=== PATIENT | male | born 1990 | race Two or more races ===

== ENCOUNTER → 2021-05-24 14:19 | Outpatient (BNVA) | payer OTHER, SELFPAY | PROVIDERS: PCP Hospitalist; Visit Provider Anesthesiology | DX: G89.21 Chronic pain due to trauma (principal); G93.1 Anoxic brain damage, not elsewhere classified; N31.9 Neuromuscular dysfunction of bladder, unspecified; R30.0 Dysuria; I69.30 Unspecified sequelae of cerebral infarction; S78.119A Complete traumatic amputation at level between unspecified hip and knee, initial encounter; F17.210 Nicotine dependence, cigarettes, uncomplicated; F12.90 Cannabis use, unspecified, uncomplicated; Z93.3 Colostomy status; Z99.3 Dependence on wheelchair | CPT/HCPCS: 99202 ==

== ENCOUNTER 2023-11-15 10:54 | Outpatient (AMB) | payer OTHER, SELFPAY ==
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
== END 2023-11-15 11:54 | disposition home or self-care (01) ==
PROVIDERS: Visit Provider Urology
DX: N20.0 Calculus of kidney (principal); N39.0 Urinary tract infection, site not specified
CPT/HCPCS: 99213

== ENCOUNTER → 2023-11-15 10:54 | Outpatient (BNVA) | payer OTHER, SELFPAY | PROVIDERS: Visit Provider Urology | DX: N20.0 Calculus of kidney (principal); N39.0 Urinary tract infection, site not specified | CPT/HCPCS: 99212 ==

== ENCOUNTER 2023-11-21 13:32 | Outpatient (REF) | payer OTHER, SELFPAY ==
--- NOTE | ~2023-11-21 | XR_ITS ---
EXAMINATION: XR ABDOMEN KUB CLINICAL INDICATION: Calculus of kidney. COMPARISON: CT abdomen and pelvis 04/16/2017. TECHNIQUE: 2 AP views of the abdomen. FINDINGS: Nonobstructive bowel gas pattern. Moderate amount of stool in the colon. Visualization of the bilateral kidneys is limited due to overlying bowel. Left ureteral stent overlying the left kidney proximally and bladder distally. A 0.9 cm calculus overlies the interpolar region of left kidney. Possible smaller left renal calculi, although evaluation limited due to overlying bowel. Surgical clips in the pelvis. Degenerative changes in the lumbar spine. XR/XR KUB IMPRESSION: Left ureteral stent. 0.9 cm calculus overlies the interpolar region of left kidney. Possible smaller left renal calculi, although evaluation limited due to overlying bowel.
== END 2023-11-21 13:33 | disposition home or self-care (01) ==
LOC: HO.XRAY 13:32
PROVIDERS: Visit Provider Urology
DX: N20.0 Calculus of kidney (principal); N31.9 Neuromuscular dysfunction of bladder, unspecified
CPT/HCPCS: 52000; 74018

== ENCOUNTER 2023-11-21 14:08 | Outpatient (AMB) | payer OTHER, SELFPAY ==
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
== END 2023-11-21 15:06 | disposition home or self-care (01) ==
PROVIDERS: Visit Provider Urology
DX: N20.0 Calculus of kidney (principal)
CPT/HCPCS: 52000

== ENCOUNTER 2024-01-11 11:59 | Outpatient (REF) | payer OTHER, SELFPAY ==
[2024-01-11 12:14] LABS: Appearance Urine Turbid; Color Urine Dark Yellow; Glucose Urine UA Negative (Negative); Leukocyte Esterase Urine Large (3+) (Negative); Nitrite Urine Positive (Negative); PH 6.5 (5.0-9.0); Specific Gravity - Urine 1.015 (1.005-1.025); UMIC TRIGGER UA YES; Urine Blood Large (3+) (Negative); Urine Ketones Negative (Negative); Urine Protein 100 (2+) mg/dL (Neg-Trace)
[2024-01-11 12:17] LABS: Bacteria Urine Trace (None Seen); RBC Urine >20 /HPF (0-2); Squamous Epithelial Cell Urine 0-2 /HPF (0-2); WBC Urine >50 /HPF (0-5)
== END 2024-01-11 12:00 | disposition home or self-care (01) ==
LOC: HO.LNP 11:59
PROVIDERS: Visit Provider Urology
DX: N39.0 Urinary tract infection, site not specified (principal); N20.0 Calculus of kidney
CPT/HCPCS: 81001; 87086; 87088; 87186

== ENCOUNTER 2024-01-15 08:58 | Day surgery (SDC) | payer OTHER, SELFPAY ==
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
[2024-01-15] VITALS (7 sets, daily range): BP systolic 99–161; BP diastolic 60–87; PULSE 77–99; RESP 16–18; TEMP 36.1–37.1; O2SAT 97–100; BMI 19.0
--- OUTSIDE RECORDS SUMMARY | 2024-01-15 09:00 | XMS_ITS | Continuity of Care Document ---
Author Organization [facility] Address [address] [place] [address]- Care Team Providers Care Chief Of Pediatric Urology Name Role Phone Not on Staff, PCP Primary Care Physician Unavail able Encounter [facility] Date(s): 09/21/20 - 10/21/[address] [id number] Attending Physician: Alexander Jama Admitting Physician: Alexander Jama Referring Physician: AdmtrAlexander Allergies, Adverse Reactions, Alerts Substance Reaction Severity Status morphine 1 Active linezolid Hives Active 1sweats Immunizations Not Given Vaccine Date Status Refusal Reason pneumococcal 23-valent vaccine 1 11/11/19 Not Give n Patient Refuses pneumococcal 23-valent vaccine 06/14/19 Not Given Patient Refuses pneumococcal 23-valent vaccine 02/02/15 Not Given Patient Refuses 1Result Comment: patient refuses stating dont bother me. Medications Acetaminophen 0 Refills, Maintenance, 02/06/15 11:41:47 Start Date: 02/06/15 Status: Ordered amitriptyline 25 mg oral tablet 25 mg, 1, tablet, By Mouth, Daily at bedtime, # 180 tablet, Refills 0, Maintenance, 02/19/20 9:56:00 EDT Start Date: 02/19/20 Status: Ordered baclofen 10 mg oral tablet 10 mg, 1, tablet, By Mouth, 3 times a day, # 270 tablet, Refills 0, Maintenance, 02/19/20 9:56:00 EDT Start Date: 02/19/20 Status: Ordered Colace sodium 100 mg oral capsule 1 capsule = 100 mg, By Mouth, 3 times a day, PRN Constipation, # 30 capsule, 0 Refills, Maintenance, 02/04/15 15:17:14, Capsule Start Date: 02/04/15 Stop Date: 02/14/15 Status: Ordered Compazine Tablet = 5 mg, By Mouth, 4 times a day, 0 Refills, Maintenance, 03/21/20 14:22:00 EDT, Tablet Start Date: 03/21/20 Status: Ordered duloxetine 30 mg oral enteric coated capsule 1 capsule = 30 mg, By Mouth, Daily, do not crush or chew, 0 Refills, Maintenance, 02/19/20 9:56:00 EDT, CR Capsule Start Date: 02/19/20 Status: Ordered lactulose 10 gm/15 ml oral syrup 30 mL = 20 Gm, By Mouth, 3 times a day, PRN Constipation, # 30 mL, 0 Refills, Maintenance, 06/04/1910:46:00 EST, Syrup, [facility], 30 mL By Mouth 3 times a day,PRN:Constipation, 175, cm, 06/03/19 20:50:00 EST, Height, 49.3, kg, ... Start Date: 06/04/19 Status: Ordered Lexapro 10 mg oral tablet 1 tablet = 10 mg, By Mouth, Daily in AM, # 30 tablet, 0 Refills, Maintenance, 06/16/19 9:33:00 EST,Tablet, [id number], 176, cm, 06/16/19 6:59:00 EST, Height, 49, kg, 06/14/19 16:20:00 EST, Dry Weight Start Date: 06/16/19 Status: Ordered MiraLax oral powder for reconstitution = 17 Gm, By Mouth, Daily, dissolve in water before taking, # 255 Gm, 0 Refills, Maintenance, 06/04/19 11:10:00 EST, REC Powder, [facility], 17 Gm By Mouth Daily,Instr:dissolve in water before taking, 175, cm, 06/03/19 20:50:00 EST, Heigh... Start Date: 06/04/19 Status: Ordered Neurontin 300 mg oral capsule 300 mg, 1, capsule, By Mouth, 3 times a day, # 180 capsule, Refills 0, Tot. Refills 0, Maintenance,06/04/19 10:45:00 EST, Route to Pharmacy Electronically, [facility], 175, cm, 06/03/19 20:50:00 EST, Height, 49.3, kg, 05/31/19 23:20:00... Start Date: 06/04/19 Status: Ordered nicotine 2 mg oral transmucosal gum = 2 mg, Chew, Every hour, PRN Other, Nicotine Withdrawal Symptoms (NOT to exceed 24 pieces per day), # 10 each, 0 Refills, Maintenance, 06/04/19 10:28:00 EST, Gum Start Date: 06/04/19 Status: Ordered ondansetron 4 mg oral tablet, disintegrating 1 tablet = 4 mg, By Mouth, Every 8 hours, PRN as needed for nausea/vomiting, # 15 tablet, 0 Refills, Maintenance, 08/15/20 5:41:00 EST, DIS Tablet, [facility] #[id number], Partial fill upon patient request if the prescription is for a schedule II opioid d... Start Date: 08/15/20 Status: Ordered ondansetron 4 mg oral tablet, disintegrating 1 tablet = 4 mg, By Mouth, Every 8 hours, PRN as needed for nausea/vomiting, # 9 tablet, 0 Refills,Maintenance, 05/18/20 23:27:00 EST, DIS Tablet, [id number], Partial fill upon patient request if the prescription is for a schedule II... Start Date: 05/18/20 Stop Date: 05/21/20 Status: Ordered ondansetron 4 mg oral tablet, disintegrating 1 tablet = 4 mg, By Mouth, Every 8 hours, PRN as needed for nausea/vomiting, # 10 tablet, 0 Refills, Maintenance, 06/14/20 0:24:00 EST, DIS Tablet, [facility]/pharmacy #[id number], Partial fill upon patient request if the prescription is for a schedule II opioid d... Start Date: 06/14/20 Status: Ordered oxyCODONE 10 mg oral tablet 1 tablet = 10 mg, By Mouth, Every 4 hours, PRN as needed for pain, 0 Refills, Maintenance, :55:00 EDT, Tablet, Partial fill upon patient request Start Date: 02/19/20 Status: Ordered Senna By Mouth, 0 Refills, Maintenance, 05/28/19 23:46:00 EST Start Date: 05/28/19 Status: Ordered Zofran 4 mg oral tablet 1 tablet = 4 mg, By Mouth, Every 8 hours, PRN Nausea & Vomiting, # 15 tablet, 0 Refills, Maintenance, 06/16/19 11:41:00 EST, Tablet, [facility], 176, cm, 06/16/19 6:59:00 EST, Height, 49, kg, 06/14/19 16:20:00 EST, Dry Weight Start Date: 06/16/19 Stop Date: 06/21/19 Status: Ordered Zofran 4 mg oral tablet 1 tablet = 4 mg, By Mouth, Every 8 hours, PRN as needed for nausea/vomiting, # 9 tablet, 0 Refills,Maintenance, 07/10/20 20:03:00 EST, Tablet, [facility]/pharmacy #[id number], Partial fill upon patient request if the prescription is for a schedule II opioid drug.... Start Date: 07/10/20 Status: Ordered Problem List Condition Effective Dates Status Health Status Inform ant Hemorrhagic shock(Confirmed) Active Bladder injury(Confirmed) Active Social History Social History Type Response Smoking Status [place] [facility] [place]: 02/04/15 Sex
--- OUTSIDE RECORDS SUMMARY | 2024-01-15 09:00 | XMS_ITS | Continuity of Care Document ---
Author Organization [facility] ter Address [address] [place] [id number]- Care Team Providers Care Pbx Manager Name Role Phone Not on Staff, PCP Primary Care Physician Unavail able [place] [facility] [place]/25/[address] [address]- Discharge Disposition: A-D/C Walkout Attending Physician: Not on Staff, Attending MD Admitting Physician: Not on Staff, Admitting MD Referring Physician: Not on Staff, Referring MD Allergies, Adverse Reactions, Alerts Substance Reaction Severity [...] mL, 0 Refills, Maintenance, 06/04/1910:46:00 EST, Syrup, [facility], 30 mL By Mouth 3 times a day,PRN:Constipation, 175, cm, 06/03/19 20:50:00 EST, Height, 49.3, kg, ... Start Date: 06/04/19 Status: Ordered Lexapro 10 mg oral tablet 1 tablet = 10 mg, By Mouth, Daily in AM, # 30 tablet, 0 Refills, Maintenance, 06/16/19 9:33:00 EST,Tablet, [facility] #[id number], 176, cm, 06/16/19 6:59:00 EST, Height, 49, kg, 06/14/19 16:20:00 EST, Dry Weight Start Date: 06/16/19 Status: Ordered MiraLax oral powder for reconstitution = 17 Gm, By Mouth, Daily, dissolve in water before taking, # 255 Gm, 0 Refills, Maintenance, 06/04/19 11:10:00 EST, REC Powder, [facility], 17 Gm By Mouth Daily,Instr:dissolve in water before taking, 175, cm, 06/03/19 20:50:00 EST, Heigh... Start Date: 06/04/19 Status: Ordered Neurontin 300 mg oral capsule 300 mg, 1, capsule, By Mouth, 3 times a day, # 180 capsule, Refills 0, Tot. Refills 0, Maintenance,06/04/19 10:45:00 EST, Route to Pharmacy Electronically, [facility], 175, cm, 06/03/19 20:50:00 [...] Refills, Maintenance, 08/15/20 5:41:00 EST, DIS Tablet, [facility]/pharmacy #[id number], Partial fill upon patient request if the prescription is for a schedule II opioid d... Start Date: 08/15/20 Status: Ordered ondansetron 4 mg oral tablet, disintegrating 1 tablet = 4 mg, By Mouth, Every 8 hours, PRN as needed for nausea/vomiting, # 9 tablet, 0 Refills,Maintenance, 05/18/20 23:27:00 EST, DIS Tablet, [facility] #[id number], Partial fill upon patient request if the prescription is for a schedule II... Start Date: 05/18/20 Stop Date: 05/21/20 Status: Ordered ondansetron 4 mg oral tablet, disintegrating 1 tablet = 4 mg, By Mouth, Every 8 hours, PRN as needed for nausea/vomiting, # 10 tablet, 0 Refills, Maintenance, 06/14/20 0:24:00 EST, DIS Tablet, [facility]/pharmacy #[id number], Partial fill upon patient request if [...] 0 Refills, Maintenance, 06/16/19 11:41:00 EST, Tablet, [facility], 176, cm, 06/16/19 6:59:00 EST, Height, 49, kg, 06/14/19 16:20:00 EST, Dry Weight Start Date: 06/16/19 Stop Date: 06/21/19 Status: Ordered Zofran 4 mg oral tablet 1 tablet = 4 mg, By Mouth, Every 8 hours, PRN as needed for nausea/vomiting, # 9 tablet, 0 Refills,Maintenance, 07/10/20 20:03:00 EST, Tablet, [facility]/pharmacy #[id number], Partial fill upon patient request if the prescription is for a schedule II opioid drug.... Start Date: 07/10/20 Status: Ordered Problem List Condition Effective Dates Status Health Status Inform ant Hemorrhagic shock(Confirmed) Active Bladder injury(Confirmed) Active Vital Signs Most recent to oldest [Reference Range]: 1 2 Oxygen Saturation [94-100 %] 98 % (12/24/20 11:51 PM) 100 % (12/24/20 11:33 PM) Pulse Rate [55-90 bpm] 89 bpm (12/24/20 11:51 PM) 102 bpm *H* (12/24/20 11:33 PM) Blood Pressure [90-138/55-84 mm Hg] 109/ 67mm Hg (12/24/20 11:51 PM) Respiratory Rate [16-30 br/min] 16 br/mi n (12/24/20 11:51 PM) 18 br/min (12/24/20 11:33 PM) Temperature [96.8-100.4 DegF] 98.7 DegF (12/24/20 11:51 PM) Mode of Delivery (Oxygen) Room air (12/24/20 11:51 PM) Room air (12/24/20 11:33 PM) Blood pressure sites Arm, right (12/24/20 11:51 PM) Temperature Route Oral (12/24/20 11:51 PM) Social History Social History Type Response Smoking Status Current some day smo ker entered on: 02/04/15 Sex
--- OUTSIDE RECORDS SUMMARY | 2024-01-15 09:00 | XMS_ITS | Continuity of Care Document ---
Author Organization [facility] ter Address [address] [place] [address]- Care Team Providers Care Gravity Meter Observer Name Role Phone Sara TRUJILLO, Cm Kunz Primary Care Physician Encounter [facility] [place] Date(s): 12/30/21 - 02/05/[address] [address] Attending Physician: Osei Ahuja MD Admitting Physician: Osei Ahuja MD Referring Physician: Osei Ahuja MD Allergies, Adverse Reactions, Alerts Substance Reaction Severity Status morphine 1 Active Compazine Active linezolid Hives Active 1sweats Immunizations Not Given Vaccine Date Status Refusal Reason influenza virus vaccine, inactivated 07/14/21 Not Given Patient Refuses pneumococcal 23-valent vaccine 1 11/11/19 Not Give n Patient Refuses pneumococcal 23-valent vaccine 06/14/19 Not Given Patient Refuses pneumococcal 23-valent vaccine 02/02/15 Not Given Patient Refuses 1Result Comment: patient refuses stating dont bother me. Medications docusate sodium 100 mg oral tablet 1 tablet = 100 mg, By Mouth, 2 times a day, PRN for constipation, 0 Refills, Maintenance, 02/22/21 14:35:00 EDT, Tablet, Partial fill upon patient request if the prescription is for a schedule II opioid drug. Start Date: 02/22/21 Status: Ordered LORazepam 0.5 mg oral tablet 1 tablet = 0.5 mg, By Mouth, 2 times a day, PRN Nausea Start Date: 02/22/21 Status: Ordered Mapap Arthritis Pain 650 mg oral tablet, extended release TAKE 2 TABLETS BY MOUTH EVERY 12 HOURS NEEDED FOR PAIN DO NOT TAKE WITH TYLENOL OR ACETAMINOPHEN Start Date: 02/22/21 Status: Ordered omeprazole 20 mg oral delayed release tablet 1 tablet = 20 mg, By Mouth, Daily, # 30 tablet, 0 Refills, Maintenance, 11/05/21 10:19:00 EDT, CR Tablet, [facility]/pharmacy #[id number], Partial fill upon patient request if the prescription is for a schedule II opioid drug., 175, cm, 10/29/21 14:02:00 EDT, Heig... Start Date: 11/05/21 Status: Ordered prochlorperazine 5 mg oral tablet 1 tablet = 5 mg, By Mouth, 3 times a day, PRN Nausea Start Date: 02/22/21 Status: Ordered Secur-t 12?? Drainable Standard Wear Transparent #[id number] Secur-t 12?? Drainable Standard Wear Transparent #[id number], See Instructions, # 20 each, Refills 11, Tot. 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 Start Date: 11/03/21 Status: Ordered sertraline 50 mg oral tablet 1 tablet = 50 mg, By Mouth, Daily Start Date: 02/22/21 Status: Ordered Therapeutic Multiple Vitamins with Minerals oral capsule 1 capsule, By Mouth, Daily, # 30 capsule, 0 Refills, Maintenance, 07/15/21 9:58:00 EST, Capsule, [facility], Partial fill upon patient request if the prescription is for a schedule II opioid drug., 1 capsule By Mouth Daily,x30 days, 175,... Start Date: 07/15/21 Stop Date: 08/14/21 Status: Ordered Problem List Condition Effective Dates Status Health Status Inform ant Anoxic brain injury(Confirmed) Active Hemorrhagic shock(Confirmed) Active Bladder injury(Confirmed) Active Neurogenic bladder disorder(Confirmed) Active TMJ dysfunction(Confirmed) Active Social History Social History Type Response Smoking Status Current some day smo ker entered on: 02/04/15 Sex Care Team Personnel Name: Sara TRUJILLO, Cm Kunz Address: [address] [place] [address]
--- OUTSIDE RECORDS SUMMARY | 2024-01-15 09:00 | XMS_ITS | Continuity of Care Document ---
Author Organization [facility] Address [address] [place] [address]- Care Team Providers Care Television Station Manager Name Role Phone Sara TRUJILLO, Cm Kunz Primary Care Phys[place] [facility] [place] 11/[place]/[address] [address] [place] Attending Physician: Alexander Jama Admitting Physician: AdmtrAlexander Referring Physician: Admtr, Alexander Allergies, Adverse Reactions, Alerts Substance Reaction Severity Status morphine 1 Active Compazine Active linezolid Hives Active 1sweats Immunizations Given and Recorded Vaccine Date Status Refusal Reason tetanus/diphtheria/pertussis, acel(Tdap) 09/27/21 Recorded influenza virus vaccine, inactivated 02/22/19 Khoi rded influenza virus vaccine, inactivated 04/05/17 Khoi rded Not Given Vaccine Date Status Refusal Reason influenza virus vaccine, inactivated 07/14/21 Not Given Patient Refuses pneumococcal 23-valent vaccine 1 11/11/19 Not Give n Patient Refuses pneumococcal 23-valent vaccine 06/14/19 Not Given Patient Refuses pneumococcal 23-valent vaccine 02/02/15 Not Given Patient Refuses 1Result Comment: patient refuses stating dont bother me. Medications aspirin 325 mg oral delayed release tablet 325 mg, 1, tablet, By Mouth, Daily, # 14 tablet, Refills 0, Tot. Refills 0, Maintenance, 08/01/22 10:37:00 EST, Route to Pharmacy Electronically, [facility], Partial fill upon patient request if the prescription is for a schedule II o... Start Date: 08/01/22 Status: Ordered docusate sodium 100 mg oral tablet 1 [...] OR ACETAMINOPHEN Start Date: 02/22/21 Status: Ordered pantoprazole 40 mg oral delayed release tablet 1 tablet = 40 mg, By Mouth, 3 times a day, 0 Refills, Maintenance, 07/29/22 15:48:00 EST Start Date: 07/29/22 Status: Ordered Right Leg Above Knee Prothetic Right Leg Above Knee Prothetic, See Instructions, # 1 each, Refills 1, Tot. Refills 1, Maintenance,DX: Right Leg Above knee amputation,Z89. 611,K2 wt-58KG ht-175cm, 04/04/22 8:25:00 EDT, Supply Start Date: 04/04/22 Status: Ordered Secur-t 12?? Drainable Standard Wear Transparent #[id number] Secur-t 12?? Drainable Standard Wear Transparent #[id number], See Instructions, # 20 each, Refills 11, Tot. 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 Start Date: 11/03/21 Status: Ordered Therapeutic Multiple Vitamins with Minerals oral capsule 1 capsule, By Mouth, Daily, # 30 capsule, 0 Refills, Maintenance, 07/15/21 9:58:00 EST, Capsule, [facility], Partial fill upon patient request if the prescription is for a schedule II opioid drug., 1 capsule By Mouth Daily,x30 days, 175,... Start Date: 07/15/21 Stop Date: 08/14/21 Status: Ordered Problem List Condition Confirmation Course Effective Dates Status [facility] Informant Anoxic brain injury Confirmed Active GERD (gastroesophageal reflux disease) Confirmed Active JAZLYN (generalized anxiety disorder) Confirmed Active Hemorrhagic shock Confirmed Active Bladder injury Confirmed Active Neurogenic bladder disorder Confirmed Active TMJ dysfunction Confirmed Active Social History Social History Type Response Smoking Status Current some day smo ker entered on: 02/04/15 Sex Patient Care team information Care Team Personnel Name: Ashley Lewis RN Position: [facility] RN Member Role: Primary Care Nurse Name: Karl Church RN Position: [facility] RN Member Role: Primary Care Nurse Name: Jay Bush RN Position: [facility] ED RN W/OE and Tasks Member Role: Primary Care Nurse Name: Reanna Davies RN Position: [facility] AMB Nurse Member Role: Primary Care Nurse Name: Kita Mahajan RN Position: [facility] RN Member Role: Primary Care Nurse Name: Sobeida Long RN Position: [facility] RN Member Role: Primary Care Nurse Name: Shoshana Vasquez RN Position: [facility] RN Member Role: Primary Care Nurse Name: Antelmo Johnson RN Position: [facility] RN Member Role: Primary Care Nurse Name: Abigail Chen RN Position: [facility] RN Member Role: Primary Care Nurse Name: Poonam Sanchez RN Position: [facility] RN Member Role: Primary Care Nurse Name: Jonas Hampton RN Position: [facility] RN Member Role: Primary Care Nurse Name: Tiffany Buckley RN Position: [facility] RN Member Role: Primary Care Nurse Name: Arlet Ferraro RN Position: [facility] RN Member Role: Primary Care Nurse Name: Jennifer Anderson RN Position: [facility] RN Member Role: Primary Care Nurse Name: Stella Macias RN Position: [facility] HBO Wound Member Role: Primary Care Nurse Name: Harshad Agee RN Position: [facility] RN Member Role: Primary Care Nurse Name: Juan J Hinojosa RN Position: [facility] RN Member Role: Primary Care Nurse Name: Cm Ruiz MD Position: Reference Physician Member Role: PCP Address: Address: [address] [place] [id number] Name: Esther Simmons Position: [facility] RN Member Role: Primary Care Nurse Name: Deepti Brown RN Position: [facility] RN Member Role: Primary Care Nurse Name: Carmelina Horta RN Position: [facility] RN Member Role: Primary Care Nurse Name: Sabrina Lobato RN Position: [facility] RN Member Role: Primary Care Nurse Name: Heaven Penn RN Position: [facility] RN Member Role: Primary Care Nurse Name: Mari Lira RN Position: [facility] RN Supv Member Role: Primary Care Nurse Name: Sho Vasquez RN Position: [facility] AMB Nurse Member Role: Primary Care Nurse Name: Alex Marmolejo RN Position: [facility] RN Member Role: Primary Care Nurse Name: Chantal Quezada Position: [facility] Outreach Member Role: Lifetime Consulting Physician Name: Angie Barry RN Position: [facility] RN Member Role: Primary Care Nurse Name: Rik Titus MD Position: [facility] Renal MD Member Role: Lifetime Consulting Physician Address: Address: [address] [place] [address] [facility] [address] Name: Shoshana Al RN Position: [facility] RN Member Role: Primary Care Nurse Name: Paula Douglas RN Position: [facility] RN Member Role: Primary Care Nurse Name: Sobeida Juarez RN Position: [facility] SN RN Member Role: Primary Care Nurse Name: Agnes Sam RN Position: [facility] RN Member Role: Primary Care Nurse Name: Arlet Campos RN Position: [facility] RN Member Role: Primary Care Nurse Name: Nusrat Salguero RN Position: [facility] Onco RN Member Role: Primary Care Nurse Care Team Related Persons Name: MICKY ROSE Name: MADELEINE DAWN Address: home [address] [place] [address] Name: [employer] Address: home [address] [place] [address] Name: SANA VASQUEZ Address: home [address] [place] [address]
--- OUTSIDE RECORDS SUMMARY | 2024-01-15 09:00 | XMS_ITS | Continuity of Care Document ---
Author Organization [facility] ter Address [address] [place] [address]- Care Team Providers Care Four H Agent Name Role Phone Not on Staff, PCP Primary Care Physician Unavail able Encounter [facility] [place] Date(s): 08/14/20 - 08/15/[address] [address]- Encounter Diagnosis Urinary tract infection(Final) - 08/15/20 Discharge Disposition: A-D/C Home Attending Physician: Courtney Orona DO Admitting Physician: Courtney Orona DO Referring Physician: Not on Staff, Referring MD [...] 9:56:00 EDT Start Date: 02/19/20 Status: Ordered cephalexin monohydrate 500 mg oral tablet 1 tablet = 500 mg, By Mouth, 4 times a day, for 7 days, # 28 tablet, 0 Refills, Acute 08/22/20 5:41:00 EDT, 08/15/20 5:41:00 EST, Tablet, [facility]/pharmacy #[id number], Partial fill upon patient request if the prescription is for a schedule II opioid drug., 173,... Start Date: 08/15/20 Stop Date: 08/22/20 Status: Ordered Colace sodium 100 mg oral capsule 1 capsule = 100 mg, By Mouth, 3 times a day, PRN Constipation, # 30 capsule, 0 Refills, Maintenance, 02/04/15 15:17:14, Capsule Start Date: 02/04/15 Stop Date: 02/14/15 Status: Ordered Compazine Tablet = 5 mg, By Mouth, 4 times a day, 0 Refills, Maintenance, 03/21/20 14:22:00 EDT, Tablet Start Date: 03/21/20 Status: Ordered Dilaudid Inj 0.5 mg, Injection, IV Push Slowly, Once, STAT, 08/15/20 4:46:00 EST, Stop date 08/15/20 4:46:00 EST Start Date: 08/15/20 Stop Date: 08/15/20 Status: Completed duloxetine 30 mg oral enteric coated capsule 1 capsule = 30 mg, By Mouth, Daily, do not crush or chew, 0 Refills, Maintenance, 02/19/20 9:56:00 EDT, CR Capsule Start Date: 02/19/20 Status: Ordered lactulose 10 gm/15 ml oral syrup 30 mL = 20 Gm, By Mouth, 3 times a day, PRN Constipation, # 30 mL, 0 Refills, Maintenance, 06/04/1910:46:00 EST, Syrup, [facility], 30 mL By Mouth 3 times a day,PRN:Constipation, 175, cm, 06/03/19 20:50:00 EST, Height, 49.3, kg, ... Start Date: 06/04/19 Status: Ordered Lexapro 10 mg oral tablet 1 tablet = 10 mg, By Mouth, Daily in AM, # 30 tablet, 0 Refills, Maintenance, 06/16/19 9:33:00 EST,Tablet, [facility] #[id number], 176, cm, 06/16/19 6:59:00 EST, Height, 49, kg, 01/10/20 16:20:00 EST, Dry Weight Start Date: 06/16/19 Status: Ordered MiraLax oral powder for reconstitution = 17 Gm, By Mouth, Daily, dissolve in water before taking, # 255 Gm, 0 Refills, Maintenance, 06/04/19 11:10:00 EST, REC Powder, [facility], 17 Gm By Mouth Daily,Instr:dissolve in water before taking, 175, cm, 06/03/19 20:50:00 EST, Heigh... Start Date: 06/04/19 Status: Ordered Neurontin 300 mg oral capsule 300 mg, 1, capsule, By Mouth, 3 times a day, # 180 capsule, Refills 0, Tot. Refills 0, Maintenance,06/04/19 10:45:00 EST, Route to Pharmacy Electronically, [facility], 175, cm, 06/03/19 20:50:00 [...] Refills, Maintenance, 08/15/20 5:41:00 EST, DIS Tablet, [facility]/pharmacy #[id number], Partial fill upon patient request if the prescription is for a schedule II opioid d... Start Date: 08/15/20 Status: Ordered ondansetron 4 mg oral tablet, disintegrating 1 tablet = 4 mg, By Mouth, Every 8 hours, PRN as needed for nausea/vomiting, # 9 tablet, 0 Refills,Maintenance, 05/18/20 23:27:00 EST, DIS Tablet, [facility] #[id number], Partial fill upon patient request if the prescription is for a schedule II... Start Date: 05/18/20 Stop Date: 05/21/20 Status: Ordered ondansetron 4 mg oral tablet, disintegrating 1 tablet = 4 mg, By Mouth, Every 8 hours, PRN as needed for nausea/vomiting, # 10 tablet, 0 Refills, Maintenance, 06/14/20 0:24:00 EST, DIS Tablet, [id number], Partial fill upon patient request if the prescription is for a schedule II opioid d... Start Date: 06/14/20 Status: Ordered oxyCODONE 10 mg oral tablet 1 tablet = 10 mg, By Mouth, Every 4 hours, PRN as needed for pain, 0 Refills, Maintenance, 209:55:00 EDT, Tablet, Partial fill upon patient request Start Date: 02/19/20 Status: Ordered Senna By Mouth, 0 Refills, Maintenance, 05/28/19 23:46:00 EST Start Date: 05/28/19 Status: Ordered Zofran 4 mg oral tablet 1 tablet = 4 mg, By Mouth, Every 8 hours, PRN Nausea & Vomiting, # 15 tablet, 0 Refills, Maintenance, 06/16/19 11:41:00 EST, Tablet, [facility], 176, cm, 06/16/19 6:59:00 EST, Height, 49, kg, 06/14/19 16:20:00 EST, Dry Weight Start Date: 06/16/19 Stop Date: 06/21/19 Status: Ordered Zofran 4 mg oral tablet 1 tablet = 4 mg, By Mouth, Every 8 hours, PRN as needed for nausea/vomiting, # 9 tablet, 0 Refills,Maintenance, 07/10/20 20:03:00 EST, Tablet, [facility]/pharmacy #[id number], Partial fill upon patient request if the prescription is for a schedule II opioid drug.... Start Date: 07/10/20 Status: Ordered Problem List Condition Effective Dates Status Health Status Inform ant Hemorrhagic shock(Confirmed) Active Bladder injury(Confirmed) Active Vital Signs Most recent to oldest [Reference Range]: 1 2 3 Oxygen Saturation [94-100 %] 99 % (08/15/20 6:15 AM) 98 % (08/15/20 3:55 AM) 99 % (08/14/20 11:28 PM) Pulse Rate [55-90 bpm] 70 bpm (08/15/20 6:15 AM) 68 bpm (08/15/20 3:55 AM) 93 bpm *H* (08/14/20 11:28 PM) Blood Pressure [90-138/55-84 mm Hg] 120/62mm Hg (08/15/20 6:15 AM) 122/66mm Hg (08/15/20 3:55 AM) 124/71mm Hg (08/14/20 11:28 PM) Respiratory Rate [16-30 br/min] 19 br/min (08/15/20 6:15 AM) 18 br/min (08/15/20 4:51 AM) 20 br/min (08/15/20 3:55 AM) Temperature [96.8-100.4 DegF] 98.6 DegF (08/15/20 6:15 AM) 98.3 DegF (08/14/20 11:28 PM) Mode of Delivery (Oxygen) Room air (08/15/20 6:15 AM) Room air (08/15/20 3:55 AM) Room air (08/14/20 11:28 PM) Blood pressure sites Arm, right (08/15/20 6:15 AM) Arm, right (08/15/20 3:55 AM) Temperature Route Oral (08/15/20 6:15 AM) Oral (08/14/20 11:28 PM) Social History Social History Type Response Smoking Status Current some day smo ker entered on: 02/04/15 Sex
--- OUTSIDE RECORDS SUMMARY | 2024-01-15 09:00 | XMS_ITS | Continuity of Care Document ---
Author Organization [facility] Adult Address [address] [place] [address]- Care Team Providers Care Home Health Lpn Name Role Phone Not on Staff, PCP Primary Care Physician Unavail able Encounter [facility] [place](s): 11/26/20 - 03/03/[address] [facility] [address] [place] [address]- Attending Physician: Tracey Cordoba NP Allergies, Adverse Reactions, Alerts Substance Reaction Severity [...] OR ACETAMINOPHEN Start Date: 02/22/21 Status: Ordered ondansetron 4 mg oral tablet 1 tablet = 4 mg, By Mouth, Every 8 hours, PRN Nausea Start Date: 02/22/21 Status: Ordered oxyCODONE 5 mg oral tablet 5 mg, 1, tablet, By Mouth, Every 4 hours, Refills 0, Tot. Refills 0 Start Date: 02/22/21 Status: Ordered prochlorperazine 5 mg oral tablet 1 tablet = 5 mg, By Mouth, 3 times a day, PRN Nausea Start Date: 02/22/21 Status: Ordered sertraline 50 mg oral tablet 1 tablet = 50 mg, By Mouth, Daily Start Date: 02/22/21 Status: Ordered Problem List Condition Effective Dates Status Health Status Inform ant Anoxic brain injury(Confirmed) Active Hemorrhagic shock(Confirmed) Active Bladder injury(Confirmed) Active Neurogenic bladder disorder(Confirmed) Active TMJ dysfunction(Confirmed) Active Social History Social History Type Response Smoking Status Current some day smo ker entered on: 02/04/15 Sex
--- OUTSIDE RECORDS SUMMARY | 2024-01-15 09:00 | XMS_ITS | Continuity of Care Document ---
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 Name Role Phone Not on Staff, PCP Primary Care Physician Unavail able Encounter [facility] Date(s): 06/13/19 - 06/27/[address] [id number]- [facility] Discharge Disposition: A-Transfer VNA/Home Health Attending Physician: Jaquelin Bernstein DO Admitting Physician: Anil Champion MD Referring Physician: Not on Staff, Referring MD Allergies, Adverse Reactions, Alerts Substance Reaction Severity Status morphine 1 Active linezolid Hives Active 1sweats Immunizations Not Given Vaccine Date Status Refusal Reason pneumococcal 23-valent vaccine 06/14/19 Not Given Patient Refuses pneumococcal 23-valent vaccine 02/02/15 Not Given Patient Refuses Medications Acetaminophen 0 Refills, Maintenance, 02/06/15 11:41:47 Start Date: 02/06/15 Status: Ordered Colace sodium 100 mg oral capsule 1 capsule = 100 mg, By Mouth, 3 times a day, PRN Constipation, # 30 capsule, 0 Refills, Maintenance, 02/04/15 15:17:14, Capsule Start Date: 02/04/15 Stop Date: 02/14/15 Status: Ordered lactulose 10 gm/15 ml oral syrup 30 mL = 20 Gm, By Mouth, 3 times a day, PRN Constipation, # 30 mL, 0 Refills, Maintenance, 06/04/1910:46:00 EST, Syrup, [facility], 30 mL By Mouth 3 times a day,PRN:Constipation, 175, cm, 06/03/19 20:50:00 EST, Height, 49.3, kg, ... Start Date: 06/04/19 Status: Ordered Lexapro 10 mg oral tablet 1 tablet = 10 mg, By Mouth, Daily in AM, # 30 tablet, 0 Refills, Maintenance, 06/16/19 9:33:00 EST,Tablet, [id number], 176, cm, 06/16/19 6:59:00 EST, Height, 49, kg, 06/14/19 16:20:00 EST, Dry Weight Start Date: 06/16/19 Status: Ordered melatonin 5 mg oral tablet, extended release 1 tablet = 5 mg, By Mouth, Daily at bedtime, for 30 days, # 30 tablet, 0 Refills, Acute 07/16/19 9:33:00 EST, 06/16/19 9:33:00 EST, ER Tablet, [facility] #[id number], 176, cm, 06/16/19 6:59:00 EST, Height, 49, kg, 06/14/19 16:20:00 EST, Dry Weight Start Date: 06/16/19 Stop Date: 07/16/19 Status: Ordered metoclopramide 10 mg oral tablet 1 tablet = 10 mg, By Mouth, 3 times a day before meals and bedtime, # 30 tablet, 0 Refills, Maintenance, 06/04/19 10:47:00 EST, Tablet, [facility], 175, cm, 06/03/19 20:50:00 EST, Height, 49.3, kg, 05/31/19 23:20:00 EST, Dry Weight Start Date: 06/04/19 Status: Ordered MiraLax oral powder for reconstitution = 17 Gm, By Mouth, Daily, dissolve in water before taking, # 255 Gm, 0 Refills, Maintenance, 06/04/19 11:10:00 EST, REC Powder, [facility], 17 Gm By Mouth Daily,Instr:dissolve in water before taking, 175, cm, 06/03/19 20:50:00 EST, Walter... Start Date: 06/04/19 Status: Ordered Neurontin 300 mg oral capsule 600 mg, 2, capsule, By Mouth, 3 times a day, # 180 capsule, Refills 0, Tot. Refills 0, Maintenance,06/04/19 10:45:00 EST, Route to Pharmacy Electronically, [facility], 175, cm, 06/03/19 20:50:00 EST, Height, 49.3, kg, 05/31/19 23:20:00... Start Date: 06/04/19 Status: Ordered nicotine 2 mg oral transmucosal gum = 2 mg, Chew, Every hour, PRN Other, Nicotine Withdrawal Symptoms (NOT to exceed 24 pieces per day), # 10 each, 0 Refills, Maintenance, 06/04/19 10:28:00 EST, Gum Start Date: 06/04/19 Status: Ordered oxyCODONE 5 mg oral tablet 5 mg, 1, tablet, By Mouth, Every 6 hours, PRN, for 3 days, # 12 tablet, Refills 0, Tot. Refills 0, Acute 06/30/19 13:15:00 EST, Pain , Moderate, 06/27/19 13:15:00 EST, Route to Pharmacy Electronically, [facility] #[id number], Partial fill upon pa... Start Date: 06/27/19 Stop Date: 06/30/19 Status: Ordered Senna By Mouth, 0 Refills, Maintenance, 05/28/19 23:46:00 EST Start Date: 05/28/19 Status: Ordered Zofran 4 mg oral tablet 1 tablet = 4 mg, By Mouth, Every 8 hours, PRN Nausea & Vomiting, # 15 tablet, 0 Refills, Maintenance, 06/16/19 11:41:00 EST, Tablet, [facility], 176, cm, 06/16/19 6:59:00 EST, Height, 49, kg, 06/14/19 16:20:00 EST, Dry Weight Start Date: 06/16/19 Stop Date: 06/21/19 Status: Ordered Problem List Condition Effective Dates Status Health Status Inform ant Hemorrhagic shock(Confirmed) Active Bladder injury(Confirmed) Active Results Orders for Microbiology Reports Name Date Urine Culture (URINE CULTURE) 06/20/19 Microbiology Reports TEST:Urine Culture STATUS:Auth (Verified) BODY SITE: SOURCE:URINE COLLECTED DATE/TIME:06/20/19 1:00 PM Urine Culture SPECIMEN DESCRIPTION : URINE SPECIAL REQUESTS : NONE CULTURE : Mixed bacterial bertrand, indicative of urogenital contamination. REPORT STATUS : FINAL 06/22/2019 Vital Signs Most recent to oldest [Reference Range]: 1 2 3 Height 176 cm (06/27/19 12:00 AM) 176 cm (06/26/19 7:40 PM) 176 cm (06/26/19 3:05 PM) Weight 49 kg (06/13/19 9:57 PM) Oxygen Saturation [94-100 %] 99 % (06/27/19 12:00 AM) 99 % (06/26/19 7:40 PM) 99 % (06/26/19 3:05 PM) Pulse Rate [55-90 bpm] 72 bpm (06/27/19 12:00 AM) 87 bpm (06/26/19 7:40 PM) 96 bpm *H* (06/26/19 3:05 PM) Body Mass Index [18.5-24.99] 15.82 *L* (06/13/19 9:57 PM) Blood Pressure [90-138/55-84 mm Hg] 98/55mm Hg (06/27/19 12:00 AM) 106/53mm Hg (06/26/19 7:40 PM) 108/60mm Hg (06/26/19 3:05 PM) Respiratory Rate [16-30 br/min] 18 br/min (06/27/19 12:34 PM) 18 br/min (06/27/19 10:39 AM) 19 br/min (06/27/19 12:08 AM) Temperature [96.8-100.4 DegF] 98.0 DegF (06/27/19 12:00 AM) 97.9 DegF (06/26/19 7:40 PM) 97.6 DegF (06/26/19 3:05 PM) Mode of Delivery (Oxygen) Room air (06/27/19 12:00 AM) Room air (06/26/19 7:40 PM) Room air (06/26/19 3:05 PM) Blood pressure sites Arm, right (06/27/19 12:00 AM) Arm, right (06/26/19 7:40 PM) Arm, right (06/26/19 3:05 PM) Temperature Route Oral (06/27/19 12:00 AM) Oral (06/26/19 7:40 PM) Oral (06/26/19 3:05 PM) Dry Weight 49 kg (1/9/20 9:57 PM) Weight Obtained Via Patient/family state d (06/13/19 9:57 PM) Dry Weight Obtained Via Patient/family s tated (06/13/19 9:57 PM) Social History Social History Type Response Smoking Status Current some day jules lomax entered on: 02/04/15 Sex
--- OUTSIDE RECORDS SUMMARY | 2024-01-15 09:01 | XMS_ITS | Continuity of Care Document ---
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 Medications Dilaudid Inj 0.5 mg, Injection, IV Push Slowly, Every 3 hours, PRN for Pain , Severe, Routine, 07/13/21 2:13:00 EST Start Date: 07/13/21 Stop Date: 07/15/21 Status: Discontinued docusate sodium 100 mg oral tablet 1 [...] mg, By Mouth, Every 8 hours, PRN Nausea, for 5 days, # 15 tablet, 0 Refills, Acute 07/20/21 9:57:00 EST, 07/15/21 9:57:00 EST, Tablet, [facility], Partial fill upon patientrequest if the prescription is for a schedule II op... Start Date: 07/15/21 Stop Date: 07/20/21 Status: Ordered oxyCODONE 5 mg oral tablet 5 mg, 1, tablet, By Mouth, Every 6 hours, PRN, for 3 days, # 12 tablet, Refills 0, Tot. Refills 0, Acute 07/18/21 9:57:00 EST, Pain , Severe, 07/15/21 9:57:00 EST, Route to Pharmacy Electronically, [facility], Partial fill upon patient r... Start Date: 07/15/21 Stop Date: 07/18/21 Status: Ordered prochlorperazine 5 mg oral tablet [...] 0 Refills, Maintenance, 07/15/21 9:58:00 EST, Capsule, [facility], Partial fill upon patient request if the prescription is for a schedule II opioid drug., 1 capsule By Mouth Daily,x30 days, 175,... Start Date: 07/15/21 Stop Date: 08/14/21 Status: Ordered thiamine 100 mg oral tablet 100 mg, 1, tablet, By Mouth, Daily, for 30 days, # 30 tablet, Refills 0, Tot. Refills 0, Acute 08/14/21 9:58:00 EST, 07/15/21 9:58:00 EST, Route to Pharmacy Electronically, [facility], Partial fill upon patient request if the prescriptio... Start Date: 07/15/21 Stop Date: 08/14/21 Status: Ordered Problem List Condition Effective Dates Status Health Status Inform ant Anoxic brain injury(Confirmed) Active Hemorrhagic shock(Confirmed) Active Bladder injury(Confirmed) Active Neurogenic bladder disorder(Confirmed) Active TMJ dysfunction(Confirmed) Active Results Orders for Microbiology Reports Name Date Urine Culture (URINE CULTURE) 07/12/21 Blood Culture 07/12/21 Blood Culture #2 07/12/21 Microbiology Reports TEST:Urine Culture STATUS:Auth (Verified) BODY SITE: SOURCE:URINE COLLECTED DATE/TIME:07/12/21 11:05 PM Urine Culture SPECIMEN DESCRIPTION : URINE SPECIAL REQUESTS : NONE CULTURE : Mixed bacterial bertrand, indicative of urogenital contamination. REPORT STATUS : FINAL 07/14/2021 TEST:Blood Culture STATUS:Unauthenticated BODY SITE: SOURCE:Blood COLLECTED DATE/TIME:07/12/21 7:03 PM Blood Culture SPECIMEN DESCRIPTION : BLOOD LAC SPECIAL REQUESTS : NONE CULTURE : NO GROWTH 3 DAYS REPORT STATUS : PRELIMINARY REPORT TEST:Blood Culture, Second Order STATUS:Unauthenticated BODY SITE: SOURCE:Blood COLLECTED DATE/TIME:07/12/21 7:03 PM Blood Culture, Second Order SPECIMEN DESCRIPTION : BLOOD RAC SPECIAL REQUESTS : NONE CULTURE : NO GROWTH 3 DAYS REPORT STATUS : PRELIMINARY REPORT Vital Signs Most recent to oldest [Reference Range]: 1 2 3 Oxygen Saturation [94-100 %] 100 % (07/15/21 8:42 AM) 100 % (07/14/21 9:48 PM) 96 % (07/13/21 2:59 PM) Pulse Rate [55-90 bpm] 86 bpm (07/15/21 8:42 AM) 84 bpm (07/14/21 9:48 PM) 89 bpm (07/13/21 8:17 PM) Blood Pressure [90-138/55-84 mm Hg] 136/58mm Hg (07/15/21 8:42 AM) 131/67mm Hg (07/14/21 9:48 PM) 122/71mm Hg (07/13/21 8:17 PM) Respiratory Rate [16-30 br/min] 18 br/min (07/15/21 8:52 AM) 18 br/min (07/15/21 8:42 AM) 20 br/min (07/15/21 5:58 AM) Temperature [96.8-100.4 DegF] 98.0 DegF (07/15/21 8:42 AM) 97.7 DegF (07/14/21 9:48 PM) 97.8 DegF (07/13/21 8:17 PM) Mode of Delivery (Oxygen) Room air (07/15/21 8:42 AM) Room air (07/14/21 9:48 PM) Room air (07/13/21 2:59 PM) Blood pressure sites Arm, right (07/15/21 8:42 AM) Arm, left (07/14/21 9:48 PM) Arm, left (07/13/21 8:17 PM) Temperature Route Oral (07/14/21 9:48 PM) Oral (07/13/21 8:17 PM) Oral (07/13/21 2:59 PM) Social History Social History Type Response Smoking Status Current some day smo ker entered on: 02/04/15 Sex
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
--- OUTSIDE RECORDS SUMMARY | 2024-01-15 09:01 | XMS_ITS | Continuity of Care Document ---
Author Organization [facility] Address [address] [place] [address]- Care Team Providers Care Steeplechase Jockey Name Role Phone Sara TRUJILLO, Cm Kunz Primary Care Physician Encounter [facility] Date(s): 04/10/23 - 05/10/23 [facility] [address] [place] [address]- Attending Physician: Alexander Jama Admitting Physician: Alexander Jama Referring Physician: Alexander Jama Allergies, Adverse Reactions, Alerts Substance Reaction Severity Status morphine 1 Hives Active Compazine Hives Active linezolid Hives Active 1sweats Immunizations Given and Recorded Vaccine Date Status Refusal Reason tetanus/diphtheria/pertussis, acel(Tdap) 09/27/21 Recorded influenza virus vaccine, inactivated 02/22/19 Khoi rded influenza virus vaccine, inactivated 04/05/17 Khoi rded Medications aspirin 325 mg oral delayed release tablet 325 mg, 1, tablet, By Mouth, Daily, # 14 tablet, Refills 0, Tot. Refills 0, Maintenance, 08/01/22 10:37:00 EST, Route to Pharmacy Electronically, [facility], Partial fill upon patient request [...] ACETAMINOPHEN Start Date: 02/22/21 Status: Ordered omeprazole 40 mg oral enteric coated capsule 1 capsule = 40 mg, By Mouth, 2 times a day, 30 min before a meal, # 60 capsule, 10 Refills, Maintenance, 04/10/23 11:54:00 EST, [facility]acy #[id number], Partial fill upon patient request if the prescription is for a schedule II opioid drug., 172, cm, 04/10... Start Date: 04/10/23 Status: Ordered pantoprazole 40 mg oral delayed [...] Ordered Secur-t 12?? Drainable Standard Wear Transparent #[id number] Secur-t 12?? Drainable Standard Wear Transparent #[id number], See Instructions, # 20 each, Refills 11, Tot. 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 Start Date: 11/03/21 Status: Ordered Therapeutic Multiple Vitamins with Minerals oral capsule 1 capsule, By Mouth, Daily, # 30 capsule, 0 Refills, Maintenance, 07/15/21 9:58:00 EST, Capsule, [facility], Partial fill upon patient [...] disorder Confirmed Active TMJ dysfunction Confirmed Active Underweight Confirmed Active Social History Social History Type Response Smoking Status Current some day smo ker entered on: 02/04/15 Sex Patient Care team information Care Team Personnel Name: Ashley Lewis RN Position: [facility] RN Member Role: Primary Care Nurse Name: Karl Church RN Position: [facility] RN Member Role: Primary Care Nurse Name: Jay Bush RN Position: [facility] ED RN W/OE and Tasks Member Role: Primary Care Nurse Name: Reanna Davies RN Position: [facility] AMB Nurse Member Role: Primary Care Nurse Name: Kita Mahajan RN Position: [facility] RN Member Role: Primary Care Nurse Name: Sobeida Long RN Position: [facility] RN Member Role: Primary Care Nurse Name: Shoshana Vasquez RN Position: [facility] RN Member Role: Primary Care Nurse Name: Antelmo Johnson RN Position: [facility] RN Member Role: Primary Care Nurse Name: Abigail Chen RN Position: [facility] RN Member Role: Primary Care Nurse Name: Poonam Sanchez RN Position: [facility] RN Member Role: Primary Care Nurse Name: Jonas Hampton RN Position: [facility] RN Member Role: Primary Care Nurse Name: Tiffany Buckley RN Position: [facility] RN Member Role: Primary Care Nurse Name: Arlet Ferraro RN Position: [facility] RN Member Role: Primary Care Nurse Name: Jennifer Anderson RN Position: [facility] RN Member Role: Primary Care Nurse Name: Stella Macias RN Position: [facility] HBO Wound Member Role: Primary Care Nurse Name: Harshad Agee RN Position: [facility] RN Member Role: Primary Care Nurse Name: Sobeida Dickson RN Position: [facility] RN Member Role: Primary Care Nurse Name: Juan J Hinojosa RN Position: [facility] RN Member Role: Primary Care Nurse Name: Cm Ruiz MD Position: Reference Physician Member Role: PCP Address: Address: [address] [place] [id number] Name: Esther Simmons Position: [facility] RN Member Role: Primary Care Nurse Name: Deepti Brown RN Position: [facility] RN Member Role: Primary Care Nurse Name: Sabrina Lobato RN Position: [facility] RN Member Role: Primary Care Nurse Name: Heaven Penn RN Position: [facility] RN Member Role: Primary Care Nurse Name: Khloe Bonilla RN Position: [facility] RN Member Role: Primary Care Nurse Name: Mari Lira RN Position: [facility] RN Supv Member Role: Primary Care Nurse Name: Sho Vasquez RN Position: [facility] AMB Nurse Member Role: Primary Care Nurse Name: Alex Marmolejo RN Position: [facility] RN Member Role: Primary Care Nurse Name: Chantal Quezada Position: [facility] Outreach Member Role: Lifetime Consulting Physician Name: Angie Barry RN Position: [facility] RN Member Role: Primary Care Nurse Name: Rik Titus MD Position: [facility] Renal MD Member Role: Lifetime Consulting Physician Address: Address: [address] [place] [address] [facility] [address] Name: Shoshana Al RN Position: [facility] RN Member Role: Primary Care Nurse Name: Paula Douglas RN Position: [facility] RN Member Role: Primary Care Nurse Name: Sobeida Juarez RN Position: [facility] SN RN Member Role: Primary Care Nurse Name: Agnes Sam RN Position: [facility] RN Member Role: Primary Care Nurse Name: Arlet Campos RN Position: [facility] RN Member Role: Primary Care Nurse Name: Nusrat Salguero RN Position: [facility] Onco RN Member Role: Primary Care Nurse Care Team Related Persons Name: MICKY ROSE Name: MADELEINE DAWN Address: home [address] [place] [address] Name: [employer] Address: [address] [place] [address] Name: SANA VASQUEZ Address: [address] [place] [address]
--- OUTSIDE RECORDS SUMMARY | 2024-01-15 09:01 | XMS_ITS | Continuity of Care Document ---
Author Organization [facility] ter Address [address] [place] [address]- Care Team Providers Care Research Archaeologist Name Role Phone Sara TRUJILLO, Cm Kunz Primary Care Physician [place] [facility] [place] - 10/27/[address] [address]- Encounter Diagnosis Staghorn calculus(Final) - 10/27/22 Discharge Disposition: A-D/C AMA Attending Physician: Omkar Mclean MD Admitting Physician: Omkar Mclean MD Referring Physician: Not on Staff, Referring [...] refuses stating dont bother me. Medications Acetaminophen Tablet 975 mg, Tablet, By Mouth, Once, STAT, 10/27/22 13:40:00 EDT, Stop date 10/27/22 13:40:00 EDT Start Date: 10/27/22 Stop Date: 10/27/22 Status: Completed aspirin 325 mg oral delayed release tablet 325 mg, 1, tablet, By Mouth, Daily, # 14 tablet, Refills 0, Tot. Refills 0, Maintenance, 08/01/22 10:37:00 EST, Route to Pharmacy Electronically, [facility], Partial fill upon patient request if the prescription is for a schedule II o... Start Date: 08/01/22 Status: Ordered Dilaudid Inj 0.5 mg, Injection, IV Push Slowly, Once, STAT, 10/27/22 13:40:00 EDT, Stop date 10/27/22 13:40:00 EDT Start Date: 10/27/22 Stop Date: 10/27/22 Status: Completed docusate sodium 100 mg oral tablet 1 [...] Ordered Secur-t 12?? Drainable Standard Wear Transparent #[id number] Secur-t 12?? Drainable Standard Wear Transparent #[id number], See Instructions, # 20 each, Refills 11, Tot. 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 Start Date: 11/03/21 Status: Ordered Therapeutic Multiple Vitamins with Minerals oral capsule 1 capsule, By Mouth, Daily, # 30 capsule, 0 Refills, Maintenance, 07/15/21 9:58:00 EST, Capsule, [facility], Partial fill upon [...] Exam Date Time Procedure Performing Provider Status 10/27/22 4:[address] Abd/Pelvis W/ IV Contrast Only Yuliya Carter; Auth (Verified) Notes: (CT Abd/Pelvis W/ IV Contrast Only) Reason For Exam: known kidney stone now w fever chills concern for infection;Other: RESULT: CT Abd/Pelvis W/ IV Contrast Only CT Abd/Pelvis W/ IV Contrast Only HX OF PRESENT ILLNESS: Patient reports lower back pain and LLQ abd pain x 2-3 weeks that became severe today. Also, endorses N V. Taking abx for kidney stone.; Reason: known kidney stone now w fever chills concern for infection; Clinical Question(s): Abscess; : TECHNIQUE: Spiral CT through the abdomen and pelvis with IV contrast formatted in 3 planes. 75 cc of Omnipaque 300 was administered intravenously. This study was performed without oral contrast. Weight-based protocol using automatic tube modulation was used to optimize exposure parameters. CTDIvol Body: 11.70 mGy, DLP Body: 562 mGy*cm. COMPARISON: Multiple priors, the most recent from 10/09/2022. FINDINGS: Packaging Designer View Findings, Lines and Tubes: None. Visualized Chest: Mild bibasilar atelectasis. No pleural effusion. The heart is normal in size. No pericardial effusion. Diaphragm: Normal. Liver: Multiple subcentimeter hypodensities which are too small to characterize, likely representing hepatic cysts (in the absence of known malignancy) Gallbladder: Cholelithiasis without evidence of acute cholecystitis. Bile ducts: No biliary ductal dilation. Spleen: Normal. Pancreas: Normal. Adrenal glands: Normal. Kidneys and ureters: Again seen is a large staghorn calculus in the left renal pelvis which appearsunchanged from the prior study. Mild pelvocaliectasis with thickening of the uroepithelium or in the renal pelvis. Small hypodensities that are too small to characterize are noted, requiring no dedicated follow up. The right kidney is unremarkable. Bladder: Multiple large left urinary bladder calculi. Again seen is diffuse circumferential wall thickening. Reproductive organs: Unremarkable. Stomach, small bowel, and large bowel: No evidence of acute obstruction. Left lower quadrant colostomy. Appendix: Normal. Peritoneum and retroperitoneum: No ascites or pneumoperitoneum. No omental or mesenteric lesions. Lymph nodes: No enlarged lymph nodes. Blood vessels: Normal. No aneurysm. No evidence of venous thrombosis. Abdominal and pelvic wall: Stable postsurgical changes in the anterior abdominal wall. Bones: No acute abnormality. IMPRESSION: When compared to the study from 10/09/2022: 1. Unchanged left renal staghorn calculus with mild hydronephrosis and thickening of the adjacent uroepithelial wall. 2. Multiple left urinary bladder calculi with associated diffuse wall thickening. Overall unchangedfrom prior study. 3. Cholelithiasis without evidence of acute cholecystitis. I have personally reviewed the images and I agree with this report. WSN: [id number] Ordering Physician: Melecio Davenport Dictated By: Deidra Lance MD Dictated Date/Time: 10/27/22 5:12 pm Reviewed By: Michelle Umana MD Signed By: Michlele Umana MD Signed Date/Time: 10/27/22 5:17 pm Transcribed By: SAVANNAH Transcribed Date/Time: 10/27/22 4:58 pm Vital Signs Most recent to oldest [Reference Range]: 1 2 3 Oxygen Saturation [94-100 %] 100 % (10/27/22 5:44 PM) 100 % (10/27/22 4:42 PM) 100 % (10/27/22 12:54 PM) Pulse Rate [55-90 bpm] 72 bpm (10/27/22 5:44 PM) 75 bpm (10/27/22 4:42 PM) 78 bpm (10/27/22 12:54 PM) Blood Pressure [90-138/55-84 mm Hg] 115/65mm Hg (10/27/22 5:44 PM) 122/67mm Hg (10/27/22 4:42 PM) 111/66mm Hg (10/27/22 12:54 PM) Respiratory Rate [16-30 br/min] 18 br/min (10/27/22 5:44 PM) 18 br/min (10/27/22 4:51 PM) 18 br/min (10/27/22 4:50 PM) Temperature [96.8-100.4 DegF] 97.8 DegF (10/27/22 12:54 PM) 98.4 DegF (10/27/22 11:54 AM) Mode of Delivery (Oxygen) Room air (10/27/22 5:44 PM) Room air (10/27/22 4:42 PM) Room air (10/27/22 12:54 PM) Blood pressure sites Arm, left (10/27/22 5:44 PM) Arm, left (10/27/22 4:42 PM) Arm, left (10/27/22 12:54 PM) Temperature Route Oral (10/27/22 12:54 PM) Oral (10/27/22 11:54 AM) Social History Social History Type Response Smoking Status Current some day smo ker entered on: 02/04/[address] Abdomen and Pelvis W contrast IV * [facility] , CIS S: TRANSCRIBE Dong TRUJILLO, Michelle: VERIFY Casi TRUJILLO, Deidra A: SIGN Event Display: Result: Authored Date: CT Abd/Pelvis W/ IV Contrast Only HX OF PRESENT ILLNESS: Patient reports lower back pain and LLQ abd pain x 2-3 weeks that became severe today. Also, endorses N V. Taking abx for kidney stone.; Reason: known kidney stone now w fever chills concern for infection; Clinical Question(s): Abscess; : TECHNIQUE: Spiral CT through the abdomen and pelvis with IV contrast formatted in 3 planes. 75 cc of Omnipaque 300 was administered intravenously. This study was performed without oral contrast. Weight-based protocol using automatic tube modulation was used to optimize exposure parameters. CTDIvol Body: 11.70 mGy, DLP Body: 562 mGy*cm. COMPARISON: Multiple priors, the most recent from 10/09/2022. FINDINGS: Packaging Designer View Findings, Lines and Tubes: None. Visualized Chest: Mild bibasilar atelectasis. No pleural effusion. The heart is normal in size. No pericardial effusion. Diaphragm: Normal. Liver: Multiple subcentimeter hypodensities which are too small to characterize, likely representing hepatic cysts (in the absence of known malignancy) Gallbladder: Cholelithiasis without evidence of acute cholecystitis. Bile ducts: No biliary ductal dilation. Spleen: Normal. Pancreas: Normal. Adrenal glands: Normal. Kidneys and ureters: Again seen is a large staghorn calculus in the left renal pelvis which appearsunchanged from the prior study. Mild pelvocaliectasis with thickening of the uroepithelium or in the renal pelvis. Small hypodensities that are too small to characterize are noted, requiring no dedicated follow up. The right kidney is unremarkable. Bladder: Multiple large left urinary bladder calculi. Again seen is diffuse circumferential wall thickening. Reproductive organs: Unremarkable. Stomach, small bowel, and large bowel: No evidence of acute obstruction. Left lower quadrant colostomy. Appendix: Normal. Peritoneum and retroperitoneum: No ascites or pneumoperitoneum. No omental or mesenteric lesions. Lymph nodes: No enlarged lymph nodes. Blood vessels: Normal. No aneurysm. No evidence of venous thrombosis. Abdominal and pelvic wall: Stable postsurgical changes in the anterior abdominal wall. Bones: No acute abnormality. IMPRESSION: When compared to the study from 10/09/2022: 1. Unchanged left renal staghorn calculus with mild hydronephrosis and thickening of the adjacent uroepithelial wall. 2. Multiple left urinary bladder calculi with associated diffuse wall thickening. Overall unchangedfrom prior study. 3. Cholelithiasis without evidence of acute cholecystitis. I have personally reviewed the images and I agree with this report. WSN: [id number] Ordering Physician: Melecio Davenport Dictated By: Deidra Lance MD Dictated Date/Time: 10/27/22 5:12 pm Reviewed By: Michelle Umana MD Signed By: Michelle Umana MD Signed Date/Time: 10/27/22 5:17 pm Transcribed By: SAVANNAH Transcribed Date/Time: 10/27/22 4:58 pm Patient Care team information Care Team Personnel Name: Ashley Lewis RN Position: [facility] RN Member Role: Primary Care Nurse Name: Karl Church RN Position: [facility] RN Member Role: Primary Care Nurse Name: Jay Bush RN Position: [facility] ED RN W/OE and Tasks Member Role: Primary Care Nurse Name: Reanna Davies RN Position: [facility] AMB [...] Care Nurse Name: Jennifer Anderson RN Position: [facility] RN Member [...] Reference Physician Member Role: PCP Address: Address: [address] [place] [id number] Name: Esther Simmons Position: [facility] [...] Member Role: Lifetime Consulting Physician Address: Address: [address] [place] [address] [facility] [place] [address]- Name: Shoshana Al RN Position: [facility] RN Member Role: Primary Care Nurse Name: Paula Douglas RN Position: [facility] RN [...] RN Member Role: Primary Care Nurse Name: Omkar Mclean MD Position: [facility] ED Medicine MD Member Role: Admitting Physician Address: Address: [address] [place] [id number]- Name: Omkar Ramos Position: [facility] ED TA [facility] Member Role: Licensing Manager Name: Juan Torres DO Position: [facility] Resident Member Role: ED Resident Address: Address: [address] [place] [address]- Name: Yuliya Keith RN Position: [facility] ED RN W/OE and Tasks Member Role: Patient Care Provider Care Team Related Persons Name: MICKY ROSE Name: MADELEINE DAWN Address: home [address] [place] [address] Name: [facility] Address: home [address] [place] [address] Name: SANA VASQUEZ Address: home [address] [place] [address]
--- OUTSIDE RECORDS SUMMARY | 2024-01-15 09:01 | XMS_ITS | Continuity of Care Document ---
Author Organization [facility] Address [address] [place] [id number]- Care Team Providers Care Rigging Helper Name Role Phone Sara TRUJILLO, Cm Kunz Primary Care Physician [place] [facility] [place]16[place]22 - 03/18/22 [facility] [address] [place], [place] [address] Allergies, Adverse Reactions, Alerts Substance Reaction Severity [...] Refills, Maintenance, 11/05/21 10:19:00 EDT, CR Tablet, [facility]acy #[id number], Partial fill upon patient request if the prescription is for a schedule II opioid drug., 175, cm, 10/29/21 14:02:00 EDT, Heig... Start Date: 11/05/21 Status: Ordered prochlorperazine 5 mg oral tablet 1 tablet = 5 mg, By Mouth, 3 times a day, PRN Nausea Start Date: 02/22/21 Status: Ordered Secur-t 12?? Drainable Standard Wear Transparent #[id number] Secur-t 12?? Drainable Standard Wear Transparent #[id number], See Instructions, # 20 each, Refills 11, [...] 0 Refills, Maintenance, 07/15/21 9:58:00 EST, Capsule, [facility], Partial fill upon patient request if the prescription is for a schedule II opioid drug., 1 capsule By Mouth Daily,x30 days, 175,... Start Date: 07/15/21 Stop Date: 08/14/21 Status: Ordered Problem List Condition Confirmation Course Effective Dates Status [facility] Anoxic brain injury Confirmed Active Hemorrhagic shock Confirmed Active Bladder injury Confirmed Active Neurogenic bladder disorder Confirmed Active TMJ dysfunction Confirmed Active Social History Social History Type Response Smoking Status Current some day smo ker entered on: 02/04/15 Sex Patient Care team information Personnel Name: Sara TRUJILLO, Cm Kunz Address: Address: [address] [place] [id number]
--- OUTSIDE RECORDS SUMMARY | 2024-01-15 09:01 | XMS_ITS | Continuity of Care Document ---
Author Organization [facility] ter Address [address] [place] [address]- Care Team Providers Care Mobile Equipment Servicer Name Role Phone Not on Staff, PCP Primary Care Physician Unavail able [place] [facility] [place] 12/27/19 - 12/29/[address] [address]- [facility] Encounter Diagnosis Dysuria(Final) - 12/26/19 Acute UTI(Discharge Diagnosis) - 12/29/19 Discharge Disposition: A-D/C Home Attending Physician: Shaylee Delgado MD Admitting Physician: Guille Edge MD Referring Physician: Not on Staff, Referring [...] 02/06/15 11:41:47 Start Date: 02/06/15 Status: Ordered Bactrim DS 800 mg-160 mg oral tablet 1 tablet, By Mouth, Every 12 hours, for 5 days, # 10 tablet, 0 Refills, Acute 01/03/20 14:37:00 EDT, 12/29/19 14:37:00 EDT, Tablet, [id number], 1 tablet By Mouth Every 12 hours,x5 days, 175, cm, 12/29/19 5:09:00 EDT, Height, 55, kg, 0... Start Date: 12/29/19 Stop Date: 01/03/20 Status: Ordered Colace sodium 100 mg oral [...] mL, 0 Refills, Maintenance, 06/04/1910:46:00 EST, Syrup, [facility], 30 mL By Mouth 3 times a day,PRN:Constipation, 175, cm, 06/03/19 20:50:00 EST, Height, 49.3, kg, ... Start Date: 06/04/19 Status: Ordered Lexapro 10 mg oral tablet 1 tablet = 10 mg, By Mouth, Daily in AM, # 30 tablet, 0 Refills, Maintenance, 06/16/19 9:33:00 EST,Tablet, [id number], 176, cm, 06/16/19 6:59:00 EST, Height, 49, kg, 06/14/19 16:20:00 EST, Dry Weight Start Date: 06/16/19 Status: Ordered metoclopramide 10 mg oral tablet 1 tablet = 10 mg, By Mouth, 3 times a day before meals and bedtime, # 30 tablet, 0 Refills, Maintenance, 06/04/19 10:47:00 EST, Tablet, [facility], 175, cm, 06/03/19 20:50:00 EST, Height, 49.3, kg, 05/31/19 23:20:00 EST, Dry Weight Start Date: 06/04/19 Status: Ordered MiraLax oral powder for reconstitution = 17 Gm, By Mouth, Daily, dissolve in water before taking, # 255 Gm, 0 Refills, Maintenance, 06/04/19 11:10:00 EST, REC Powder, [facility], 17 Gm By Mouth Daily,Instr:dissolve in water before taking, 175, cm, 06/03/19 20:50:00 EST, Heigh... Start Date: 06/04/19 Status: Ordered Neurontin 300 mg oral capsule 600 mg, 2, capsule, By Mouth, 3 times a day, # 180 capsule, Refills 0, Tot. Refills 0, Maintenance,06/04/19 10:45:00 EST, Route to Pharmacy Electronically, [facility], 175, cm, 06/03/19 20:50:00 EST, Height, 49.3, kg, 05/31/19 23:20:00... Start Date: 06/04/19 Status: Ordered nicotine 2 mg oral transmucosal gum = 2 mg, Chew, Every hour, PRN Other, Nicotine Withdrawal Symptoms (NOT to exceed 24 pieces per day), # 10 each, 0 Refills, Maintenance, 06/04/19 10:28:00 EST, Gum Start Date: 06/04/19 Status: Ordered Senna By Mouth, 0 Refills, Maintenance, 05/28/19 23:46:00 EST Start Date: 05/28/19 Status: Ordered Zofran 4 mg oral tablet 1 tablet = 4 mg, By Mouth, Every 8 hours, PRN Nausea & Vomiting, # 15 tablet, 0 Refills, Maintenance, 06/16/19 11:41:00 EST, Tablet, [facility], 176, cm, 06/16/19 6:59:00 EST, Height, 49, kg, 06/14/19 16:20:00 EST, Dry Weight Start Date: 06/16/19 Stop Date: 06/21/19 Status: Ordered Problem List Condition Effective Dates Status Health Status Inform ant Hemorrhagic shock(Confirmed) Active Bladder injury(Confirmed) Active Diagnosis Diagnosis Type Effective Dates Health Status [facility] Informant Acute UTI Discharge Diagnosis 12/29/19 Non-Specified Results Orders for Microbiology Reports Name Date Urine Culture (URINE CULTURE) 12/26/19 Microbiology Reports TEST:Urine Culture STATUS:Auth (Verified) BODY SITE: SOURCE:URINE COLLECTED DATE/TIME:12/26/19 9:49 PM Urine Culture SPECIMEN DESCRIPTION : URINE SPECIAL REQUESTS : NONE CULTURE : >100,000 COL/ML CITROBACTER (DIVERSUS) KOSERI >100,000 COL/ML KLEBSIELLA OXYTOCA REPORT STATUS : FINAL 12/29/2019 ORGANISM >100,000 COL/ML CITROBACTER (DIVERSUS) KOSERI METHOD MIN. INHIB. CONC. (MCG/ML) AMPICILLIN RESISTANT AMPICILLIN/SULBACTAM SUSCEPTIBLE AMOXICILLIN/CLAVULAN SUSCEPTIBLE CEFAZOLIN SUSCEPTIBLE CEFEPIME SUSCEPTIBLE CEFTRIAXONE SUSCEPTIBLE CIPROFLOXACIN SUSCEPTIBLE ERTAPENEM SUSCEPTIBLE GENTAMICIN SUSCEPTIBLE LEVOFLOXACIN SUSCEPTIBLE MEROPENEM SUSCEPTIBLE NITROFURANTOIN SUSCEPTIBLE PIPERACILLIN/TAZOBAC SUSCEPTIBLE TRIMETH/SULFAMETHOX SUSCEPTIBLE TETRACYCLINE SUSCEPTIBLE ORGANISM >100,000 COL/ML KLEBSIELLA OXYTOCA METHOD MIN. INHIB. CONC. (MCG/ML) AMPICILLIN RESISTANT AMPICILLIN/SULBACTAM SUSCEPTIBLE AMOXICILLIN/CLAVULAN SUSCEPTIBLE CEFAZOLIN RESISTANT CEFEPIME SUSCEPTIBLE CEFTRIAXONE SUSCEPTIBLE CIPROFLOXACIN SUSCEPTIBLE ERTAPENEM SUSCEPTIBLE GENTAMICIN SUSCEPTIBLE LEVOFLOXACIN SUSCEPTIBLE MEROPENEM SUSCEPTIBLE NITROFURANTOIN SUSCEPTIBLE PIPERACILLIN/TAZOBAC SUSCEPTIBLE TRIMETH/SULFAMETHOX SUSCEPTIBLE TETRACYCLINE SUSCEPTIBLE Vital Signs Most recent to oldest [Reference Range]: 1 2 3 Height 175 cm (12/29/19 5:09 AM) 175 cm (12/28/19 8:51 PM) 175 cm (12/28/19 4:42 AM) Weight 55 kg (12/27/19 1:08 PM) Oxygen Saturation [94-100 %] 100 % (12/29/19 5:09 AM) 100 % (12/28/19 8:51 PM) 100 % (12/28/19 12:00 PM) Pulse Rate [55-90 bpm] 105 bpm *H* (12/29/19 5:09 AM) 99 bpm *H* (12/28/19 8:51 PM) 100 bpm *H* (12/28/19 12:00 PM) Body Mass Index [18.5-24.99] 17.96 *L* (12/27/19 1:08 PM) Blood Pressure [90-138/55-84 mm Hg] 163/93mm Hg *H* (12/29/19 5:09 AM) 152/88mm Hg *H* (12/28/19 8:51 PM) 169/70mm Hg *H* (12/28/19 12:00 PM) Respiratory Rate [16-30 br/min] 17 br/min (12/29/19 10:48 AM) 17 br/min (12/29/19 10:18 AM) 16 br/min (12/29/19 6:43 AM) Temperature [96.8-100.4 DegF] 96.9 DegF (12/29/19 5:09 AM) 97.2 DegF (12/28/19 8:51 PM) 98.0 DegF (12/28/19 12:00 PM) Mode of Delivery (Oxygen) Room air (12/29/19 5:09 AM) Room air (12/28/19 8:51 PM) Room air (12/28/19 12:00 PM) Blood pressure sites Arm, left (12/29/19 5:09 AM) Arm, left (12/28/19 8:51 PM) Arm, right (12/28/19 12:00 PM) Temperature Route Axillary (12/29/19 5:09 AM) Axillary (12/28/19 8:51 PM) Oral (12/28/19 12:00 PM) Dry Weight 55 kg (12/27/19 1:08 PM) Social History Social History Type Response Smoking Status Current some day smo ker entered on: 02/04/15 Sex
--- OUTSIDE RECORDS SUMMARY | 2024-01-15 09:01 | XMS_ITS | Continuity of Care Document ---
Author Organization [facility] Address [address] [place] [address]- Care Team Providers Care Autocutter Name Role Phone Not on Staff, PCP Primary Care Physician Unavail able [place] [facility] [place] 03[place] [facility] [address] [place] [address]- Attending Physician: Alexander Jama Admitting Physician: Alexander [...]
--- OUTSIDE RECORDS SUMMARY | 2024-01-15 09:01 | XMS_ITS | Continuity of Care Document ---
Author Organization [facility] ter Address [address] [place] [id number]- Care Team Providers Care Family Support Worker Name Role Phone Not on Staff, PCP Primary Care Physician Unavail able Encounter [facility] [place] Date(s): 08/14/20 - 08/14/[address] [address]- Discharge Disposition: A-Error Chart/Home (ED Only) Attending Physician: Not on Staff, Attending MD [...] mL, 0 Refills, Maintenance, 06/04/1910:46:00 EST, Syrup, [facility], 30 mL By Mouth 3 times a day,PRN:Constipation, 175, cm, 06/03/19 20:50:00 EST, Height, 49.3, kg, ... Start Date: 06/04/19 Status: Ordered Lexapro 10 mg oral tablet 1 tablet = 10 mg, By Mouth, Daily in AM, # 30 tablet, 0 Refills, Maintenance, 06/16/19 9:33:00 EST,Tablet, [id number], 176, cm, 06/16/19 6:59:00 EST, Height, 49, kg, 06/14/19 16:20:00 EST, Dry Weight Start Date: 06/16/19 Status: Ordered MiraLax oral powder for reconstitution = 17 Gm, By Mouth, Daily, dissolve in water before taking, # 255 Gm, 0 Refills, Maintenance, 06/04/19 11:10:00 EST, REC Powder, [facility], 17 Gm By Mouth Daily,Instr:dissolve in water before taking, 175, cm, 06/03/19 20:50:00 EST, Heigh... Start Date: 06/04/19 Status: Ordered Neurontin 300 mg oral capsule 300 mg, 1, capsule, By Mouth, 3 times a day, # 180 capsule, Refills 0, Tot. Refills 0, Maintenance,06/04/19 10:45:00 EST, Route to Pharmacy Electronically, [facility], 175, cm, 06/03/19 [...] 0 Refills,Maintenance, 05/18/20 23:27:00 EST, DIS Tablet, [facility] #[id number], Partial fill upon patient request if the prescription is for a schedule II... Start Date: 05/18/20 Stop Date: 05/21/20 Status: Ordered ondansetron 4 mg oral tablet, disintegrating 1 tablet = 4 mg, By Mouth, Every 8 hours, PRN as needed for nausea/vomiting, # 10 tablet, 0 Refills, Maintenance, 06/14/20 0:24:00 EST, DIS Tablet, [facility]/pharmacy #[id number], Partial fill upon patient [...] 0 Refills, Maintenance, 06/16/19 11:41:00 EST, Tablet, [facility], 176, cm, 06/16/19 6:59:00 EST, Height, 49, kg, 06/14/19 16:20:00 EST, Dry Weight Start Date: 06/16/19 Stop Date: 06/21/19 Status: Ordered Zofran 4 mg oral tablet 1 tablet = 4 mg, By Mouth, Every 8 hours, PRN as needed for nausea/vomiting, # 9 tablet, 0 Refills,Maintenance, 07/10/20 20:03:00 EST, Tablet, [facility]/pharmacy #[id number], Partial fill upon patient request if the prescription is for a schedule II opioid drug.... Start Date: 07/10/20 Status: Ordered Problem List Condition Effective Dates Status Health Status Inform ant Hemorrhagic shock(Confirmed) Active Bladder injury(Confirmed) Active Social History Social History Type Response Smoking Status Current some day smo ker entered on: 02/04/15 Sex
--- OUTSIDE RECORDS SUMMARY | 2024-01-15 09:01 | XMS_ITS | Continuity of Care Document ---
Author Organization [facility] Address [address] [place] [address]- Care Team Providers Care Wet And Dry Sugar Bin Operator Name Role Phone Sara TRUJILLO, Cm Kunz Primary Care Physician [place] [facility] [place]22 [facility] [address] [place], [place] [address] Attending Physician: Alexander Jama Admitting Physician: AdmtrAlexander Referring Physician: Admtr, Ar8 Allergies, Adverse Reactions, Alerts Substance Reaction Severity [...] Refills, Maintenance, 11/05/21 10:19:00 EDT, CR Tablet, [facility]/pharmacy #[id number], Partial fill upon patient request if the prescription is for a schedule II opioid drug., 175, cm, 10/29/21 14:02:00 EDT, Heig... Start Date: 11/05/21 Status: Ordered prochlorperazine 5 mg oral tablet 1 tablet = 5 mg, By Mouth, 3 times a day, PRN Nausea Start Date: 02/22/21 Status: Ordered Right Leg Above Knee Prothetic Right Leg Above Knee Prothetic, See Instructions, # 1 each, Refills 1, Tot. Refills 1, Maintenance,DX: Right Leg Above knee amputation,Z89. 611,K2 wt-58KG ht-175cm, 04/04/22 8:25:00 EDT, Supply Start Date: 04/04/22 Status: Ordered Secur-t 12?? Drainable Standard Wear Transparent #[id number] Secur-t 12?? Drainable Standard Wear Transparent #[id number], See Instructions, # 20 each, Refills 11, [...] 0 Refills, Maintenance, 07/15/21 9:58:00 EST, Capsule, [facility], Partial fill upon patient request if the prescription is for a schedule II opioid drug., 1 capsule By Mouth Daily,x30 days, 175,... Start Date: 07/15/21 Stop Date: 08/14/21 Status: Ordered Problem List Condition Confirmation Course Effective Dates Status Health St atus Informant Anoxic brain injury Confirmed Active Hemorrhagic shock Confirmed Active Bladder injury Confirmed Active Neurogenic bladder disorder Confirmed Active TMJ dysfunction Confirmed Active Social History Social History Type Response Smoking Status Current some day smo ker entered on: 02/04/15 Sex Patient Care team information Care Team Personnel Name: Ashley Lewis RN Position: [facility] RN Member Role: Primary Care Nurse Name: Karl Church RN Position: [facility] RN Member Role: Primary Care Nurse Name: Jay Bush RN Position: [facility] ED RN W/OE and Tasks Member Role: Primary Care Nurse Name: Reanna Davies RN Position: [facility] PCO RN Member Role: Primary Care Nurse Name: Kita Mahajan RN Position: [facility] RN Member Role: Primary Care Nurse Name: Michelle Miller RN Position: [facility] RN Member Role: Primary Care Nurse Name: Shoshana Vasquez RN Position: [facility] RN Member Role: Primary Care Nurse Name: Antelmo Johnson RN Position: [facility] RN Member Role: Primary Care Nurse Name: Poonam Sanchez RN Position: [facility] RN Member Role: Primary Care Nurse Name: Jonas Hampton RN Position: [facility] RN Member Role: Primary Care Nurse Name: TIFFANY PELAYO RN Position: [facility] RN Member Role: Primary Care Nurse Name: Arlet Ferraro RN Position: [facility] RN Member Role: Primary Care Nurse Name: Sobeida Lomeli RN Position: [facility] RN Member Role: Primary Care Nurse Name: Stella Macias RN Position: [facility] HBO Wound Member Role: Primary Care Nurse Name: Sobeida Dickson RN Position: [facility] RN Member Role: Primary Care Nurse Name: Juan J Hinojosa RN Position: [facility] RN Member Role: Primary Care Nurse Name: Cm Ruiz MD Position: Reference Physician Member Role: PCP Address: Address: [address] [place] [address] Name: Esther Simmons Position: [facility] RN Member Role: Primary Care Nurse Name: Deepti Brown RN Position: [facility] RN Member Role: Primary Care Nurse Name: Carmelina Horta RN Position: [facility] RN Member Role: Primary Care Nurse Name: Sabrina Lobato RN Position: [facility] RN Member Role: Primary Care Nurse Name: Mari Lira RN Position: [facility] RN Supv Member Role: Primary Care Nurse Name: Kvng Millard RN Position: [facility] ED RN W/OE and Tasks Member Role: Primary Care Nurse Name: Sho Vasquez RN Position: [facility] AMB Nurse Member Role: Primary Care Nurse Name: Alex Marmolejo RN Position: [facility] RN Member Role: Primary Care Nurse Name: Chantal Quezada Position: [facility] Outreach Member Role: Lifetime Consulting Physician Name: Angie Barry RN Position: [facility] RN Member Role: Primary Care Nurse Name: Tiffany Soto RN Position: [facility] RN Member Role: Primary Care Nurse Name: Rik Titus MD Position: [facility] Renal MD Member Role: Lifetime Consulting Physician Address: Address: [address] [place] [address] [facility] [address] Name: Sobeida Juarez RN Position: [facility] SN RN Member Role: Primary Care Nurse Name: Agnes Sam RN Position: [facility] RN Member Role: Primary Care Nurse Name: Arlet Campos RN Position: [facility] RN Member Role: Primary Care Nurse Name: Nusrat Salguero RN Position: [facility] Onco RN Member Role: Primary Care Nurse Care Team Related Persons Name: MICKY ROSE Name: MADELEINE DAWN Address: home [address] [place] [address] Name: [facility] Address: home [address] [place] [address] Name: SANA VASQUEZ Address: home [address] [place] [address]
--- OUTSIDE RECORDS SUMMARY | 2024-01-15 09:01 | XMS_ITS | Continuity of Care Document ---
Author Organization [facility] ter Address [address] [place] [address]- Care Team Providers Care Science Editor Name Role Phone Sara TRUJILLO, Cm Kunz Primary Care Physician [place] [facility] [place] - 02/08/[address] [address]- Attending Physician: Osei Ahuja MD Referring Physician: Osei [...] Refills, Maintenance, 11/05/21 10:19:00 EDT, CR Tablet, [facility]/pharmacy #[id number], Partial fill upon patient request if the prescription is for a schedule II opioid drug., 175, cm, 10/29/21 14:02:00 EDT, Heig... Start Date: 11/05/21 Status: Ordered prochlorperazine 5 mg oral tablet 1 tablet = 5 mg, By Mouth, 3 times a day, PRN Nausea Start Date: 02/22/21 Status: Ordered Secur-t 12?? Drainable Standard Wear Transparent #[id number] Secur-t 12?? Drainable Standard Wear Transparent #[id number], See Instructions, # 20 each, Refills 11, [...] Refills, Maintenance, 07/15/21 9:58:00 EST, Capsule, [facility], Partial fill upon patient [...] on: 02/04/15 Sex Care Team Personnel Name: Cm Ruiz MD Address: [address] [place] [address]
--- OUTSIDE RECORDS SUMMARY | 2024-01-15 09:01 | XMS_ITS | Continuity of Care Document ---
Author Organization [facility] ter Address [address] [place] [address]- Care Team Providers Care Mobile Health Vehicle Operator Name Role Phone Not on Staff, PCP Primary Care Physician Unavail able [place] [facility] [place]18/20 - 02/19/[address] [address]- [facility] Encounter Diagnosis UTI (urinary tract infection), bacterial(Final) - 02/18/20 Acute UTI(Final) - 02/19/20 Discharge Disposition: A-D/C AMA Attending Physician: Xiomy Sinclair MD Admitting Physician: Martin Howe MD Referring Physician: Not on Staff, Referring [...] Date: 02/04/15 Stop Date: 02/14/15 Status: Ordered duloxetine 30 mg oral enteric coated capsule 1 capsule = 30 mg, By Mouth, Daily, do not crush or chew, 0 Refills, Maintenance, 02/19/20 9:56:00 EDT, CR Capsule Start Date: 02/19/20 Status: Ordered lactulose 10 gm/15 ml oral syrup 30 mL = 20 Gm, By Mouth, 3 times a day, PRN Constipation, # 30 mL, 0 Refills, Maintenance, 06/04/1910:46:00 EST, Syrup, [facility], 30 mL By Mouth 3 times a day,PRN:Constipation, 175, cm, 06/03/19 20:50:00 EST, Height, 49.3, kg, ... Start Date: 06/04/19 Status: Ordered Lexapro 10 mg oral tablet 1 tablet = 10 mg, By Mouth, Daily in AM, # 30 tablet, 0 Refills, Maintenance, 06/16/19 9:33:00 EST,Tablet, [facility][id number], 176, cm, 06/16/19 6:59:00 EST, Height, 49, kg, 06/14/19 16:20:00 EST, Dry Weight Start Date: 06/16/19 Status: Ordered metoclopramide 10 mg oral tablet 1 tablet = 10 mg, By Mouth, 3 times a day before meals and bedtime, # 30 tablet, 0 Refills, Maintenance, 06/04/19 10:47:00 EST, Tablet, [facility], 175, cm, 06/03/19 20:50:00 EST, Height, 49.3, kg, 05/31/19 23:20:00 EST, Dry Weight Start Date: 06/04/19 Status: Ordered MiraLax oral powder for reconstitution = 17 Gm, By Mouth, Daily, dissolve in water before taking, # 255 Gm, 0 Refills, Maintenance, 06/04/19 11:10:00 EST, REC Powder, [facility], 17 Gm By Mouth Daily,Instr:dissolve in water before taking, 175, cm, 06/03/19 20:50:00 EST, Heigh... Start Date: 06/04/19 Status: Ordered Neurontin 300 mg oral capsule 300 mg, 1, capsule, By Mouth, 3 times a day, # 180 capsule, Refills 0, Tot. Refills 0, Maintenance,06/04/19 10:45:00 EST, Route to Pharmacy Electronically, [facility], 175, cm, 06/03/19 20:50:00 EST, Height, 49.3, kg, 05/31/19 23:20:00... Start Date: 06/04/19 Status: Ordered nicotine 2 mg oral transmucosal gum = 2 mg, Chew, Every hour, PRN Other, Nicotine Withdrawal Symptoms (NOT to exceed 24 pieces per day), # 10 each, 0 Refills, Maintenance, 06/04/19 10:28:00 EST, Gum Start Date: 06/04/19 Status: Ordered oxyCODONE 10 mg oral tablet [...] 0 Refills, Maintenance, 06/16/19 11:41:00 EST, Tablet, [facility], 176, cm, 06/16/19 6:59:00 EST, Height, 49, kg, 06/14/19 16:20:00 EST, Dry Weight Start Date: 06/16/19 Stop Date: 06/21/19 Status: Ordered Problem List Condition Effective Dates Status Health Status Inform ant Hemorrhagic shock(Confirmed) Active Bladder injury(Confirmed) Active Results Orders for Microbiology Reports Name Date Urine Culture (URINE CULTURE) 02/18/20 Microbiology Reports TEST:Urine Culture STATUS:Auth (Verified) BODY SITE: SOURCE:URINE COLLECTED DATE/TIME:02/18/20 6:15 PM Urine Culture SPECIMEN DESCRIPTION : URINE SPECIAL REQUESTS : NONE CULTURE : Mixed bacterial bertrand, indicative of urogenital contamination. REPORT STATUS : FINAL 02/19/2020 Vital Signs Most recent to oldest [Reference Range]: 1 2 3 Oxygen Saturation [94-100 %] 100 % (02/19/20 8:37 AM) 100 % (02/19/20 1:23 AM) 100 % (02/18/20 1:17 PM) Pulse Rate [55-90 bpm] 81 bpm (02/19/20 11:27 AM) 96 bpm *H* (02/19/20 8:37 AM) 90 bpm (02/19/20 1:23 AM) Blood Pressure [90-138/55-84 mm Hg] 146/88mm Hg *H* (02/19/20 11:27 AM) 120/88mm Hg (02/19/20 8:37 AM) 146/99mm Hg *H* (02/19/20 1:23 AM) Respiratory Rate [16-30 br/min] 20 br/min (02/19/20 12:43 PM) 17 br/min (02/19/20 11:27 AM) 20 br/min (02/19/20 8:50 AM) Temperature [96.8-100.4 DegF] 98.2 DegF (02/19/20 8:37 AM) 97.8 DegF (02/19/20 1:23 AM) 98.5 DegF (02/18/20 1:17 PM) Liters per Minute 0 L/min (02/18/20 1:17 PM) Mode of Delivery (Oxygen) Room air (02/19/20 11:27 AM) Room air (02/19/20 8:37 AM) Room air (02/19/20 1:23 AM) Blood pressure sites Arm, right (02/19/20 11:27 AM) Arm, right (02/19/20 8:37 AM) Arm, right (02/18/20 1:17 PM) Temperature Route Oral (02/19/20 8:37 AM) Oral (02/19/20 1:23 AM) Oral (02/18/20 1:17 PM) Social History Social History Type Response Smoking Status Current some day smo ker entered on: 02/04/15 Sex
--- OUTSIDE RECORDS SUMMARY | 2024-01-15 09:01 | XMS_ITS | Continuity of Care Document ---
Author Organization [facility] Address [address] [place] [address]- Care Team Providers Care Cant Gang Sawyer Name Role Phone Cm Ruiz MD Primary Care Physician [place] [facility] [place] 03/18/22 [facility] [address] [place], [place] [address] Attending Physician: Osei Ahuja MD Admitting Physician: Osei Ahuja MD Referring Physician: Cm Ruiz MD Allergies, Adverse Reactions, Alerts Substance Reaction [...] Refills, Maintenance, 11/05/21 10:19:00 EDT, CR Tablet, [facility]/pharmacy #[id number], Partial fill upon patient request if the prescription is for a schedule II opioid drug., 175, cm, 10/29/21 14:02:00 EDT, Heig... Start Date: 11/05/21 Status: Ordered prochlorperazine 5 mg oral tablet 1 tablet = 5 mg, By Mouth, 3 times a day, PRN Nausea Start Date: 02/22/21 Status: Ordered Secur-t 12?? Drainable Standard Wear Transparent #[id number] Secur-t 12?? Drainable Standard Wear Transparent #[id number], See Instructions, # 20 each, Refills 11, [...] 0 Refills, Maintenance, 07/15/21 9:58:00 EST, Capsule, [facility], Partial fill upon patient [...] Name: Sara TRUJILLO, Cm Kunz Address: Address: [address] [place] [address]
--- OUTSIDE RECORDS SUMMARY | 2024-01-15 09:01 | XMS_ITS | Continuity of Care Document ---
Author Organization [facility] ter Address [address] [place] [address]- Care Team Providers Care Geoduck Diver Name Role Phone Sara TRUJILLO, Cm Kunz Primary Care Physician [place] [facility] [place] - 12/26/[address] [address]- Attending Physician: Miguelito Rogers MD Admitting Physician: Miguelito Rogers MD Referring Physician: Miguelito Rogers MD Allergies, Adverse Reactions, Alerts Substance Reaction [...] Refills, Maintenance, 11/05/21 10:19:00 EDT, CR Tablet, [facility]/pharmacy #[id number], Partial fill upon patient request if the prescription is for a schedule II opioid drug., 175, cm, 10/29/21 14:02:00 EDT, Heig... Start Date: 11/05/21 Status: Ordered prochlorperazine 5 mg oral tablet 1 tablet = 5 mg, By Mouth, 3 times a day, PRN Nausea Start Date: 02/22/21 Status: Ordered Secur-t 12?? Drainable Standard Wear Transparent #[id number] Secur-t 12?? Drainable Standard Wear Transparent #[id number], See Instructions, # 20 each, Refills 11, [...] 0 Refills, Maintenance, 07/15/21 9:58:00 EST, Capsule, [facility], Partial fill upon patient request if the prescription is for a schedule II opioid drug., 1 capsule By Mouth Daily,x30 days, 175,... Start Date: 07/15/21 Stop Date: 08/14/21 Status: Ordered Problem List Condition Effective Dates Status Health Status Inform ant Anoxic brain injury(Confirmed) Active Hemorrhagic shock(Confirmed) Active Bladder injury(Confirmed) Active Neurogenic bladder disorder(Confirmed) Active TMJ dysfunction(Confirmed) Active Underweight(Confirmed) Active Social History Social History Type Response Smoking Status Current some day smo ker entered on: 02/04/15 Sex
--- OUTSIDE RECORDS SUMMARY | 2024-01-15 09:01 | XMS_ITS | Continuity of Care Document ---
Author Organization [facility] ter Address [address] [place] [address]- Care Team Providers Care Lining Ironer Name Role Phone Not on Staff, PCP Primary Care Physician Unavail able Encounter [facility] [place] Date(s): 11/20/20 - 11/20/[address] [address]- Discharge Disposition: A-D/C Walkout Attending Physician: Bk Fowler MD Admitting Physician: Bk Fowler MD Referring Physician: Not on Staff, Referring [...] mL, 0 Refills, Maintenance, 06/04/1910:46:00 EST, Syrup, [facility], 30 mL By Mouth 3 times a day,PRN:Constipation, 175, cm, 06/03/19 20:50:00 EST, Height, 49.3, kg, ... Start Date: 06/04/19 Status: Ordered Lexapro 10 mg oral tablet 1 tablet = 10 mg, By Mouth, Daily in AM, # 30 tablet, 0 Refills, Maintenance, 06/16/19 9:33:00 EST,Tablet, [id number], 176, cm, 06/16/19 6:59:00 EST, Height, 49, kg, 06/14/19 16:20:00 EST, Dry Weight Start Date: 06/16/19 Status: Ordered MiraLax oral powder for reconstitution = 17 Gm, By Mouth, Daily, dissolve in water before taking, # 255 Gm, 0 Refills, Maintenance, 06/04/19 11:10:00 EST, REC Powder, [facility], 17 Gm By Mouth Daily,Instr:dissolve in water before taking, 175, cm, 06/03/19 20:50:00 EST, Heigh... Start Date: 06/04/19 Status: Ordered Neurontin 300 mg oral capsule 300 mg, 1, capsule, By Mouth, 3 times a day, # 180 capsule, Refills 0, Tot. Refills 0, Maintenance,06/04/19 10:45:00 EST, Route to Pharmacy Electronically, [facility], 175, cm, 06/03/19 20:50:00 EST, [...] Refills, Maintenance, 08/15/20 5:41:00 EST, DIS Tablet, [facility]/pharmacy #[id number], Partial fill upon patient request if the prescription is for a schedule II opioid d... Start Date: 08/15/20 Status: Ordered ondansetron 4 mg oral tablet, disintegrating 1 tablet = 4 mg, By Mouth, Every 8 hours, PRN as needed for nausea/vomiting, # 9 tablet, 0 Refills,Maintenance, 05/18/20 23:27:00 EST, DIS Tablet, [id number], Partial fill upon patient request if the prescription is for a schedule II... Start Date: 05/18/20 Stop Date: 05/21/20 Status: Ordered ondansetron 4 mg oral tablet, disintegrating 1 tablet = 4 mg, By Mouth, Every 8 hours, PRN as needed for nausea/vomiting, # 10 tablet, 0 Refills, Maintenance, 06/14/20 0:24:00 EST, DIS Tablet, [facility]/pharmacy #[id number], Partial fill upon patient request [...] 0 Refills, Maintenance, 06/16/19 11:41:00 EST, Tablet, [facility], 176, cm, 06/16/19 6:59:00 EST, Height, 49, kg, 06/14/19 16:20:00 EST, Dry Weight Start Date: 06/16/19 Stop Date: 06/21/19 Status: Ordered Zofran 4 mg oral tablet 1 tablet = 4 mg, By Mouth, Every 8 hours, PRN as needed for nausea/vomiting, # 9 tablet, 0 Refills,Maintenance, 07/10/20 20:03:00 EST, Tablet, [facility]/pharmacy #[id number], Partial fill upon patient request if the prescription is for a schedule II opioid drug.... Start Date: 07/10/20 Status: Ordered Problem List Condition Effective Dates Status Health Status Inform ant Hemorrhagic shock(Confirmed) Active Bladder injury(Confirmed) Active Social History Social History Type Response Smoking Status Current some day smo dami entered on: 02/04/15 Sex
--- OUTSIDE RECORDS SUMMARY | 2024-01-15 09:01 | XMS_ITS | Continuity of Care Document ---
Author Organization [facility] Address [address] [place] [address]- Care Team Providers Care General Cargo Clerk Name Role Phone Not on Staff, PCP Primary Care Physician Unavail able Encounter [facility] Date(s): 08/24/20 - 10/21/[address] [address]- Attending Physician: Eloina Matos MD Admitting Physician: Eloina Matos MD Allergies, Adverse Reactions, Alerts Substance Reaction [...] mL, 0 Refills, Maintenance, 06/04/1910:46:00 EST, Syrup, [facility], 30 mL By Mouth 3 times a day,PRN:Constipation, 175, cm, 06/03/19 20:50:00 EST, Height, 49.3, kg, ... Start Date: 06/04/19 Status: Ordered Lexapro 10 mg oral tablet 1 tablet = 10 mg, By Mouth, Daily in AM, # 30 tablet, 0 Refills, Maintenance, 06/16/19 9:33:00 EST,Tablet, [facility][id number], 176, cm, 06/16/19 6:59:00 EST, Height, 49, kg, 06/14/19 16:20:00 EST, Dry Weight Start Date: 06/16/19 Status: Ordered MiraLax oral powder for reconstitution = 17 Gm, By Mouth, Daily, dissolve in water before taking, # 255 Gm, 0 Refills, Maintenance, 06/04/19 11:10:00 EST, REC Powder, [facility], 17 Gm By Mouth Daily,Instr:dissolve in water before taking, 175, cm, 06/03/19 20:50:00 EST, Heigh... Start Date: 06/04/19 Status: Ordered Neurontin 300 mg oral capsule 300 mg, 1, capsule, By Mouth, 3 times a day, # 180 capsule, Refills 0, Tot. Refills 0, Maintenance,06/04/19 10:45:00 EST, Route to Pharmacy Electronically, [facility], 175, cm, 06/03/19 20:50:00 [...] Refills, Maintenance, 08/15/20 5:41:00 EST, DIS Tablet, [facility] #[id number], Partial fill upon patient request if the prescription is for a schedule II opioid d... Start Date: 08/15/20 Status: Ordered ondansetron 4 mg oral tablet, disintegrating 1 tablet = 4 mg, By Mouth, Every 8 hours, PRN as needed for nausea/vomiting, # 9 tablet, 0 Refills,Maintenance, 05/18/20 23:27:00 EST, DIS Tablet, [facility] #[id number], Partial fill upon patient request if the prescription is for a schedule II... Start Date: 05/18/20 Stop Date: 05/21/20 Status: Ordered ondansetron 4 mg oral tablet, disintegrating 1 tablet = 4 mg, By Mouth, Every 8 hours, PRN as needed for nausea/vomiting, # 10 tablet, 0 Refills, Maintenance, 06/14/20 0:24:00 EST, DIS Tablet, [facility]/pharmacy #[id number], Partial fill upon patient request if [...] 0 Refills, Maintenance, 06/16/19 11:41:00 EST, Tablet, [facility], 176, cm, 06/16/19 6:59:00 EST, Height, 49, kg, 06/14/19 16:20:00 EST, Dry Weight Start Date: 06/16/19 Stop Date: 06/21/19 Status: Ordered Zofran 4 mg oral tablet 1 tablet = 4 mg, By Mouth, Every 8 hours, PRN as needed for nausea/vomiting, # 9 tablet, 0 Refills,Maintenance, 07/10/20 20:03:00 EST, Tablet, [facility]/pharmacy #[id number], Partial fill upon patient request if the prescription is for a schedule II opioid drug.... Start Date: 07/10/20 Status: Ordered Problem List Condition Effective Dates Status Health Status Inform ant Hemorrhagic shock(Confirmed) Active Bladder injury(Confirmed) Active Social History Social History Type Response Smoking Status Current some day jules lomax entered on: 02/04/15 Sex
--- OUTSIDE RECORDS SUMMARY | 2024-01-15 09:01 | XMS_ITS | Continuity of Care Document ---
Author Organization [facility] Address [address] [place] [address]- Care Team Providers Care Toddler Teacher Name Role Phone Cm Ruiz MD Primary Care Physician [place] [facility] [place]03[place]22 - 03/10/22 [facility] [address] [place], [place] [address] Attending Physician: Osei Ahuja MD [...] Refills, Maintenance, 11/05/21 10:19:00 EDT, CR Tablet, [facility]/pharmacy #[id number], Partial fill upon patient request if the prescription is for a schedule II opioid drug., 175, cm, 10/29/21 14:02:00 EDT, Heig... Start Date: 11/05/21 Status: Ordered prochlorperazine 5 mg oral tablet 1 tablet = 5 mg, By Mouth, 3 times a day, PRN Nausea Start Date: 02/22/21 Status: Ordered Secur-t 12?? Drainable Standard Wear Transparent #[id number] Secur-t 12?? Drainable Standard Wear Transparent #[id number], See Instructions, # 20 each, Refills 11, [...] 0 Refills, Maintenance, 07/15/21 9:58:00 EST, Capsule, [facility], Partial fill upon patient [...] Name: Sara TRUJILLO, Cm Kunz Address: Address: [address] [place] [address]
--- OUTSIDE RECORDS SUMMARY | 2024-01-15 09:01 | XMS_ITS | Continuity of Care Document ---
Author Organization [facility] Address [address] [place] [address]- Care Team Providers Care Sampler And Test Preparer Name Role Phone Sara TRUJILLO, Cm Kunz Primary Care Physician Encounter [facility] Date(s): 02/16/22 - 04/09/22 [facility] [address] [place], [place] [address] Attending Physician: Osei Ahuja MD Admitting Physician: Osei Ahuja MD Allergies, Adverse Reactions, [...] Ordered Secur-t 12?? Drainable Standard Wear Transparent #[id number] Secur-t 12?? Drainable Standard Wear Transparent #[id number], See Instructions, # 20 each, Refills 11, [...] 0 Refills, Maintenance, 07/15/21 9:58:00 EST, Capsule, [facility], Partial fill upon patient request if the prescription is for a schedule II opioid drug., 1 capsule By Mouth Daily,x30 days, 175,... Start Date: 07/15/21 Stop Date: 08/14/21 Status: Ordered Problem List Condition Confirmation Course Effective Dates Status [facility]form[facility] Anoxic brain injury Confirmed Active Hemorrhagic shock Confirmed Active Bladder injury Confirmed Active Neurogenic bladder disorder Confirmed Active TMJ dysfunction Confirmed Active Social History Social History Type Response Smoking Status Current some day smo ker entered on: 02/04/15 Sex Patient Care team information Personnel Name: Sara TRUJILLO, Cm Kunz Address: Address: [address] [place] [id number]
--- OUTSIDE RECORDS SUMMARY | 2024-01-15 09:01 | XMS_ITS | Continuity of Care Document ---
Author Organization [facility] ter Address [address] [place] [address]- Care Team Providers Care Operating Room Registered Nurse Name Role Phone Not on Staff, PCP Primary Care Physician Unavail able Encounter [facility] Date(s): 11/10/19 - 11/12/[address] [address]- [facility] Discharge Disposition: A-D/C AMA Attending Physician: Andreina Barajas MD Admitting Physician: Alicia George MD Referring Physician: Not on Staff, Referring [...] mL, 0 Refills, Maintenance, 06/04/1910:46:00 EST, Syrup, [facility], 30 mL By Mouth 3 times a day,PRN:Constipation, 175, cm, 06/03/19 20:50:00 EST, Height, 49.3, kg, ... Start Date: 06/04/19 Status: Ordered Lexapro 10 mg oral tablet 1 tablet = 10 mg, By Mouth, Daily in AM, # 30 tablet, 0 Refills, Maintenance, 06/16/19 9:33:00 EST,Tablet, [id number], 176, cm, 06/16/19 6:59:00 EST, Height, 49, kg, 06/14/19 16:20:00 EST, Dry Weight Start Date: 06/16/19 Status: Ordered metoclopramide 10 mg oral tablet 1 tablet = 10 mg, By Mouth, 3 times a day before meals and bedtime, # 30 tablet, 0 Refills, Maintenance, 06/04/19 10:47:00 EST, Tablet, [facility], 175, cm, 06/03/19 20:50:00 EST, Height, 49.3, kg, 05/31/19 23:20:00 EST, Dry Weight Start Date: 06/04/19 Status: Ordered MiraLax oral powder for reconstitution = 17 Gm, By Mouth, Daily, dissolve in water before taking, # 255 Gm, 0 Refills, Maintenance, 06/04/19 11:10:00 EST, REC Powder, [facility], 17 Gm By Mouth Daily,Instr:dissolve in water before taking, 175, cm, 06/03/19 20:50:00 EST, Heigh... Start Date: 06/04/19 Status: Ordered Neurontin 300 mg oral capsule 600 mg, 2, capsule, By Mouth, 3 times a day, # 180 capsule, Refills 0, Tot. Refills 0, Maintenance,06/04/19 10:45:00 EST, Route to Pharmacy Electronically, [facility], 175, cm, 06/03/19 [...] 0 Refills, Maintenance, 06/16/19 11:41:00 EST, Tablet, [facility], 176, cm, 06/16/19 6:59:00 EST, Height, 49, kg, 06/14/19 16:20:00 EST, Dry Weight Start Date: 06/16/19 Stop Date: 06/21/19 Status: Ordered Problem List Condition Effective Dates Status Health Status Inform ant Hemorrhagic shock(Confirmed) Active Bladder injury(Confirmed) Active Vital Signs Most recent to oldest [Reference Range]: 1 2 3 Height 172 cm (11/12/19 3:16 PM) 172 cm (11/12/19 2:52 AM) 172 cm (11/11/19 8:39 PM) Weight 50.0 kg (11/09/19 2:31 AM) 50 kg (11/09/19 2:26 AM) Oxygen Saturation [94-100 %] 99 % (11/12/19 3:16 PM) 99 % (11/12/19 12:00 PM) 100 % (11/12/19 2:52 AM) Pulse Rate [55-90 bpm] 95 bpm *H* (11/12/19 3:16 PM) 93 bpm *H* (11/12/19 12:00 PM) 82 bpm (11/12/19 2:52 AM) Body Mass Index [18.5-24.99] 16.9 *L* (11/09/19 2:26 AM) Blood Pressure [90-138/55-84 mm Hg] 124/84mm Hg (11/12/19 3:16 PM) 130/80mm Hg (11/12/19 12:00 PM) 127/88mm Hg (11/12/19 2:52 AM) Respiratory Rate [16-30 br/min] 19 br/min (11/12/19 3:16 PM) 18 br/min (11/12/19 3:04 PM) 18 br/min (11/12/19 2:04 PM) Temperature [96.8-100.4 DegF] 97.9 DegF (11/12/19 3:16 PM) 98.6 DegF (11/12/19 12:00 PM) 97.8 DegF (11/12/19 2:52 AM) Mode of Delivery (Oxygen) Room air (11/12/19 3:16 PM) Room air (11/12/19 12:00 PM) Room air (11/12/19 2:52 AM) Blood pressure sites Arm, right (11/12/19 3:16 PM) Arm, right (11/12/19 12:00 PM) Arm, right (11/12/19 2:52 AM) Temperature Route Oral (11/12/19 3:16 PM) Oral (11/12/19 12:00 PM) Temporal (11/12/19 2:52 AM) Dry Weight 50 kg (11/09/19 2:26 AM) Social History Social History Type Response Smoking Status Current some day smo ker entered on: 02/04/15 Sex
--- OUTSIDE RECORDS SUMMARY | 2024-01-15 09:01 | XMS_ITS | Continuity of Care Document ---
Author Organization [facility] Address [address] [place] [address]- Care Team Providers Care Explosive Ordnance Disposal Specialist Name Role Phone Sara TRUJILLO, Cm Kunz Primary Care Physician En[place] [facility] Date(s): 02/03/22 - 03/05/22 [facility] [address] [place], [place] [address] Allergies, Adverse Reactions, Alerts Substance Reaction Severity [...] Refills, Maintenance, 11/05/21 10:19:00 EDT, CR Tablet, [id number], Partial fill upon patient request if the prescription is for a schedule II opioid drug., 175, cm, 10/29/21 14:02:00 EDT, [facility]... Start Date: 11/05/21 Status: Ordered prochlorperazine 5 mg oral tablet 1 tablet = 5 mg, By Mouth, 3 times a day, PRN Nausea Start Date: 02/22/21 Status: Ordered Secur-t 12?? Drainable Standard Wear Transparent #[id number] Secur-t 12?? Drainable Standard Wear Transparent #[id number], See Instructions, # 20 each, Refills 11, [...] 0 Refills, Maintenance, 07/15/21 9:58:00 EST, Capsule, [facility], Partial fill upon patient request if the prescription is for a schedule II opioid drug., 1 capsule By Mouth Daily,x30 days, 175,... Start Date: 07/15/21 Stop Date: 08/14/21 Status: Ordered Problem List Condition Confirmation Course Effective Dates Status [facility] at Informant Anoxic brain injury Confirmed Active Hemorrhagic shock Confirmed Active Bladder injury Confirmed Active Neurogenic bladder disorder Confirmed Active TMJ dysfunction Confirmed Active Social History Social History Type Response Smoking Status Current some day smo ker entered on: 02/04/15 Sex Patient Care team information Personnel Name: Sara TRUJILLO, Cm Kunz Address: Address: [address] [place] [address]
--- OUTSIDE RECORDS SUMMARY | 2024-01-15 09:01 | XMS_ITS | Continuity of Care Document ---
Author Organization [facility] Address [address] [place] [address]- Care Team Providers Care Utility Hand Name Role Phone Dave Guerra MD Primary Care Physician [phone] Encounter [facility] R [id number] Date(s): 05/06/21 - 06/05/[address] [address]- Attending Physician: Alxeander Jama Admitting Physician: Alexander Jama Referring Physician: [...]
--- OUTSIDE RECORDS SUMMARY | 2024-01-15 09:01 | XMS_ITS | Continuity of Care Document ---
Author Organization [facility] Address [address] [place] [address]- Care Team Providers Care Land Surveying Manager Name Role Phone Sara TRUJILLO, Cm Kunz Primary Care Physician Encounter [facility] Date(s): 03/02/22 - 03/09/22 [facility] [address] [place], [place] [address] Attending Physician: Not on Staff, Attending MD Allergies, Adverse Reactions, Alerts Substance Reaction [...] Refills, Maintenance, 11/05/21 10:19:00 EDT, CR Tablet, [facility][id number], Partial fill upon patient request if the prescription is for a schedule II opioid drug., 175, cm, 10/29/21 14:02:00 EDT, [facility]... Start Date: 11/05/21 Status: Ordered prochlorperazine 5 mg oral tablet 1 tablet = 5 mg, By Mouth, 3 times a day, PRN Nausea Start Date: 02/22/21 Status: Ordered Secur-t 12?? Drainable Standard Wear Transparent #[id number] Secur-t 12?? Drainable Standard Wear Transparent #[id number], See Instructions, # 20 each, Refills 11, [...] 0 Refills, Maintenance, 07/15/21 9:58:00 EST, Capsule, [facility], Partial fill upon patient request if the prescription is for a schedule II opioid drug., 1 capsule By Mouth Daily,x30 days, 175,... Start Date: 07/15/21 Stop Date: 08/14/21 Status: Ordered Problem List Condition Confirmation Course Effective Dates Status [facility] Informant Anoxic brain injury Confirmed Active Hemorrhagic shock Confirmed Active Bladder injury Confirmed Active Neurogenic bladder disorder Confirmed Active TMJ dysfunction Confirmed Active Social History Social History Type Response Smoking Status Current some day smo ker entered on: 02/04/15 Sex Patient Care team information Personnel Name: Sara TRUJILLO, Cm Kunz Address: Address: [address] [place] [address]
--- OUTSIDE RECORDS SUMMARY | 2024-01-15 09:01 | XMS_ITS | Continuity of Care Document ---
Author Organization [facility] Address [address] [place] [address]- Care Team Providers Care Raw Hide Trimmer Name Role Phone Sara TRUJILLO, Cm Kunz Primary Care Physician Encounter [facility] Date(s): 02/09/22 - 03/11/22 [facility] [address] [place], [place] [address] Allergies, Adverse Reactions, Alerts Substance Reaction [...] Ordered Secur-t 12?? Drainable Standard Wear Transparent #[id number] Secur-t 12?? Drainable Standard Wear Transparent #[id number], See Instructions, # 20 each, Refills 11, [...] 0 Refills, Maintenance, 07/15/21 9:58:00 EST, Capsule, [facility], Partial fill upon patient request if the prescription is for a schedule II opioid drug., 1 capsule By Mouth Daily,x30 days, 175,... Start Date: 07/15/21 Stop Date: 08/14/21 Status: Ordered Problem List Condition Confirmation Course Effective Dates Status [facility] at Informant Anoxic brain injury Confirmed Active Hemorrhagic shock Confirmed Active Bladder injury Confirmed Active Neurogenic bladder disorder Confirmed Active TMJ dysfunction Confirmed Active Social History Social History Type Response Smoking Status Current some day smo ker entered on: 02/04/15 Sex Patient Care team information Personnel Name: Sara TRUJILLO, Cm Kunz Address: Address: [address] [place] [address]
--- OUTSIDE RECORDS SUMMARY | 2024-01-15 09:01 | XMS_ITS | Continuity of Care Document ---
Author Organization [facility] ter Address [address] [place] [address]- Care Team Providers Care Lacquer Shader Name Role Phone Not on Staff, PCP Primary Care Physician Unavail able Encounter [facility] Date(s): 11/08/19 - 11/08/[address] [address]- [facility] Encounter Diagnosis Vomiting(Final) - 11/07/19 Discharge Disposition: A-D/C AMA Attending Physician: Xiomy Sinclair MD Admitting Physician: Claude Mendoza MD Referring Physician: Not on Staff, Referring [...] mL, 0 Refills, Maintenance, 06/04/1910:46:00 EST, Syrup, [facility], 30 mL By Mouth 3 times a day,PRN:Constipation, 175, cm, 06/03/19 20:50:00 EST, Height, 49.3, kg, ... Start Date: 06/04/19 Status: Ordered Lexapro 10 mg oral tablet 1 tablet = 10 mg, By Mouth, Daily in AM, # 30 tablet, 0 Refills, Maintenance, 06/16/19 9:33:00 EST,Tablet, [id number], 176, cm, 06/16/19 6:59:00 EST, Height, 49, kg, 06/14/19 16:20:00 EST, Dry Weight Start Date: 06/16/19 Status: Ordered metoclopramide 10 mg oral tablet 1 tablet = 10 mg, By Mouth, 3 times a day before meals and bedtime, # 30 tablet, 0 Refills, Maintenance, 06/04/19 10:47:00 EST, Tablet, [facility], 175, cm, 06/03/19 20:50:00 EST, Height, 49.3, kg, 05/31/19 23:20:00 EST, Dry Weight Start Date: 06/04/19 Status: Ordered MiraLax oral powder for reconstitution = 17 Gm, By Mouth, Daily, dissolve in water before taking, # 255 Gm, 0 Refills, Maintenance, 06/04/19 11:10:00 EST, REC Powder, [facility], 17 Gm By Mouth Daily,Instr:dissolve in water before taking, 175, cm, 06/03/19 20:50:00 EST, Heigh... Start Date: 06/04/19 Status: Ordered Neurontin 300 mg oral capsule 600 mg, 2, capsule, By Mouth, 3 times a day, # 180 capsule, Refills 0, Tot. Refills 0, Maintenance,06/04/19 10:45:00 EST, Route to Pharmacy Electronically, [facility], 175, cm, 06/03/19 20:50:00 EST, [...] 0 Refills, Maintenance, 06/16/19 11:41:00 EST, Tablet, [facility], 176, cm, 06/16/19 6:59:00 EST, Height, 49, kg, 06/14/19 16:20:00 EST, Dry Weight Start Date: 06/16/19 Stop Date: 06/21/19 Status: Ordered Problem List Condition Effective Dates Status Health Status Inform ant Hemorrhagic shock(Confirmed) Active Bladder injury(Confirmed) Active Results Orders for Microbiology Reports Name Date Urine Culture (URINE CULTURE) 11/07/19 Blood Culture 11/07/19 Blood Culture #2 11/07/19 Microbiology Reports TEST:Urine Culture STATUS:Unauthenticated BODY SITE: SOURCE:URINE COLLECTED DATE/TIME:11/07/19 10:08 PM Urine Culture SPECIMEN DESCRIPTION : URINE SPECIAL REQUESTS : NONE CULTURE : >100,000 COL/ML GRAM NEGATIVE RODS REPORT STATUS : PRELIMINARY REPORT TEST:Blood Culture, Second Order STATUS:Unauthenticated BODY SITE: SOURCE:Blood COLLECTED DATE/TIME:11/07/19 8:50 PM Blood Culture, Second Order SPECIMEN DESCRIPTION : BLOOD R AC SPECIAL REQUESTS : NONE CULTURE : NO GROWTH AFTER 24 HOURS REPORT STATUS : PRELIMINARY REPORT TEST:Blood Culture STATUS:Unauthenticated BODY SITE: SOURCE:Blood COLLECTED DATE/TIME:11/07/19 6:04 PM Blood Culture SPECIMEN DESCRIPTION : BLOOD LT HAND SPECIAL REQUESTS : NONE CULTURE : NO GROWTH AFTER 24 HOURS REPORT STATUS : PRELIMINARY REPORT Radiology Reports * Exam Date Time Procedure Performing Provider Status 11/07/19 7:27 PM Chest Portable Haily Lombardi; Peggy (Verified) Notes: (Chest Portable) Reason For Exam: Shortness of Breath RESULT: Chest Portable PROCEDURE: Chest Portable CLINICAL INDICATION: 29 years old Male with Shortness of Breath; Patient with progressively worsening, weakness lethargy, nausea, vomiting, abdominal pain, decreased PO intake. Similar symptoms in the past associated with urinary tract infection. chronic suprapubic catheter colostomy; COMPARISON: Several exams from 2015. FINDINGS: Portable AP erect view of the chest performed at 7:10 PM. Lines and tubes: Several EKG leads project over the chest. Lungs and pleura: Lungs are clear as visualized. No pleural effusions.No evidence of pneumothorax. Heart, mediastinum and kira: The cardiomediastinal silhouette and pulmonary vasculature are unremarkable. No cardiomegaly or pulmonary venous hypertension. Bones and soft tissues: Mild to moderate thoracic levoscoliosis which is new since the prior exam and likely positional. IMPRESSION: 1. No evidence of acute cardiopulmonary disease. Thank you for allowing me to participate in the care of this patient. WSN: [id number] Ordering Physician: Idalia Damon Dictated By: Guillaume Corado MD Dictated Date/Time: 11/07/19 7:37 pm Reviewed By: Guillaume Corado MD Signed By: Guillaume Corado MD Signed Date/Time: 11/07/19 7:37 pm Transcribed By: SAVANNAH Transcribed Date/Time: 11/07/19 7:35 pm Vital Signs Most recent to oldest [Reference Range]: 1 2 3 Oxygen Saturation [94-100 %] 95 % (11/08/19 5:07 AM) 98 % (11/07/19 11:38 PM) 99 % (11/07/19 11:02 PM) Pulse Rate [55-90 bpm] 82 bpm (11/08/19 8:19 AM) 70 bpm (11/08/19 5:07 AM) 72 bpm (11/07/19 11:38 PM) Blood Pressure [90-138/55-84 mm Hg] 146/82mm Hg *H* (11/08/19 5:07 AM) 125/80mm Hg (11/07/19 11:38 PM) 132/66mm Hg (11/07/19 11:02 PM) Respiratory Rate [16-30 br/min] 16 br/min (11/08/19 8:19 AM) 20 br/min (11/08/19 6:45 AM) 18 br/min (11/08/19 5:07 AM) Temperature [96.8-100.4 DegF] 98.2 DegF (11/08/19 8:19 AM) 98.9 DegF (11/08/19 5:00 AM) 97.6 DegF (11/07/19 11:02 PM) Mode of Delivery (Oxygen) Room air (11/08/19 8:19 AM) Room air (11/08/19 5:00 AM) Room air (11/07/19 11:38 PM) Blood pressure sites Arm, right (11/08/19 5:00 AM) Arm, right (11/07/19 11:38 PM) Arm, left (11/07/19 11:02 PM) Temperature Route Oral (11/08/19 8:19 AM) Oral (11/08/19 5:00 AM) Oral (11/07/19 8:32 PM) Social History Social History Type Response Smoking Status Current some day smo ker entered on: 02/04/15 Sex
--- OUTSIDE RECORDS SUMMARY | 2024-01-15 09:01 | XMS_ITS | Continuity of Care Document ---
Author Organization [facility] ter Address [address] [place] [address]- Care Team Providers Care Chief Sustainability Officer Name Role Phone Sara TRUJILLO, Cm Kunz Primary Care Physician Encounter [facility] Date(s): 01/08/22 - 01/16/[address] [address]- Encounter Diagnosis Knee effusion, left(Final) - 01/07/22 Urinary tract infection(Final) - 01/08/22 Discharge Disposition: A-D/C AMA Attending Physician: Earl TRUJILLO, Joy Admitting Physician: Laila Collier MD Referring Physician: Not on Staff, Referring [...] stating dont bother me. Medications Dilaudid Inj 1 mg, Injection, IV Push Slowly, Once, PRN for Pain , Severe, Routine, 01/16/22 8:38:00 EDT Start Date: 01/16/22 Stop Date: 01/16/22 Status: Completed Dilaudid Inj 1 mg, Injection, IV Push Slowly, Every 8 hours, PRN for Pain , Severe, monitor signs of sedation. RR<12: hold and notify MD., Routine, 01/13/22 14:14:00 EDT Start Date: 01/13/22 Stop Date: 01/17/22 Status: Discontinued docusate sodium 100 mg oral [...] Refills, Maintenance, 11/05/21 10:19:00 EDT, CR Tablet, [id number], Partial fill upon patient request if the prescription is for a schedule II opioid drug., 175, cm, 10/29/21 14:02:00 EDT, [facility]ig... Start Date: 11/05/21 Status: Ordered prochlorperazine 5 mg oral tablet 1 tablet = 5 mg, By Mouth, 3 times a day, PRN Nausea Start Date: 02/22/21 Status: Ordered Secur-t 12?? Drainable Standard Wear Transparent #[id number] Secur-t 12?? Drainable Standard Wear Transparent #[id number], See Instructions, # 20 each, Refills 11, [...] 0 Refills, Maintenance, 07/15/21 9:58:00 EST, Capsule, [facility], Partial fill upon patient [...] Reports Name Date Urine Culture (URINE CULTURE) 01/07/22 Microbiology Reports TEST:Urine Culture STATUS:Auth (Verified) BODY SITE: SOURCE:URINE COLLECTED DATE/TIME:01/07/22 4:54 PM Urine Culture SPECIMEN DESCRIPTION : URINE SPECIAL REQUESTS : NONE CULTURE : Mixed bacterial bertrand, indicative of urogenital contamination. REPORT STATUS : FINAL 01/10/2022 Radiology Reports * Exam Date Time Procedure Performing Provider Status 01/07/22 4:13 PM Knee 3 Views Left Lucrecia Thompson (Verified) Notes: (Knee 3 Views Left) Reason For Exam: with Pain;Trauma RESULT: Knee 3 Views Left Knee 3 Views Left Hx of Present Illness: Fall yesterday out of [place] onto the left side. Pt reports left knee pain withswelling. Pt also reports burning with urination and cloudy urine; Reason: Trauma; with Pain; Clinical Question(s): Fracture; Special Instructions: Patella ([place]) COMPARISON: None. FINDINGS: There is a fracture of the lateral tibial plateau extending into the tibial spines. No definite depression is seen. No arthritic change. There is a lipohemarthrosis. IMPRESSION: Acute lateral tibial plateau fracture with lipohemarthrosis. WSN: [id number] Ordering Physician: Tiffany Frausto Dictated By: Seda Venegas MD Dictated Date/Time: 01/07/22 4:34 pm Reviewed By: Seda Venegas MD Signed By: Seda Venegas MD Signed Date/Time: 01/07/22 4:34 pm Transcribed By: SAVANNAH Transcribed Date/Time: 01/07/22 4:33 pm Vital Signs Most recent to oldest [Reference Range]: 1 2 3 Height 175.26 cm (01/15/22 8:15 PM) 175.26 cm (01/14/22 2:31 PM) 175.26 cm (01/13/22 9:00 PM) Weight 58.1 kg (01/12/22 10:10 AM) 58.1 kg (01/08/22 4:51 PM) Oxygen Saturation [94-100 %] 100 % (01/15/22 8:15 PM) 100 % (01/15/22 2:00 PM) 100 % (01/14/22 2:31 PM) Pulse Rate [55-90 bpm] 95 bpm *H* (01/15/22 8:15 PM) 99 bpm *H* (01/15/22 2:00 PM) 89 bpm (01/14/22 2:31 PM) Body Mass Index [18.5-24.99] 18.92 (01/12/22 10:10 AM) 18.92 (01/08/22 4:51 PM) Blood Pressure [90-138/55-84 mm Hg] 170/85mm Hg *H* (01/15/22 8:15 PM) 144/92mm Hg *H* (01/15/22 2:00 PM) 137/81mm Hg (01/14/22 2:31 PM) Respiratory Rate [16-30 br/min] 16 br/min (01/16/22 9:01 AM) 16 br/min (01/16/22 8:31 AM) 16 br/min (01/16/22 4:42 AM) Temperature [96.8-100.4 DegF] 97.1 DegF (01/15/22 8:15 PM) 97.3 DegF (01/15/22 2:00 PM) 97.5 DegF (01/14/22 2:31 PM) Liters per Minute 6 L/min (01/12/22 3:15 PM) Mode of Delivery (Oxygen) Room air (01/15/22 2:00 PM) Room air (01/14/22 2:31 PM) Room air (01/13/22 9:00 PM) Blood pressure sites Arm, right (01/15/22 8:15 PM) Arm, right (01/15/22 2:00 PM) Arm, left (01/14/22 2:31 PM) Temperature Route Oral (01/15/22 8:15 PM) Oral (01/15/22 2:00 PM) Oral (01/14/22 2:31 PM) Dry Weight 58.1 kg (01/08/22 4:51 PM) Weight Obtained Via Bed scale (01/08/22 4:51 PM) Social History Social History Type Response Smoking Status Current some day jules lomax entered on: 02/04/15 Sex
--- OUTSIDE RECORDS SUMMARY | 2024-01-15 09:02 | XMS_ITS | Continuity of Care Document ---
Author Organization [facility] ter Address [address] [place] [address]- Care Team Providers Care Client Strategist Name Role Phone Not on Staff, PCP Primary Care Physician Unavail able [facility]counter [facility] Date(s): 05/28/19 - 06/05/[address] [address]- [facility] Encounter Diagnosis Acute urinary tract infection(Final) - 05/28/19 Chronic abdominal pain(Final) - 05/28/19 Discharge Disposition: A-Transfer VNA/Home Health Attending Physician: Marsha Callahan MD Admitting Physician: Dipika Ahuja MD Referring Physician: Not on Staff, Referring MD Allergies, Adverse Reactions, Alerts Substance Reaction Severity Status morphine 1 Active linezolid Hives Active 1sweats Immunizations Not Given Vaccine Date Status Refusal Reason pneumococcal 23-valent vaccine 02/02/15 Not Given Patient [...] 0 Refills, Maintenance, 06/04/1910:46:00 EST, Syrup, [facility], 30 mL By Mouth 3 times a day,PRN:Constipation, 175, cm, 06/03/19 20:50:00 EST, Height, 49.3, kg, 12/27/1... Start Date: 06/04/19 Status: Ordered Lorazepam = 1 mg, By Mouth, 4 times a day, PRN as needed for anxiety, 0 Refills, Maintenance, 05/28/19 23:39:00 EST Start Date: 05/28/19 Status: Ordered metoclopramide 10 mg oral tablet 1 tablet = 10 mg, By Mouth, 3 times a day before meals and bedtime, # 30 tablet, 0 Refills, Maintenance, 06/04/19 10:47:00 EST, Tablet, [facility], 175, cm, 06/03/19 20:50:00 EST, Height, 49.3, kg, 05/31/19 23:20:00 EST, Dry Weight Start Date: 06/04/19 Status: Ordered MiraLax oral powder for reconstitution = 17 Gm, By Mouth, Daily, dissolve in water before taking, # 255 Gm, 0 Refills, Maintenance, 06/04/19 11:10:00 EST, REC Powder, [facility], 17 Gm By Mouth Daily,Instr:dissolve in water before taking, 175, cm, 06/03/19 20:50:00 EST, Heigh... Start Date: 06/04/19 Status: Ordered Neurontin 300 mg oral capsule 600 mg, 2, capsule, By Mouth, 3 times a day, # 180 capsule, Refills 0, Tot. Refills 0, Maintenance,06/04/19 10:45:00 EST, Route to Pharmacy Electronically, [facility], 175, cm, 06/03/19 20:50:00 EST, Height, 49.3, kg, 05/31/19 23:20:00... Start Date: 06/04/19 Status: Ordered Nicoderm C-Q Clear 21 mg/24 hr transdermal film, extended release 1 patch, Topically, Daily, # 30 patch, 1 Refills, Maintenance, 06/04/19 10:29:00 EST, Patch Start Date: 06/04/19 Status: Ordered nicotine 2 mg oral transmucosal gum = 2 mg, Chew, Every hour, PRN Other, Nicotine Withdrawal Symptoms (NOT to exceed 24 pieces per day), # 10 each, 0 Refills, Maintenance, 06/04/19 10:28:00 EST, Gum Start Date: 06/04/19 Status: Ordered oxyCODONE 5 mg oral tablet 5 mg, 1, tablet, By Mouth, Every 6 hours, # 30 tablet, Refills 0, Tot. Refills 0, Maintenance, 06/04/19 11:09:00 EST, Partial fill upon patient request Start Date: 06/04/19 Status: Ordered prochlorperazine 5 mg/mL injectable solution 2 mL = 10 mg, IV Push Slowly, Every 6 hours, PRN Nausea Nausea & Vomiting, 0 Refills, Maintenance, 12/03/18 11:24:47 EDT, Injection Start Date: 12/03/18 Status: Ordered Senna By Mouth, 0 Refills, Maintenance, 05/28/19 23:46:00 EST Start Date: 05/28/19 Status: Ordered traZODone 50 mg oral tablet 50 mg, 1, tablet, By Mouth, Daily at bedtime, # 30 tablet, Refills 0, Maintenance, 05/28/19 16:03:00 EST Start Date: 05/28/19 Status: Ordered Problem List Condition Effective Dates Status Health Status Inform ant Hemorrhagic shock(Confirmed) Active Bladder injury(Confirmed) Active Vital Signs Most recent to oldest [Reference Range]: 1 2 3 Height 175 cm (06/04/19 8:31 PM) 175 cm (06/03/19 8:50 PM) 175 cm (06/03/19 6:26 PM) Weight 54.6 kg (06/05/19 6:07 AM) 55.1 kg (06/03/19 6:55 AM) 53.7 kg (06/01/19 6:11 AM) Oxygen Saturation [94-100 %] 98 % (06/04/19 8:31 PM) 100 % (06/03/19 8:50 PM) 100 % (06/03/19 6:26 PM) Pulse Rate [55-90 bpm] 76 bpm (06/04/19 8:31 PM) 96 bpm *H* (06/03/19 8:50 PM) 120 bpm *H* (06/03/19 6:26 PM) Body Mass Index [18.5-24.99] 16.1 *L* (05/31/19 1:24 PM) 16.1 *L* (05/28/19 3:50 PM) Blood Pressure [90-138/55-84 mm Hg] 106/54mm Hg (06/04/19 8:31 PM) 106/54mm Hg (06/03/19 8:50 PM) 112/57mm Hg (06/03/19 6:26 PM) Respiratory Rate [16-30 br/min] 18 br/min (06/05/19 5:13 AM) 18 br/min (06/04/19 10:00 PM) 18 br/min (06/04/19 10:00 PM) Temperature [96.8-100.4 DegF] 98.3 DegF (06/04/19 10:13 PM) 99.6 DegF (06/04/19 8:31 PM) 98.9 DegF (06/03/19 8:50 PM) Liters per Minute 5 L/min (05/31/19 3:00 PM) 5 L/min (05/31/19 2:45 PM) Mode of Delivery (Oxygen) Room air (06/04/19 8:31 PM) Room air (06/03/19 8:50 PM) Room air (06/03/19 6:26 PM) Blood pressure sites Arm, right (06/04/19 8:31 PM) Arm, right (06/03/19 8:50 PM) Arm, right (06/03/19 6:26 PM) Temperature Route Oral (06/04/19 10:13 PM) Oral (06/04/19 8:31 PM) Oral (06/03/19 8:50 PM) Dry Weight 49.3 kg (05/28/19 3:50 PM) Weight Obtained Via Bed scale (06/05/19 6:07 AM) Bed scale (06/03/19 6:55 AM) Bed scale (06/01/19 6:11 AM) Sensory deficits None (05/28/19 3:50 PM) Mobility assistance Wheelchair: assist (05/28/19 3:50 PM) Social History Social History Type Response Smoking Status Current some day smo ker entered on: 02/04/15 Sex
--- OUTSIDE RECORDS SUMMARY | 2024-01-15 09:02 | XMS_ITS | Continuity of Care Document ---
Author Organization [facility] ter Address [address] [place] [address]- Care Team Providers Care Student Development Coordinator Name Role Phone Sara TRUJILLO, Cm Kunz Primary Care Physician Encounter [facility] Date(s): 01/06/22 - 02/06/[address] [address] Attending Physician: Osei Ahuja MD Admitting [...] Refills, Maintenance, 11/05/21 10:19:00 EDT, CR Tablet, [facility] #[id number], Partial fill upon patient request if the prescription is for a schedule II opioid drug., 175, cm, 10/29/21 14:02:00 EDT, [facility]... Start Date: 11/05/21 Status: Ordered prochlorperazine 5 mg oral tablet 1 tablet = 5 mg, By Mouth, 3 times a day, PRN Nausea Start Date: 02/22/21 Status: Ordered Secur-t 12?? Drainable Standard Wear Transparent #[id number] Secur-t 12?? Drainable Standard Wear Transparent #[id number], See Instructions, # 20 each, Refills 11, [...] 0 Refills, Maintenance, 07/15/21 9:58:00 EST, Capsule, [facility], Partial fill upon patient [...] Personnel Name: Sara TRUJILLO, Cm Kunz Address: [address] [place] [address]
--- OUTSIDE RECORDS SUMMARY | 2024-01-15 09:02 | XMS_ITS | Continuity of Care Document ---
Author Organization [facility] Address [address] [place] [address]- Care Team Providers Care Chief Concierge Name Role Phone Sara TRUJILLO, Cm Kunz Primary Care Physician Encounter [facility] Date(s): 04/04/22 - 05/04/22 [facility] [address] [place], [place] [address] Allergies, Adverse Reactions, Alerts Substance Reaction Severity [...] Refills, Maintenance, 11/05/21 10:19:00 EDT, CR Tablet, [facility]/pharmacy #[id number], Partial fill upon patient request if [...] Ordered Secur-t 12?? Drainable Standard Wear Transparent #[id number] Secur-t 12?? Drainable Standard Wear Transparent #[id number], See Instructions, # 20 each, Refills 11, [...] 0 Refills, Maintenance, 07/15/21 9:58:00 EST, Capsule, [facility], Partial fill upon [...] Team Personnel Name: Ashley Lewis RN Position: [facility] RN Member Role: Primary Care Nurse Name: Karl Church RN Position: [facility] RN Member Role: Primary Care Nurse Name: Jay Bush RN Position: [facility] ED RN W/OE and Tasks Member Role: Primary Care Nurse Name: Reanna Davies RN Position: [facility] PCO RN Member Role: Primary Care Nurse Name: Kita Mahajan RN Position: [facility] RN Member Role: Primary Care Nurse Name: Michelle Miller RN Position: [facility] RN Member Role: Primary Care Nurse Name: Shoshana Vasquez RN Position: [facility] RN Member Role: Primary Care Nurse Name: Antelmo Johnson RN Position: [facility] RN Member Role: Primary Care Nurse Name: Poonam Sanchez RN Position: [facility] RN Member Role: Primary Care Nurse Name: Jonas Hampton RN Position: [facility] RN Member Role: Primary Care Nurse Name: TIFFANY PELAYO RN Position: [facility] RN Member Role: Primary Care Nurse Name: Arlet Ferraro RN Position: [facility] RN Member Role: Primary Care Nurse Name: Sobeida Lomeli RN Position: [facility] RN Member Role: Primary Care Nurse Name: Stella Macias RN Position: [facility] HBO Wound Member Role: Primary Care Nurse Name: Sobeida Dickson RN Position: [facility] RN Member Role: Primary Care Nurse Name: Juan J Hinojosa RN Position: [facility] RN Member Role: Primary Care Nurse Name: Cm Ruiz MD Position: Reference Physician Member Role: PCP Address: Address: [address] [place] [address] Name: Esther Simmons Position: [facility] RN Member Role: Primary Care Nurse Name: Deepti Brown RN Position: [facility] RN Member Role: Primary Care Nurse Name: Carmelina Horta RN Position: [facility] RN Member Role: Primary Care Nurse Name: Sabrina Lobato RN Position: [facility] RN Member Role: Primary Care Nurse Name: Mari Lira RN Position: [facility] RN Supv Member Role: Primary Care Nurse Name: Kvng Millard RN Position: [facility] ED RN W/OE and Tasks Member Role: Primary Care Nurse Name: Sho Vasquez RN Position: [facility] AMB Nurse Member Role: Primary Care Nurse Name: Alex Marmolejo RN Position: [facility] RN Member Role: Primary Care Nurse Name: Chantal Quezada Position: [facility] Outreach Member Role: Lifetime Consulting Physician Name: Angie Barry RN Position: [facility] RN Member Role: Primary Care Nurse Name: Rik Titus MD Position: [facility] Renal MD Member Role: Lifetime Consulting Physician Address: Address: [address] [place] [address] [facility] [address] Name: Tiffany Connor RN Position: [facility] RN Member Role: Primary Care Nurse Name: Sobeida Juarez RN Position: [facility] SN RN Member Role: Primary Care Nurse Name: Agnes Sam RN Position: [facility] RN Member Role: Primary Care Nurse Name: Arlet Campos RN Position: [facility] RN Member Role: Primary Care Nurse Name: Nusrat Salguero RN Position: [facility] Onco RN Member Role: Primary Care Nurse Care Team Related Persons Name: MICKY ROSE Name: MADELEINE DAWN Address: home [address] [place] [address] Name: [employer] [employer] Address: home [address] [place] [address] Name: SANA VASQUEZ Address: home [address] [place] [address]
--- OUTSIDE RECORDS SUMMARY | 2024-01-15 09:02 | XMS_ITS | Continuity of Care Document ---
Author Organization [facility] Address [address] [place] [address]- Care Team Providers Care Elementary Education Teacher Name Role Phone Sara TRUJILLO, Cm Kunz Primary Care Physician Encounter [facility] Date(s): 02/21/22 - 03/23/22 [facility] [address] [place], [place] [address] Allergies, Adverse Reactions, Alerts Substance Reaction [...] Refills, Maintenance, 11/05/21 10:19:00 EDT, CR Tablet, [facility]/pharmacy #[id number], Partial fill upon patient request if the prescription is for a schedule II opioid drug., 175, cm, 10/29/21 14:02:00 EDT, Heig... Start Date: 11/05/21 Status: Ordered prochlorperazine 5 mg oral tablet 1 tablet = 5 mg, By Mouth, 3 times a day, PRN Nausea Start Date: 02/22/21 Status: Ordered Secur-t 12?? Drainable Standard Wear Transparent #[id number] Secur-t 12?? Drainable Standard Wear Transparent #[id number], See Instructions, # 20 each, Refills 11, [...] 0 Refills, Maintenance, 07/15/21 9:58:00 EST, Capsule, [facility], Partial fill upon patient request if the prescription is for a schedule II opioid drug., 1 capsule By Mouth Daily,x30 days, 175,... Start Date: 07/15/21 Stop Date: 08/14/21 Status: Ordered Problem List Condition Confirmation Course Effective Dates Status [facility] Anoxic brain injury Confirmed Active Hemorrhagic shock Confirmed Active Bladder injury Confirmed Active Neurogenic bladder disorder Confirmed Active TMJ dysfunction Confirmed Active Social History Social History Type Response Smoking Status Current some day smo ker entered on: 02/04/15 Sex Patient Care team information Personnel Name: Sara TRUJILLO, Cm Kunz Address: Address: [address] [place] [id number]
--- OUTSIDE RECORDS SUMMARY | 2024-01-15 09:02 | XMS_ITS | Continuity of Care Document ---
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 Drainable Standard Wear Transparent #[id number] Secur-t 12?? Drainable Standard Wear Transparent #[id number], See Instructions, # 20 each, Refills 11, Tot. 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 Start Date: 11/03/21 Status: Ordered Therapeutic Multiple Vitamins with Minerals oral capsule 1 capsule, By Mouth, Daily, # 30 capsule, 0 Refills, Maintenance, 07/15/21 9:58:00 EST, Capsule, [facility], Partial fill upon patient request if the prescription is for a schedule II opioid drug., 1 capsule By Mouth Daily,x30 days, 175,... Start Date: 07/15/21 Stop Date: 08/14/21 Status: Ordered Problem List Condition Confirmation Course Effective Dates Status [facility] Anoxic brain injury Confirmed Active [...] Team Personnel Name: Ashley Lewis RN Position: [facility] RN Member Role: Primary Care Nurse Name: Karl Church RN Position: [facility] RN Member Role: Primary Care Nurse Name: Jay Bush RN Position: [facility] ED RN W/OE and Tasks Member Role: Primary Care Nurse Name: Reanna Davies RN Position: [facility] AMB Nurse Member Role: Primary Care Nurse Name: Kita Mahajan RN Position: [facility] RN Member Role: Primary Care Nurse Name: Sobeida Long RN Position: [facility] RN Member Role: Primary Care Nurse Name: Shoshana Vasquez RN Position: [facility] RN Member Role: Primary Care Nurse Name: Antelmo Johnson RN Position: [facility] RN Member Role: Primary Care Nurse Name: Abigail Chen RN Position: [facility] RN Member Role: Primary Care Nurse Name: Poonam Sanchez RN Position: [facility] RN Member Role: Primary Care Nurse Name: Jonas Hampton RN Position: [facility] RN Member Role: Primary Care Nurse Name: Tiffany Buckley RN Position: [facility] RN Member Role: Primary Care Nurse Name: Arlet Ferraro RN Position: [facility] RN Member Role: Primary Care Nurse Name: Jennifer Andesron RN Position: [facility] RN Member Role: Primary Care Nurse Name: Stella Macias RN Position: [facility] HBO Wound Member Role: Primary Care Nurse Name: Harshad Agee RN Position: [facility] RN Member Role: Primary Care Nurse Name: Sobeida Dickson RN Position: [facility] RN Member Role: Primary Care Nurse Name: Juan J Hinojosa RN Position: [facility] RN Member Role: Primary Care Nurse Name: Cm Ruiz MD Position: Reference Physician Member Role: PCP Address: Address: [address] [place] [address] Name: Esther Simmons Position: [facility] RN Member Role: Primary Care Nurse Name: Deepti Brown RN Position: [facility] RN Member Role: Primary Care Nurse Name: Carmelina Horta RN Position: [facility] RN Member Role: Primary Care Nurse Name: Sabrina Lobato RN Position: [facility] RN Member Role: Primary Care Nurse Name: Heaven Penn RN Position: [facility] RN Member Role: Primary Care Nurse Name: Mari Lira RN Position: [facility] RN Supv Member Role: Primary Care Nurse Name: Sho Vasquez RN Position: [facility] AMB Nurse Member Role: Primary Care Nurse Name: Alex Marmolejo RN Position: [facility] RN Member Role: Primary Care Nurse Name: Chantal Quezada Position: [facility] Outreach Member Role: Lifetime Consulting Physician Name: Angie Barry RN Position: [facility] RN Member Role: Primary Care Nurse Name: Rik Titus MD Position: [facility] Renal MD Member Role: Lifetime Consulting Physician Address: Address: [address] [place] [address] [facility] [address] Name: Shoshana Al RN Position: [facility] RN Member Role: Primary Care Nurse Name: Paula Douglas RN Position: [facility] RN Member Role: Primary Care Nurse Name: Sobeida Juarez RN Position: [facility] SN RN Member Role: Primary Care Nurse Name: Agnes Sam RN Position: [facility] RN Member Role: Primary Care Nurse Name: Arlet Campos RN Position: [facility] RN Member Role: Primary Care Nurse Name: Nusrat Salguero RN Position: [facility] Onco RN Member Role: Primary Care Nurse Care Team Related Persons Name: MICKY ROSE Name: MADELEINE DAWN Address: home [address] [place] [address] Name: [employer] Address: home [address] [place] [address] Name: SANA VASQUEZ Address: home [address] [place] [address]
--- OUTSIDE RECORDS SUMMARY | 2024-01-15 09:02 | XMS_ITS | Continuity of Care Document ---
Author Organization [facility] ter Address [address] [place] [address]- Care Team Providers Care Hemstitching Machine Operator Name Role Phone Not on Staff, PCP Primary Care Physician Unavail able Encounter [facility] Date(s): 03/19/20 - 03/21/[address] [address]- [facility] Encounter Diagnosis Lactic acidosis(Final) - 03/18/20 Discharge Disposition: A-D/C Home Attending Physician: Tim TRUJILLO, Dave Peralta Admitting Physician: Tim Castro MD Referring Physician: Not on Staff, Referring [...] 9:56:00 EDT Start Date: 02/19/20 Status: Ordered Augmentin 875 mg-125 mg oral tablet 1 tablet, By Mouth, Every 12 hours, for 11 days, # 22 tablet, 0 Refills, Acute 04/02/20 7:00:00 EDT, 03/22/20 7:00:00 EDT, Tablet, [id number], 165, cm, 03/21/20 6:06:00 EDT, Height, 55, kg, 03/19/20 20:17:00 EDT, Dry Weight Start Date: 03/22/20 Stop Date: 04/02/20 Status: Ordered baclofen 10 mg oral tablet [...] mL, 0 Refills, Maintenance, 06/04/1910:46:00 EST, Syrup, [facility], 30 mL By Mouth 3 times a day,PRN:Constipation, 175, cm, 06/03/19 20:50:00 EST, Height, 49.3, kg, ... Start Date: 06/04/19 Status: Ordered Lexapro 10 mg oral tablet 1 tablet = 10 mg, By Mouth, Daily in AM, # 30 tablet, 0 Refills, Maintenance, 06/16/19 9:33:00 EST,Tablet, [facility] #[id number], 176, cm, 06/16/19 6:59:00 EST, Height, 49, kg, 06/14/19 16:20:00 EST, Dry Weight Start Date: 06/16/19 Status: Ordered MiraLax oral powder for reconstitution = 17 Gm, By Mouth, Daily, dissolve in water before taking, # 255 Gm, 0 Refills, Maintenance, 06/04/19 11:10:00 EST, REC Powder, [facility], 17 Gm By Mouth Daily,Instr:dissolve in water before taking, 175, cm, 06/03/19 20:50:00 EST, Heigh... Start Date: 06/04/19 Status: Ordered Neurontin 300 mg oral capsule 300 mg, 1, capsule, By Mouth, 3 times a day, # 180 capsule, Refills 0, Tot. Refills 0, Maintenance,06/04/19 10:45:00 EST, Route to Pharmacy Electronically, [facility], 175, cm, 06/03/19 20:50:00 [...] 0 Refills, Maintenance, 06/16/19 11:41:00 EST, Tablet, [facility], 176, cm, 06/16/19 6:59:00 EST, Height, 49, kg, 06/14/19 16:20:00 EST, Dry Weight Start Date: 06/16/19 Stop Date: 06/21/19 Status: Ordered Problem List Condition Effective Dates Status Health Status Inform ant Hemorrhagic shock(Confirmed) Active Bladder injury(Confirmed) Active Results Orders for Microbiology Reports Name Date Urine Culture (URINE CULTURE) 03/19/20 Blood Culture 03/18/20 Blood Culture #2 03/18/20 Microbiology Reports TEST:Urine Culture STATUS:Auth (Verified) BODY SITE: SOURCE:URINE COLLECTED DATE/TIME:03/19/20 12:06 AM Urine Culture SPECIMEN DESCRIPTION : URINE SPECIAL REQUESTS : NONE CULTURE : >100,000 COL/ML CITROBACTER (DIVERSUS) FABIOERI REPORT STATUS : FINAL 03/21/2020 ORGANISM >100,000 COL/ML CITROBACTER (DIVERSUS) KOSERI METHOD MIN. INHIB. CONC. (MCG/ML) AMPICILLIN RESISTANT AMPICILLIN/SULBACTAM SUSCEPTIBLE AMOXICILLIN/CLAVULAN SUSCEPTIBLE CEFAZOLIN INTERMEDIATE CEFEPIME SUSCEPTIBLE CEFTRIAXONE SUSCEPTIBLE CIPROFLOXACIN SUSCEPTIBLE ERTAPENEM SUSCEPTIBLE GENTAMICIN SUSCEPTIBLE LEVOFLOXACIN SUSCEPTIBLE MEROPENEM SUSCEPTIBLE NITROFURANTOIN SUSCEPTIBLE PIPERACILLIN/TAZOBAC SUSCEPTIBLE TRIMETH/SULFAMETHOX SUSCEPTIBLE TETRACYCLINE INTERMEDIATE TEST:Blood Culture, Second Order STATUS:Unauthenticated BODY SITE: SOURCE:Blood COLLECTED DATE/TIME:03/18/20 9:13 PM Blood Culture, Second Order SPECIMEN DESCRIPTION : BLOOD NO SITE SPECIAL REQUESTS : NONE CULTURE : NO GROWTH 3 DAYS REPORT STATUS : PRELIMINARY REPORT TEST:Blood Culture STATUS:Unauthenticated BODY SITE: SOURCE:Blood COLLECTED DATE/TIME:03/18/20 6:15 PM Blood Culture SPECIMEN DESCRIPTION : BLOOD NO SITE SPECIAL REQUESTS : NONE CULTURE : NO GROWTH 3 DAYS REPORT STATUS : PRELIMINARY REPORT Vital Signs Most recent to oldest [Reference Range]: 1 2 3 Height 165 cm (03/21/20 6:06 AM) 165 cm (03/21/20 12:33 AM) 165 cm (03/20/20 4:30 PM) Weight 55 kg (03/19/20 2:40 PM) Oxygen Saturation [94-100 %] 99 % (03/21/20 6:06 AM) 98 % (03/21/20 12:33 AM) 99 % (03/20/20 11:03 AM) Pulse Rate [55-90 bpm] 97 bpm *H* (03/21/20 6:06 AM) 93 bpm *H* (03/21/20 12:33 AM) 91 bpm *H* (03/20/20 4:30 PM) Body Mass Index [18.5-24.99] 20.2 (03/19/20 2:40 PM) Blood Pressure [90-138/55-84 mm Hg] 142/88mm Hg *H* (03/21/20 6:06 AM) 153/90mm Hg *H* (03/21/20 12:33 AM) 155/87mm Hg *H* (03/20/20 4:30 PM) Respiratory Rate [16-30 br/min] 18 br/min (03/21/20 4:11 PM) 18 br/min (03/21/20 3:41 PM) 20 br/min (03/21/20 12:39 PM) Temperature [96.8-100.4 DegF] 97.5 DegF (03/21/20 6:06 AM) 97.4 DegF (03/21/20 12:33 AM) 97.7 DegF (03/20/20 4:30 PM) Liters per Minute 1 L/min (03/20/20 11:03 AM) Mode of Delivery (Oxygen) Room air (03/21/20 6:06 AM) Room air (03/21/20 12:33 AM) Room air (03/20/20 4:30 PM) Blood pressure sites Arm, right (03/21/20 6:06 AM) Arm, right (03/21/20 12:33 AM) Arm, left (03/20/20 4:30 PM) Temperature Route Oral (03/21/20 6:06 AM) Oral (03/21/20 12:33 AM) Oral (03/20/20 4:30 PM) Dry Weight 55 kg (03/19/20 2:40 PM) Social History Social History Type Response Smoking Status Current some day smo ker entered on: 02/04/15 Sex
--- OUTSIDE RECORDS SUMMARY | 2024-01-15 09:02 | XMS_ITS | Continuity of Care Document ---
Author Organization [facility] Address [address] [place] [id number]- Care Team Providers Care Pharmacy Innovation Assistant Name Role Phone Sara TRUJILLO, Cm Kunz Primary Care Physician [place] [facility] [place] 01/03/22 [facility] [address] [place], [place] [address] Attending Physician: Osei Ahuja MD Admitting Physician: Osei Ahuja MD Referring Physician: Sheridan Moore DO Allergies, Adverse Reactions, Alerts Substance Reaction Severity [...] Maintenance, 11/05/21 10:19:00 EDT, CR Tablet, [facility]/pharmacy #[id number], Partial fill upon patient request if the prescription is for a schedule II opioid drug., 175, cm, 10/29/21 14:02:00 EDT, [facility]... Start Date: 11/05/21 Status: Ordered prochlorperazine 5 mg oral tablet 1 tablet = 5 mg, By Mouth, 3 times a day, PRN Nausea Start Date: 02/22/21 Status: Ordered Secur-t 12?? Drainable Standard Wear Transparent #[id number] Secur-t 12?? Drainable Standard Wear Transparent #[id number], See Instructions, # 20 each, Refills 11, [...] 0 Refills, Maintenance, 07/15/21 9:58:00 EST, Capsule, [facility], Partial fill upon patient request if the prescription is for a schedule II opioid drug., 1 capsule By Mouth Daily,x30 days, 175,... Start Date: 07/15/21 Stop Date: 08/14/21 Status: Ordered Problem List Condition Effective Dates Status Health Status Inform ant Anoxic brain injury(Confirmed) Active Hemorrhagic shock(Confirmed) Active Bladder injury(Confirmed) Active Neurogenic bladder disorder(Confirmed) Active TMJ dysfunction(Confirmed) Active Underweight(Confirmed) Active Vital Signs Most recent to oldest [Reference Range]: 1 Height 175 cm (12/27/21 3:09 PM) Weight 54.43 kg (12/27/21 3:09 PM) Oxygen Saturation [94-100 %] 98 % (12/27/21 3:09 PM) Pulse Rate [55-90 bpm] 84 bpm (12/27/21 3:09 PM) Body Mass Index [18.5-24.99] 17.77 *L* (12/27/21 3:09 PM) Blood Pressure [90-138/55-84 mm Hg] 110/ 62mm Hg (12/27/21 3:09 PM) Mode of Delivery (Oxygen) Room air (12/27/21 3:09 PM) Blood pressure sites Arm, left (12/27/21 3:09 PM) Weight Obtained Via Patient/family state d (12/27/21 3:09 PM) Social History Social History Type Response Smoking Status Current some day [facility] dami entered on: 02/04/15 Sex
--- OUTSIDE RECORDS SUMMARY | 2024-01-15 09:02 | XMS_ITS | Continuity of Care Document ---
Author Organization [facility] Address [address] [place] [address]- Care Team Providers Care Rehab Therapist Name Role Phone Cm Ruiz MD Primary Care Physician Encounter [facility] [place] Date(s): 12/30/21 - 03/05/22 [facility] [address] [place], [place] [address] Attending Physician: Osei Ahuja MD Admitting Physician: [...] Refills, Maintenance, 11/05/21 10:19:00 EDT, CR Tablet, [facility]/pharmacy #[id number], Partial fill upon patient request if the prescription is for a schedule II opioid drug., 175, cm, 10/29/21 14:02:00 EDT, [place]... Start Date: 11/05/21 Status: Ordered prochlorperazine 5 mg oral tablet 1 tablet = 5 mg, By Mouth, 3 times a day, PRN Nausea Start Date: 02/22/21 Status: Ordered Secur-t 12?? Drainable Standard Wear Transparent #[id number] Secur-t 12?? Drainable Standard Wear Transparent #[id number], See Instructions, # 20 each, Refills 11, [...] 0 Refills, Maintenance, 07/15/21 9:58:00 EST, Capsule, [facility], Partial fill upon patient [...] Name: Sara TRUJILLO, Cm Kunz Address: Address: [address] [place] [address]
--- OUTSIDE RECORDS SUMMARY | 2024-01-15 09:02 | XMS_ITS | Continuity of Care Document ---
Author Organization [facility] Address [address] [place] [address]- Care Team Providers Care Gasket Notcher Name Role Phone Not on Staff, PCP Primary Care Physician Unavail able [place] [facility] [place](s): 02/14/20 - 02/15/[address] [address] [facility] Encounter Diagnosis UTI (urinary tract infection)(Final) - 02/14/20 Suprapubic catheter(Final) - 02/14/20 Abdominal pain(Final) - 02/14/20 Discharge Disposition: A-D/C AMA Attending Physician: Wesley Childress MD, Dinesh Garcia Admitting Physician: Ariel TRUJILLO, Alicia Lujan Referring Physician: Not on Staff, Referring MD [...] 11:41:47 Start Date: 02/06/15 Status: Ordered Bactrim 400 mg-80 mg oral tablet 2 tablet, By Mouth, 2 times a day, for 7 days, # 28 tablet, 0 Refills, Acute 02/22/20 14:46:00 EDT,02/15/20 14:46:00 EDT, Tablet, [id number], 2 tablet By Mouth 2 times a day,x7 days, 175, cm, 12/29/19 5:09:00 EDT, Height, 55, kg, 07/... Start Date: 02/15/20 Stop Date: 02/22/20 Status: Ordered Colace sodium 100 mg oral [...] mL, 0 Refills, Maintenance, 06/04/1910:46:00 EST, Syrup, [facility], 30 mL By Mouth 3 times a day,PRN:Constipation, 175, cm, 06/03/19 20:50:00 EST, Height, 49.3, kg, ... Start Date: 06/04/19 Status: Ordered Lexapro 10 mg oral tablet 1 tablet = 10 mg, By Mouth, Daily in AM, # 30 tablet, 0 Refills, Maintenance, 06/16/19 9:33:00 EST,Tablet, [facility] #[id number], 176, cm, 06/16/19 6:59:00 EST, Height, 49, kg, 06/14/19 16:20:00 EST, Dry Weight Start Date: 06/16/19 Status: Ordered metoclopramide 10 mg oral tablet 1 tablet = 10 mg, By Mouth, 3 times a day before meals and bedtime, # 30 tablet, 0 Refills, Maintenance, 06/04/19 10:47:00 EST, Tablet, [facility], 175, cm, 06/03/19 20:50:00 EST, Height, 49.3, kg, 05/31/19 23:20:00 EST, Dry Weight Start Date: 06/04/19 Status: Ordered MiraLax oral powder for reconstitution = 17 Gm, By Mouth, Daily, dissolve in water before taking, # 255 Gm, 0 Refills, Maintenance, 06/04/19 11:10:00 EST, REC Powder, [facility], 17 Gm By Mouth Daily,Instr:dissolve in water before taking, 175, cm, 06/03/19 20:50:00 EST, Heigh... Start Date: 06/04/19 Status: Ordered Neurontin 300 mg oral capsule 600 mg, 2, capsule, By Mouth, 3 times a day, # 180 capsule, Refills 0, Tot. Refills 0, Maintenance,06/04/19 10:45:00 EST, Route to Pharmacy Electronically, [facility], 175, cm, 06/03/19 20:50:00 EST, [...] 0 Refills, Maintenance, 06/16/19 11:41:00 EST, Tablet, [facility], 176, cm, 06/16/19 6:59:00 EST, Height, 49, kg, 06/14/19 16:20:00 EST, Dry Weight Start Date: 06/16/19 Stop Date: 06/21/19 Status: Ordered Problem List Condition Effective Dates Status Health Status Inform ant Hemorrhagic shock(Confirmed) Active Bladder injury(Confirmed) Active Results Orders for Microbiology Reports Name Date Blood Culture 02/14/20 Blood Culture #2 02/14/20 Microbiology Reports TEST:Blood Culture, Second Order STATUS:Unauthenticated BODY SITE: SOURCE:Blood COLLECTED DATE/TIME:02/14/20 5:44 PM Blood Culture, Second Order SPECIMEN DESCRIPTION : BLOOD RT HAND SPECIAL REQUESTS : NONE CULTURE : NO GROWTH AFTER 24 HOURS REPORT STATUS : PRELIMINARY REPORT TEST:Blood Culture STATUS:Unauthenticated BODY SITE: SOURCE:Blood COLLECTED DATE/TIME:02/14/20 1:35 PM Blood Culture SPECIMEN DESCRIPTION : BLOOD LAC SPECIAL REQUESTS : NONE CULTURE : NO GROWTH AFTER 24 HOURS REPORT STATUS : PRELIMINARY REPORT Vital Signs Most recent to oldest [Reference Range]: 1 2 3 Oxygen Saturation [94-100 %] 100 % (02/15/20 5:45 AM) 100 % (02/14/20 11:14 PM) 100 % (02/14/20 8:00 PM) Pulse Rate [55-90 bpm] 84 bpm (02/15/20 5:45 AM) 92 bpm *H* (02/14/20 11:14 PM) 97 bpm *H* (02/14/20 8:00 PM) Blood Pressure [90-138/55-84 mm Hg] 134/84mm Hg (02/15/20 5:45 AM) 129/78mm Hg (02/14/20 11:14 PM) 123/71mm Hg (02/14/20 8:00 PM) Respiratory Rate [16-30 br/min] 20 br/min (02/15/20 10:02 AM) 18 br/min (02/15/20 5:45 AM) 20 br/min (02/15/20 5:36 AM) Temperature [96.8-100.4 DegF] 98.4 DegF (02/15/20 5:45 AM) 98.1 DegF (02/14/20 8:00 PM) 98.4 DegF (02/14/20 5:00 PM) Mode of Delivery (Oxygen) Room air (02/15/20 5:45 AM) Room air (02/14/20 11:14 PM) Room air (02/14/20 8:00 PM) Blood pressure sites Arm, left (02/15/20 5:45 AM) Arm, left (02/14/20 11:14 PM) Temperature Route Oral (02/15/20 5:45 AM) Oral (02/14/20 8:00 PM) Oral (02/14/20 5:00 PM) Social History Social History Type Response Smoking Status Current some day smo ker entered on: 02/04/15 Sex
--- OUTSIDE RECORDS SUMMARY | 2024-01-15 09:02 | XMS_ITS | Continuity of Care Document ---
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 Position: [facility] Outreach Member Role: Lifetime Consulting Physician Name: Angie Barry RN Position: [facility] RN Member Role: Primary Care Nurse Name: Rik Titus MD Position: [facility] Renal MD Member Role: Lifetime Consulting Physician Address: Address: [address] [place] [address] [facility] [place] [address]- Name: Shoshana Al RN Position: [facility] RN Member Role: Primary Care Nurse Name: Paula Douglas RN Position: [facility] RN Member Role: Primary Care Nurse Name: Sobeida Juarez RN Position: [facility] SN RN Member Role: Primary Care Nurse Name: Agnes Sam RN Position: [facility] RN Member Role: Primary Care Nurse Name: Arlet Campos RN Position: [facility] RN Member Role: Primary Care Nurse Name: Nusrat Salguero RN Position: [facility] Onco RN Member Role: Primary Care Nurse Care Team Related Persons Name: MICKY ROSE Name: MADELEINE DAWN Address: home [address] [place] [address] Name: [facility] Address: home [address] [place] [address] Name: SANA VASQUEZ Address: home [address] [place] [address]
--- OUTSIDE RECORDS SUMMARY | 2024-01-15 09:02 | XMS_ITS | Continuity of Care Document ---
Author Organization [facility] ter Address [address] [place] [id number]- Care Team Providers Care Showroom Manager Name Role Phone Not on Staff, PCP Primary Care Physician Unavail able [place] [facility] [place] - 06/14/[address] [address]- Encounter Diagnosis Suprapubic catheter dysfunction(Final) - 06/14/20 UTI (urinary tract infection)(Final) - 06/14/20 Discharge Disposition: A-D/C Home Attending Physician: Vikram TRUJILLO, Tigist Sterling Admitting Physician: Tigist Sue MD Referring Physician: Not on Staff, Referring [...] 9:56:00 EDT Start Date: 02/19/20 Status: Ordered Bactrim DS 800 mg-160 mg oral tablet 1 tablet, By Mouth, 2 times a day, for 14 days, # 28 tablet, 0 Refills, Acute 06/28/20 0:21:00 EST,06/14/20 0:21:00 EST, Tablet, [facility]/pharmacy #[id number], Partial fill upon patient request if the prescription is for a schedule II opioid drug., 1 tablet By... Start Date: 06/14/20 Stop Date: 06/28/20 Status: Ordered Colace sodium 100 mg oral [...] 0.5 mg, Injection, IV Push Slowly, Every 4 hours, PRN for Pain , Severe, Routine, 06/13/20 22:45:00EST Start Date: 06/13/20 Stop Date: 06/14/20 Status: Discontinued duloxetine 30 mg oral enteric coated capsule [...] 06/04/1910:46:00 EST, Syrup, [facility] 3, 30 mL By Mouth 3 times a day,PRN:Constipation, 175, cm, 06/03/19 20:50:00 EST, Height, 49.3, kg, ... Start Date: 06/04/19 Status: Ordered Lexapro 10 mg oral tablet 1 tablet = 10 mg, By Mouth, Daily in AM, # 30 tablet, 0 Refills, Maintenance, 06/16/19 9:33:00 EST,Tablet, [facility] #[id number], 176, cm, 06/16/19 6:59:00 EST, Height, 49, kg, 06/14/19 16:20:00 EST, Dry Weight Start Date: 06/16/19 Status: Ordered MiraLax oral powder for reconstitution = 17 Gm, By Mouth, Daily, dissolve in water before taking, # 255 Gm, 0 Refills, Maintenance, 06/04/19 11:10:00 EST, REC Powder, [facility] 3, 17 Gm By Mouth Daily,Instr:dissolve in [...] 0 Refills,Maintenance, 05/18/20 23:27:00 EST, DIS Tablet, [facility] #[id number], Partial fill upon patient request if the prescription is for a schedule II... Start Date: 05/18/20 Stop Date: 05/21/20 Status: Ordered ondansetron 4 mg oral tablet, disintegrating 1 tablet = 4 mg, By Mouth, Every 8 hours, PRN as needed for nausea/vomiting, # 10 tablet, 0 Refills, Maintenance, 06/14/20 0:24:00 EST, DIS Tablet, [facility]/pharmacy #[id number], Partial fill upon patient request if [...] 1 2 3 Oxygen Saturation [94-100 %] 97 % (06/14/20 1:00 AM) 100 % (06/13/20 10:49 PM) Pulse Rate [55-90 bpm] 87 bpm (06/14/20 1:00 AM) 103 bpm *H* (06/13/20 10:49 PM) Blood Pressure [90-138/55-84 mm Hg] 101/55mm Hg (06/14/20 1:00 AM) 100/61mm Hg (06/13/20 10:49 PM) Respiratory Rate [16-30 br/min] 18 br/min (06/14/20 1:00 AM) 22 br/min (06/13/20 10:49 PM) 16 br/min (06/13/20 10:47 PM) Temperature [96.8-100.4 DegF] 98.3 DegF (06/13/20 10:49 PM) Mode of Delivery (Oxygen) Room air (06/14/20 1:00 AM) Room air (06/13/20 10:49 PM) Blood pressure sites Arm, left (06/14/20 1:00 AM) Arm, left (06/13/20 10:49 PM) Temperature Route Oral (06/13/20 10:49 PM) Weight Obtained Via uto (06/13/20 10:49 PM) Dry Weight Obtained Via uto (06/13/20 10:49 PM) Social History Social History Type Response Smoking Status Current some day smo ker entered on: 02/04/15 Sex
--- OUTSIDE RECORDS SUMMARY | 2024-01-15 09:02 | XMS_ITS | Continuity of Care Document ---
Author Organization [facility] Address [address] [place] [id number]- Care Team Providers Care Gate Operator Name Role Phone Sara TRUJILLO, Cm Kunz Primary Care Physician [place] [facility] [place] Date(s): 11/15/22 - 11/15/[address] [address]- Discharge Disposition: A-D/C Walkout Attending Physician: Not [...] 08/01/22 10:37:00 EST, Route to Pharmacy Electronically, [facility], Partial fill upon patient [...] Ordered Secur-t 12?? Drainable Standard Wear Transparent #[id number] Secur-t 12?? Drainable Standard Wear Transparent #[id number], See Instructions, # 20 each, Refills 11, Tot. 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 Start Date: 11/03/21 Status: Ordered Therapeutic Multiple Vitamins with Minerals oral capsule 1 capsule, By Mouth, Daily, # 30 capsule, 0 Refills, Maintenance, 07/15/21 9:58:00 EST, Capsule, [facility], Partial fill upon patient request if the prescription is for a schedule II opioid drug., 1 capsule By Mouth Daily,x30 days, 175,... Start Date: 07/15/21 Stop Date: 08/14/21 Status: Ordered Problem List Condition Confirmation Course Effective Dates Status [facility] Informant Anoxic brain injury Confirmed Active GERD (gastroesophageal reflux disease) Confirmed Active JAZLYN (generalized anxiety disorder) Confirmed Active Hemorrhagic shock Confirmed Active Bladder injury Confirmed Active Neurogenic bladder disorder Confirmed Active TMJ dysfunction Confirmed Active Vital Signs Most recent to oldest [Reference Range]: 1 2 Height 178 cm (11/15/22 6:09 PM) 178 cm (11/15/22 5:33 PM) Weight 55 kg (11/15/22 6:09 PM) Oxygen Saturation [94-100 %] 98 % (11/15/22 5:33 PM) Pulse Rate [55-90 bpm] 39 bpm *L* (11/15/22 5:33 PM) Blood Pressure [90-138/55-84 mm Hg] 100/ 68mm Hg (11/15/22 5:33 PM) Mode of Delivery (Oxygen) Room air (11/15/22 5:33 PM) Blood pressure sites Arm, right (11/15/22 5:33 PM) Dry Weight 55 kg (11/15/22 6:09 PM) 55 kg (11/15/22 5:33 PM) Dry Weight Obtained Via Patient/family s tated (11/15/22 5:33 PM) Social History Social History Type Response Smoking Status Current some day smo ker entered on: 02/04/15 Sex Patient Care team information Care Team Personnel Name: Ashley Lewis RN Position: [facility] RN Member Role: Primary Care Nurse Name: Karl Church RN Position: [facility] RN Member Role: Primary Care Nurse Name: Jay Bush RN Position: [facility] ED RN W/OE and Tasks Member Role: Primary Care Nurse Name: Reanna Davies RN Position: [facility] AMB Nurse Member Role: Primary Care Nurse Name: Kita Mahajan RN Position: [facility] RN Member Role: Primary Care Nurse Name: Sobeida Long RN Position: [facility] RN Member Role: Primary Care Nurse Name: Shoshana Vasquez RN Position: [facility] RN Member Role: Primary Care Nurse Name: Antelmo Johnson RN Position: [facility] RN Member Role: Primary Care Nurse Name: Abigail Chen RN Position: [facility] RN Member Role: Primary Care Nurse Name: Poonam Sanchez RN Position: [facility] RN Member Role: Primary Care Nurse Name: Jonas Hampton RN Position: [facility] RN Member Role: Primary Care Nurse Name: Tiffany Buckley RN Position: [facility] RN Member Role: Primary Care Nurse Name: Arlet Ferraro RN Position: [facility] RN Member Role: Primary Care Nurse Name: Jennifer Anderson RN Position: [facility] RN Member Role: Primary Care Nurse Name: Stella Macias RN Position: [facility] HBO Wound Member Role: Primary Care Nurse Name: Harshad Agee RN Position: [facility] RN Member Role: Primary Care Nurse Name: Juan J Hinojosa RN Position: [facility] RN Member Role: Primary Care Nurse Name: Cm Ruiz MD Position: Reference Physician Member Role: PCP Address: Address: [address] [place] [address] Name: Esther Simmons Position: [facility] RN Member Role: Primary Care Nurse Name: Deepti Brown RN Position: [facility] RN Member Role: Primary Care Nurse Name: Carmelina Horta RN Position: [facility] RN Member Role: Primary Care Nurse Name: Sabrina Lobato RN Position: [facility] RN Member Role: Primary Care Nurse Name: Heaven Penn RN Position: [facility] RN Member Role: Primary Care Nurse Name: Mari Lira RN Position: [facility] RN Supv Member Role: Primary Care Nurse Name: Sho Vasquez RN Position: [facility] AMB Nurse Member Role: Primary Care Nurse Name: Alex Marmolejo RN Position: [facility] RN Member Role: Primary Care Nurse Name: Chantal Quezada Position: [facility] Outreach Member Role: Lifetime Consulting Physician Name: Angie Barry RN Position: [facility] RN Member Role: Primary Care Nurse Name: Rik Titus MD Position: [facility] Renal MD Member Role: Lifetime Consulting Physician Address: Address: [address] [place] [address] [facility] [place] [address]- Name: Shoshana Al RN Position: [facility] RN Member Role: Primary Care Nurse Name: Paula Douglas RN Position: [facility] RN Member Role: Primary Care Nurse Name: Sobeida Juarez RN Position: [facility] RN Member Role: Primary Care Nurse Name: Agnes Sam RN Position: [facility] RN Member Role: Primary Care Nurse Name: Arlet Campos RN Position: [facility] RN Member Role: Primary Care Nurse Name: Nusrat Salguero RN Position: [facility] RN Member Role: Primary Care Nurse Care Team Related Persons Name: MICKY ROSE Name: MADELEINE DAWN Address: home [address] [place] [address] Name: [facility] Address: home [address] [place] [address] Name: SANA VASQUEZ Address: home [address] [place] [address]
--- OUTSIDE RECORDS SUMMARY | 2024-01-15 09:02 | XMS_ITS | Continuity of Care Document ---
Author Organization [facility] ter Address [address] [place] [id number]- Care Team Providers Care Beef Lugger Name Role Phone Not on Staff, PCP Primary Care Physician Unavail able Encounter [facility] [place] Date(s[place] 08/15/20 - 08/15/[address] [address]- Encounter Diagnosis Jaw pain(Final) - 08/15/20 Difficulty speaking(Final) - 08/15/20 Discharge Disposition: A-D/C Home Attending Physician: Shaylee Talavera DO Admitting Physician: Shaylee Talavera DO Referring Physician: Not on Staff, Referring [...] 08/22/20 5:41:00 EDT, 08/15/20 5:41:00 EST, Tablet, [facility]/pharmacy #[id number], Partial fill upon patient request if [...] Start Date: 03/21/20 Status: Ordered Dilaudid Inj 1 mg, Injection, IV Push Slowly, Once, STAT, 08/15/20 17:01:00 EST, Stop date 08/15/20 17:01:00 EST Start Date: 08/15/20 Stop Date: 08/15/20 [...] 0 Refills, Maintenance, 06/04/1910:46:00 EST, Syrup, [facility] 3, 30 mL By Mouth 3 times a day,PRN:Constipation, 175, cm, 06/03/19 20:50:00 EST, Height, 49.3, kg, ... Start Date: 06/04/19 Status: Ordered Lexapro 10 mg oral tablet 1 tablet = 10 mg, By Mouth, Daily in AM, # 30 tablet, 0 Refills, Maintenance, 06/16/19 9:33:00 EST,Tablet, [facility] #[id number], 176, cm, 06/16/19 6:59:00 EST, Height, 49, kg, 06/14/19 16:20:00 EST, Dry Weight Start Date: 06/16/19 Status: Ordered MiraLax oral powder for reconstitution = 17 Gm, By Mouth, Daily, dissolve in water before taking, # 255 Gm, 0 Refills, Maintenance, 06/04/19 11:10:00 EST, REC Powder, [facility], 17 Gm By Mouth Daily,Instr:dissolve in water before taking, 175, cm, 06/03/19 20:50:00 EST, Heigh... Start Date: 06/04/19 Status: Ordered Neurontin 300 mg oral capsule 300 mg, 1, capsule, By Mouth, 3 times a day, # 180 capsule, Refills 0, Tot. Refills 0, Maintenance,06/04/19 10:45:00 EST, Route to Pharmacy Electronically, [facility], 175, cm, 06/03/19 [...] Refills, Maintenance, 08/15/20 5:41:00 EST, DIS Tablet, [facility]/pharmacy #[id number], Partial fill upon patient request if the prescription is for a schedule II opioid d... Start Date: 08/15/20 Status: Ordered ondansetron 4 mg oral tablet, disintegrating 1 tablet = 4 mg, By Mouth, Every 8 hours, PRN as needed for nausea/vomiting, # 9 tablet, 0 Refills,Maintenance, 05/18/20 23:27:00 EST, DIS Tablet, [facility] #[id number], Partial fill upon patient request if the [...] Refills, Maintenance, 06/16/19 11:41:00 EST, Tablet, [facility], 176, cm, 06/16/19 6:59:00 EST, Height, 49, kg, 06/14/19 16:20:00 EST, Dry Weight Start Date: 06/16/19 Stop Date: 06/21/19 Status: Ordered Zofran 4 mg oral tablet 1 tablet = 4 mg, By Mouth, Every 8 hours, PRN as needed for nausea/vomiting, # 9 tablet, 0 Refills,Maintenance, 07/10/20 20:03:00 EST, Tablet, [id number], Partial fill upon patient request if the prescription is for a schedule II opioid drug.... Start Date: 07/10/20 Status: Ordered Problem List Condition Effective Dates Status Health Status Inform ant Hemorrhagic shock(Confirmed) Active Bladder injury(Confirmed) Active Vital Signs Most recent to oldest [Reference Range]: 1 2 3 Height 175 cm (08/15/20 3:35 PM) Weight 55 kg (08/15/20 3:35 PM) Oxygen Saturation [94-100 %] 95 % (08/15/20 6:33 PM) 100 % (08/15/20 5:04 PM) 100 % (08/15/20 3:35 PM) Pulse Rate [55-90 bpm] 94 bpm *H* (08/15/20 6:33 PM) 105 bpm *H* (08/15/20 5:04 PM) 93 bpm *H* (08/15/20 3:35 PM) Blood Pressure [90-138/55-84 mm Hg] 131/84mm Hg (08/15/20 6:33 PM) 156/104mm Hg *H* (08/15/20 3:35 PM) 132/65mm Hg (08/15/20 3:08 PM) Respiratory Rate [16-30 br/min] 21 br/min (08/15/20 6:33 PM) 14 br/min *L* (08/15/20 5:04 PM) 20 br/min (08/15/20 3:35 PM) Temperature [96.8-100.4 DegF] 98.2 DegF (08/15/20 5:04 PM) 98.3 DegF (08/15/20 3:35 PM) 98.2 DegF (08/15/20 3:08 PM) Mode of Delivery (Oxygen) Room air (08/15/20 6:33 PM) Room air (08/15/20 3:35 PM) Room air (08/15/20 3:08 PM) Blood pressure sites Arm, left (08/15/20 6:33 PM) Arm, left (08/15/20 3:35 PM) Arm, left (08/15/20 3:08 PM) Temperature Route Oral (08/15/20 3:35 PM) Oral (08/15/20 3:08 PM) Dry Weight 55 kg (08/15/20 3:35 PM) Weight Obtained Via Patient/family state d (08/15/20 3:35 PM) Dry Weight Obtained Via Patient/family s tated (08/15/20 3:35 PM) Social History Social History Type Response Smoking Status Current some day smo ker entered on: 02/04/15 Sex
--- OUTSIDE RECORDS SUMMARY | 2024-01-15 09:02 | XMS_ITS | Continuity of Care Document ---
Author Organization [facility] Address [address] [place] [address]- Care Team Providers Care At Risk Paraprofessional Name Role Phone Sara TRUJILLO, Cm Kunz Primary Care Physician Encounter [facility] [place] Date(s): 10/13/21 - 11/12/21 [facility] [address] [place], [place] [address] Attending Physician: Alexander Jama Admitting Physician: AdmAlexander millard Referring Physician: AdmtrAlexander Allergies, Adverse Reactions, Alerts [...] Maintenance, 11/05/21 10:19:00 EDT, CR Tablet, [facility]/pharmacy #[id number], Partial fill upon patient request if the prescription is for a schedule II opioid drug., 175, cm, 10/29/21 14:02:00 EDT, He[facility]... Start Date: 11/05/21 Status: Ordered prochlorperazine 5 mg oral tablet 1 tablet = 5 mg, By Mouth, 3 times a day, PRN Nausea Start Date: 02/22/21 Status: Ordered Secur-t 12?? Drainable Standard Wear Transparent #[id number] Secur-t 12?? Drainable Standard Wear Transparent #[id number], See Instructions, # 20 each, Refills 11, [...] 0 Refills, Maintenance, 07/15/21 9:58:00 EST, Capsule, [facility], Partial fill upon patient request [...]
--- OUTSIDE RECORDS SUMMARY | 2024-01-15 09:02 | XMS_ITS | Continuity of Care Document ---
Author Organization [facility] ter Address [address] [place] [address]- Care Team Providers Care Industrial Machine Assembler Name Role Phone Sara TRUJILLO, Cm Kunz Primary Care Physician [place] [facility] [place] - 11/15/[address] [address] Discharge Disposition: A-D/C AMA Attending Physician: [...] 08/01/22 10:37:00 EST, Route to Pharmacy Electronically, [facility], Partial fill upon patient [...] Ordered Secur-t 12?? Drainable Standard Wear Transparent #[id number] Secur-t 12?? Drainable Standard Wear Transparent #[id number], See Instructions, # 20 each, Refills 11, Tot. 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 Start Date: 11/03/21 Status: Ordered Therapeutic Multiple Vitamins with Minerals oral capsule 1 capsule, By Mouth, Daily, # 30 capsule, 0 Refills, Maintenance, 07/15/21 9:58:00 EST, Capsule, [facility], Partial fill upon patient request if the prescription is for a schedule II opioid drug., 1 capsule By Mouth Daily,x30 days, 175,... Start Date: 07/15/21 Stop Date: 08/14/21 Status: Ordered Problem List Condition Confirmation Course Effective Dates Status [facility] atus Informant Anoxic brain injury Confirmed Active GERD (gastroesophageal reflux disease) Confirmed Active JAZLYN (generalized anxiety disorder) Confirmed Active Hemorrhagic shock Confirmed Active Bladder injury Confirmed Active Neurogenic bladder disorder Confirmed Active TMJ dysfunction Confirmed Active Results Radiology Reports * Exam Date Time Procedure Performing Provider Status 11/15/22 11:43 AM IR End of Case Report Au th (Verified) IR End of Case Report * Exam Date Time Procedure Performing Provider Status 11/15/22 11:43 AM IR Nephrostomy, Placement Auth (Verified) Notes: (IR Nephrostomy, Placement) Reason For Exam: Left PCN insert;Other: IR Nephrostomy, Placement Patient: TOBIAS VASQUEZ Study Date: 11/15/2022 Performing: Leobardo Truong DO Referring: : 1990 Age: [age] Gender: MALE PROCEDURE: Genitourinary catheter placement Procedural Personnel Attending physician(s): Leobardo Truong DO Fellow physician(s): None Resident physician(s): None Advanced practice provider(s): None 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 IMPRESSION: Left nephrostomy tube placement. Plan: Maintain external drainage until PCNL procedure. PROCEDURE SUMMARY - Target organ: Unilateral citizen potawatomi kidney - Image-guided placement of genitourinary catheter(s) - Additional procedure(s): None PROCEDURE DETAILS: Pre-procedure Consent: Informed consent for the procedure including risks, benefits and alternatives was obtained and time-out was performed prior to the procedure. Preparation: The site was prepared and draped using maximal sterile barrier technique including cutaneous antisepsis. Anesthesia/sedation Level of anesthesia/sedation: Moderate sedation (conscious sedation) Anesthesia/sedation administered by: Independent trained observer under attending supervision with continuous monitoring of the patient's level of consciousness and physiologic status Total intra-service sedation time (minutes): 30 Genitourinary catheter placement Side:Left citizen potawatomi Local anesthesia was administered. A needle was advanced into a lower pole calyx under ultrasound and fluoroscopy guidance. A wire was advanced, the tract was serially dilated and a nephrostomy tube was placed. Contrast injection was performed. Genitourinary catheter placed: Critical Media Resolve 8.5 Fr Lot#[id number] Findings: Filling defects within the renal pelvis and all calices as well as possible free-floating stones in the proximal ureter. No contrast to the bladder. No extravistaion. External catheter securement: Non-absorbable suture Contrast Contrast agent: Omnipaque 300 Contrast volume (mL): 10 Radiation Dose Fluoroscopy time (minutes): 2.7 Reference air kerma (mGy): 8 Kerma area product (uGy-m2): 134.15 Additional Details Additional description of procedure: None Registry event: V/3/f Device used: Not applicable Equipment details: None Specimens removed: None. A sample was not sent for analysis. Estimated blood loss (mL): Less than 10 Standardized report: [email or web address]_GUCatheterPlacement_v3.1 Attestation Signer name: Leobardo Truong I attest that I was present for the entire procedure. I reviewed the stored images and agree with the report as written. Dictated By: Leobardo Truong DO Dictated Date/Time: 11/15/22 11:43 a Reviewed By: Leobardo Truong DO Signed By: Leobardo Truong DO Signed Date/Time: 11/15/22 11:43 am Transcribed By: [facility] Transcribed Date/Time: 11/15/22 11:43 am Vital Signs Most recent to oldest [Reference Range]: 1 2 Height 167 cm (11/15/22 11:07 AM) 167 cm (11/15/22 9:50 AM) Weight 57 kg (11/15/22 11:07 AM) 57 kg (11/15/22 9:50 AM) Oxygen Saturation [94-100 %] 99 % (11/15/22 9:44 AM) Pulse Rate [55-90 bpm] 69 bpm (11/15/22 9:44 AM) Blood Pressure [90-138/55-84 mm Hg] 113/ 58mm Hg (11/15/22 9:44 AM) Respiratory Rate [16-30 br/min] 18 br/mi n (11/15/22 9:44 AM) Temperature [96.8-100.4 DegF] 97.6 DegF (11/15/22 9:44 AM) Mode of Delivery (Oxygen) Room air (11/15/22 9:44 AM) Blood pressure sites Arm, right (11/15/22 9:44 AM) Temperature Route Oral (11/15/22 9:44 AM) Dry Weight 57 kg (11/15/22 9:50 AM) Social History Social History Type Response Smoking Status Current some day smo ker entered on: 02/04/15 Sex Hospital Progress note * Dejuan Orellana RN: SIGN, MODIFY, SIGN, MODIFY, SIGN, MODIFY, PERFORM, SIGN, VERIFY Event Display: Progress Note Hospital Authored Date: Patient: TOBIAS VASQUEZ Age: 32 years Sex: Male : 1990 Associated Diagnoses: None Author: Dejuan Orellana RN Findings Evaluation Patient arrived to unit, VSS. #22 IV inserted in left AC, labs drawn, IV fluids started. IV flushesok but is positional, procedure area aware and ok with still taking patient since IV team did not come in time to try for another. Medical daystay assessment, home med review, and pre-procedure checklist completed. Resting comfortably awaiting procedure. Will continue to monitor. . * Dejuan Orellana RN: PERFORM Event Display: Progress Note Hospital Authored Date: Patient returned from procedure. Patient verbally insulting staff and screaming that he is in pain and attempting to jump off stretcher. Procedure area notified and aware. VSS. PCN tube present to left flank, dressing CDI. Patent and draining blood tinged urine. * Dejuan Orellana RN: PERFORM Event Display: Progress Note Hospital Authored Date: Patient stating either get me something for pain or get me out of here so I can go buy drugs on the street * Dejuan Orellana RN: PERFORM Event Display: Progress Note Hospital Authored Date: Patient removed own IV. Ripped off bag/end portion of PCN tube, MD and procedure area made aware. Verbally abusive to staff. Still demanding pain meds. Made multiple attempts to jump off of stretcher. Security called for support. Mother came to bedside. Procedure area staff also came to bedside. Patient refused to let IR staff replace end portion of PCN tube. Patient educated on dangers of removing PCN tube/not letting urine drain. Repeatedly stated I don't care I want this out of me . Patientagreed to only let unclamped tube drain on to towels. After speaking with doctor, plan was to remove PCN tube later today once anesthesia was available. Patient accepted plan but approx 20 min later got himself into a wheelchair and wheeled himself off unit. Refused to sign AMA paperwork. Stated I'm not signing shit and that he was going down to the ED. Tube was unclamped and draining onto ground upon patient leaving. Procedure area made aware. 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 IMPRESSION: Left nephrostomy tube placement. Plan: Maintain external drainage until PCNL procedure. PROCEDURE SUMMARY - Target organ: Unilateral citizen potawatomi kidney - Image-guided placement of genitourinary catheter(s) - Additional procedure(s): None PROCEDURE DETAILS: Pre-procedure Consent: Informed consent for the procedure including risks, benefits and alternatives was obtained and time-out was performed prior to the procedure. Preparation: The site was prepared and draped using maximal sterile barrier technique including cutaneous antisepsis. Anesthesia/sedation Level of anesthesia/sedation: Moderate sedation (conscious sedation) Anesthesia/sedation administered by: Independent trained observer under attending supervision with continuous monitoring of the patient's level of consciousness and physiologic status Total intra-service sedation time (minutes): 30 Genitourinary catheter placement Side:Left citizen potawatomi Local anesthesia was administered. A needle was advanced into a lower pole calyx under ultrasound and fluoroscopy guidance. A wire was advanced, the tract was serially dilated and a nephrostomy tube was placed. Contrast injection was performed. Genitourinary catheter placed: ZapMe 8.5 Fr Lot#[id number] Findings: Filling defects within the renal pelvis and all calices as well as possible free-floating stones in the proximal ureter. No contrast to the bladder. No extravistaion. External catheter securement: Non-absorbable suture Contrast Contrast agent: Omnipaque 300 Contrast volume (mL): 10 Radiation Dose Fluoroscopy time (minutes): 2.7 Reference air kerma (mGy): 8 Kerma area product (uGy-m2): 134.15 Additional Details Additional description of procedure: None Registry event: V/3/f Device used: Not applicable Equipment details: None Specimens removed: None. A sample was not sent for analysis. Estimated blood loss (mL): Less than 10 Standardized report: SIR_GUCatheterPlacement_v3.1 Attestation Signer name: Leobardo Truong I attest that I was present for the entire procedure. I reviewed the stored images and agree with the report as written. Dictated By: Leobardo Truong DO Dictated Date/Time: 11/15/22 11:43 a Reviewed By: Leobardo Truong DO Signed By: Leobardo Truong DO Signed Date/Time: 11/15/22 11:43 am Transcribed By: [facility] Transcribed Date/Time: 11/15/22 11:43 am Patient Care team information Care Team Personnel Name: Ashley Lewis RN Position: [facility] RN Member Role: Primary Care Nurse Name: Karl Church RN Position: S RN Member Role: Primary Care Nurse Name: Jay Bush RN Position: [facility] ED RN W/OE and Tasks Member Role: Primary Care Nurse Name: Reanna Davies RN Position: [facility] AMB Nurse Member Role: Primary Care Nurse Name: Kita Mahajan RN Position: [facility] RN Member Role: Primary Care Nurse Name: Sobeida Long RN Position: [facility] RN Member Role: Primary Care Nurse Name: Shoshana Vasquez RN Position: [facility] RN Member Role: Primary Care Nurse Name: Antelmo Johnson RN Position: [facility] RN Member Role: Primary Care Nurse Name: Abigail Chen RN Position: [facility] RN Member Role: Primary Care Nurse Name: Poonam Sanchez RN Position: [facility] RN Member Role: Primary Care Nurse Name: Jonas Hampton RN Position: [facility] RN Member Role: Primary Care Nurse Name: Tiffany Buckley RN Position: [facility] RN Member Role: Primary Care Nurse Name: Arlet Ferraro RN Position: [facility] RN Member Role: Primary Care Nurse Name: Jennifer Anderson RN Position: [facility] RN Member Role: Primary Care Nurse Name: Stella Macias RN Position: [facility] HBO Wound Member Role: Primary Care Nurse Name: Harshad Agee RN Position: [facility] RN Member Role: Primary Care Nurse Name: Juan J Hinojosa RN Position: [facility] RN Member Role: Primary Care Nurse Name: Cm Ruiz MD Position: Reference Physician Member Role: PCP Address: Address: [address] [place] [address] Name: Esther Simmons Position: [facility] RN Member Role: Primary Care Nurse Name: Deepti Brown RN Position: [facility] RN Member Role: Primary Care Nurse Name: Carmelina Horta RN Position: [facility] RN Member Role: Primary Care Nurse Name: Sabrina Lobato RN Position: [facility] RN Member Role: Primary Care Nurse Name: Heaven Penn RN Position: [facility] RN Member Role: Primary Care Nurse Name: Mari Lira RN Position: [facility] RN Supgo Member Role: Primary Care Nurse Name: Sho Vasquez RN Position: [facility] AMB Nurse Member Role: Primary Care Nurse Name: Alex Marmolejo RN Position: [facility] RN Member Role: Primary Care Nurse Name: Chantal Quezada Position: [facility] Outreach Member Role: Lifetime Consulting Physician Name: Angie Barry RN Position: [facility] RN Member Role: Primary Care Nurse Name: Rik Titus MD Position: [facility] Renal MD Member Role: Lifetime Consulting Physician Address: Address: [address] [place] [address] [facility] [place], [place] [address] Name: Shoshana Al RN Position: [facility] RN Member Role: Primary Care Nurse Name: Paula Douglas RN Position: [facility] RN Member Role: Primary Care Nurse Name: Sobeida Juarez RN Position: [facility] SN RN Member Role: Primary Care Nurse Name: Agnes Sam RN Position: [facility] RN Member Role: Primary Care Nurse Name: Arlet Campos RN Position: [facility] RN Member Role: Primary Care Nurse Name: Nusrat Salguero RN Position: [facility] Onco RN Member Role: Primary Care Nurse Care Team Related Persons Name: MICKY ROSE Name: MADELEINE DAWN Address: home [address] [place] [address] Name: [facility] [employer] [facility] Address: home [address] [place] [address] Name: SANA VASQUEZ Address: home [address] [place] [address]
--- OUTSIDE RECORDS SUMMARY | 2024-01-15 09:02 | XMS_ITS | Continuity of Care Document ---
Author Organization [facility] Address [address] [place] [address]- Care Team Providers Care Security Controls Assessor Name Role Phone Sara TRUJILLO, Cm Kunz Primary Care Physician Encounter [facility] [place] Date(s): 09/22/21 - 11/12/21 [facility] [address] [place], [place] [address] Attending Physician: Gabbie TRUJILLO, Kaushik Castillo Admitting Physician: Kaushik Cartwright MD Referring Physician: Sheridan Moore DO Allergies, [...] Refills, Maintenance, 11/05/21 10:19:00 EDT, CR Tablet, [facility]/pharmacy #[id number], Partial fill upon patient request if the prescription is for a schedule II opioid drug., 175, cm, 10/29/21 14:02:00 EDT, Heig... Start Date: 11/05/21 Status: Ordered prochlorperazine 5 mg oral tablet 1 tablet = 5 mg, By Mouth, 3 times a day, PRN Nausea Start Date: 02/22/21 Status: Ordered Secur-t 12?? Drainable Standard Wear Transparent #[id number] Secur-t 12?? Drainable Standard Wear Transparent #[id number], See Instructions, # 20 each, Refills 11, [...] 0 Refills, Maintenance, 07/15/21 9:58:00 EST, Capsule, [facility], Partial fill upon patient request [...]
--- OUTSIDE RECORDS SUMMARY | 2024-01-15 09:02 | XMS_ITS | Continuity of Care Document ---
Author Organization [facility] Address Unknown Care Team Providers Care Fire Boat Engineer Name Role Phone Charlie TRUJILLO, Dave Phelps Primary Care Physician Encounter [facility] [place] R [id number] Date(s): 01/01/21 - 05/01/21 [facility] Attending Physician: Not on Staff, Attending MD Referring Physician: Robert Lowry MD Allergies, Adverse Reactions, Alerts Substance Reaction [...]
--- OUTSIDE RECORDS SUMMARY | 2024-01-15 09:02 | XMS_ITS | Continuity of Care Document ---
Author Organization [facility] ter Address [address] [place] [address]- Care Team Providers Care Meal Cook Name Role Phone Dave Guerra MD Primary Care Physician Encounter [facility] [place] Date(s): 03/30/21 - 03/30/[address] [address]- Encounter Diagnosis Abdominal pain(Final) - 03/30/21 UTI (urinary tract infection)(Final) - 03/30/21 Discharge Disposition: A-D/C AMA Attending Physician: Srinivasa Hernandez MD Admitting Physician: Srinivasa Hernandez MD Referring Physician: Not on Staff, Referring [...] mg, Injection, IV Push Slowly, Once, STAT, 03/30/21 8:00:00 EDT, Stop date 03/30/21 8:00:00 EDT Start Date: 03/30/21 Stop Date: 03/30/21 Status: Completed docusate sodium 100 mg oral [...] Neurogenic bladder disorder(Confirmed) Active TMJ dysfunction(Confirmed) Active Vital Signs Most recent to oldest [Reference Range]: 1 2 3 Oxygen Saturation [94-100 %] 98 % (03/30/21 9:53 AM) 98 % (03/30/21 4:59 AM) 99 % (03/30/21 1:11 AM) Pulse Rate [55-90 bpm] 94 bpm *H* (03/30/21 9:53 AM) 76 bpm (03/30/21 8:10 AM) 82 bpm (03/30/21 4:59 AM) Blood Pressure [90-138/55-84 mm Hg] 131/74mm Hg (03/30/21 9:53 AM) 117/60mm Hg (03/30/21 8:10 AM) 125/65mm Hg (03/30/21 4:59 AM) Respiratory Rate [16-30 br/min] 18 br/min (03/30/21 9:53 AM) 16 br/min (03/30/21 8:11 AM) 14 br/min *L* (03/30/21 8:10 AM) Temperature [96.8-100.4 DegF] 98.5 DegF (03/30/21 4:59 AM) 98.3 DegF (03/30/21 1:11 AM) Mode of Delivery (Oxygen) Room air (03/30/21 9:53 AM) Room air (03/30/21 4:59 AM) Room air (03/30/21 1:11 AM) Temperature Route Oral (03/30/21 4:59 AM) Oral (03/30/21 1:11 AM) Social History Social History Type Response Smoking Status Current some day smo ker entered on: 02/04/15 Sex
--- OUTSIDE RECORDS SUMMARY | 2024-01-15 09:02 | XMS_ITS | Continuity of Care Document ---
Author Organization [facility] Address [address] [place] [address]- Care Team Providers Care Cigarette Carton Sealer Name Role Phone Sara TRUJILLO, Cm Kunz Primary Care Physician [place] [facility] [place] 04/06/22 [facility] [address] [place], [place] [address] Attending Physician: Osei Ahuja MD [...] Maintenance, 11/05/21 10:19:00 EDT, CR Tablet, [facility]/pharmacy #[id number], Partial fill upon patient request [...] Ordered Secur-t 12?? Drainable Standard Wear Transparent #[id number] Secur-t 12?? Drainable Standard Wear Transparent #[id number], See Instructions, # 20 each, Refills 11, [...] 0 Refills, Maintenance, 07/15/21 9:58:00 EST, Capsule, [facility], Partial fill upon patient request if the prescription is for a schedule II opioid drug., 1 capsule By Mouth Daily,x30 days, 175,... Start Date: 07/15/21 Stop Date: 08/14/21 Status: Ordered Problem List Condition Confirmation Course Effective Dates Status [facility] Informant Anoxic brain injury Confirmed Active Hemorrhagic shock Confirmed Active Bladder injury Confirmed Active Neurogenic bladder disorder Confirmed Active TMJ dysfunction Confirmed Active Social History Social History Type Response Smoking Status Current some day smo ker entered on: 02/04/15 Sex Patient Care team information Personnel Name: Sara TRUJILLO, Cm Kunz Address: Address: [address] [place] [id number]
--- OUTSIDE RECORDS SUMMARY | 2024-01-15 09:02 | XMS_ITS | Continuity of Care Document ---
Author Organization [facility] Address Unknown Care Team Providers Care Certified Nurse Aide Name Role Phone Charlie TRUJILLO, Dave Phelps Primary Care Physician En[place] [facility] [place] Date(s): 09/17/21 - 10/27/21 [facility] Attending Physician: Nano Rivera MD Referring Physician: Roberto Alexander MD, I Allergies, [...] OR ACETAMINOPHEN Start Date: 02/22/21 Status: Ordered prochlorperazine 5 [...] 0 Refills, Maintenance, 07/15/21 9:58:00 EST, Capsule, [facility], Partial fill upon patient [...]
--- OUTSIDE RECORDS SUMMARY | 2024-01-15 09:02 | XMS_ITS | Continuity of Care Document ---
Author Organization [facility] Address [address] [place] [address]- Care Team Providers Care Astrobiologist Name Role Phone Not on Staff, PCP Primary Care Physician Unavail able Encounter [facility] [place] Date(s): 02/21/21 - 02/22/[address] [address] Encounter Diagnosis Complicated UTI (urinary tract infection)(Final) - 02/22/21 Discharge Disposition: A-D/C AMA Attending Physician: Luis Wiley MD Admitting Physician: Uday Reyes MD Referring Physician: Not on Staff, Referring [...] patient refuses stating dont bother me. Medications Bactrim DS 800 mg-160 mg oral tablet 1 tablet, By Mouth, 2 times a day, for 6 days, # 12 tablet, 0 Refills, Acute 02/28/21 15:57:00 EDT,02/22/21 15:57:00 EDT, Tablet, [facility]/pharmacy #[id number], Partial fill upon patient request if the prescription is for a schedule II opioid drug., 1 tablet By... Start Date: 02/22/21 Stop Date: 02/28/21 Status: Ordered Dilaudid Inj 2 mg, Injection, IV Push Slowly, Every 4 hours, PRN for Pain , Severe, Routine, 02/22/21 0:31:00 EDT Start Date: 02/22/21 Stop Date: 03/01/21 Status: Ordered Dilaudid Inj 1 mg, Injection, IV Push Slowly, Every 4 hours, PRN for Pain , Moderate, Routine, 02/22/21 0:31:00 EDT Start Date: 02/22/21 Stop Date: 03/01/21 Status: Ordered docusate sodium 100 mg oral tablet 1 tablet = 100 mg, By Mouth, 2 times a day, PRN for constipation, 0 Refills, Maintenance, 02/22/21 14:35:00 EDT, Tablet, Partial fill upon patient request if the prescription is for a schedule II opioid drug. Start Date: 02/22/21 Status: Ordered gabapentin 400 mg oral capsule 800 mg, Capsule, By Mouth, 02/22/21 15:00:00 EDT Start Date: 02/22/21 Stop Date: 02/22/21 Status: Completed LORazepam 0.5 mg oral tablet 1 tablet [...] 3 Oxygen Saturation [94-100 %] 99 % (02/22/21 8:00 AM) 97 % (02/22/21 1:01 AM) 100 % (02/22/21 1:00 AM) Pulse Rate [55-90 bpm] 66 bpm (02/22/21 8:00 AM) 88 bpm (02/22/21 1:01 AM) 79 bpm (02/22/21 1:00 AM) Blood Pressure [90-138/55-84 mm Hg] 130/74mm Hg (02/22/21 8:00 AM) 110/68mm Hg (02/22/21 1:01 AM) 126/80mm Hg (02/22/21 1:00 AM) Respiratory Rate [16-30 br/min] 18 br/min (02/22/21 1:17 PM) 18 br/min (02/22/21 1:17 PM) 18 br/min (02/22/21 8:53 AM) Temperature [96.8-100.4 DegF] 98.7 DegF (02/22/21 8:00 AM) 98.6 DegF (02/22/21 1:01 AM) 98.4 DegF (02/22/21 1:00 AM) Mode of Delivery (Oxygen) Room air (02/22/21 8:00 AM) Room air (02/22/21 1:01 AM) Room air (02/21/21 11:05 PM) Blood pressure sites Arm, right (02/22/21 8:00 AM) Arm, left (02/21/21 9:30 PM) Temperature Route Oral (02/22/21 8:00 AM) Oral (02/22/21 1:01 AM) Oral (02/21/21 11:05 PM) Social History Social History Type Response Smoking Status Current some day smo ker entered on: 02/04/15 Sex
--- OUTSIDE RECORDS SUMMARY | 2024-01-15 09:02 | XMS_ITS | Continuity of Care Document ---
Author Organization [facility] Address Unknown Care Team Providers Care Senior Administrative Services Officer Name Role Phone Charlie TRUJILLO, Dave Phelps Primary Care Physician [place] [id number] Date(s): 04/01/21 - 05/01/21 [facility] Attending Physician: Alexander Jama Admitting Physician: Alexander [...]
--- OUTSIDE RECORDS SUMMARY | 2024-01-15 09:02 | XMS_ITS | Continuity of Care Document ---
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 Start Date: 05/18/20 Stop Date: 05/25/20 Status: Ordered Colace sodium 100 mg oral [...] 06/04/1910:46:00 EST, Syrup, [facility], 30 mL By Mouth 3 times a day,PRN:Constipation, 175, cm, 06/03/19 20:50:00 EST, Height, 49.3, kg, ... Start Date: 06/04/19 Status: Ordered Lexapro 10 mg oral tablet 1 tablet = 10 mg, By Mouth, Daily in AM, # 30 tablet, 0 Refills, Maintenance, 06/16/19 9:33:00 EST,Tablet, [facility] #[id number], 176, cm, 06/16/19 6:59:00 EST, Height, 49, kg, 06/14/19 16:20:00 EST, Dry Weight Start Date: 06/16/19 Status: Ordered MiraLax oral powder for reconstitution = 17 Gm, By Mouth, Daily, dissolve in water before taking, # 255 Gm, 0 Refills, Maintenance, 06/04/19 11:10:00 EST, REC Powder, [facility], 17 Gm By Mouth Daily,Instr:dissolve in water before taking, 175, cm, 06/03/19 20:50:00 EST, Heigh... Start Date: 06/04/19 Status: Ordered Neurontin 300 mg oral capsule 300 mg, 1, capsule, By Mouth, 3 times a day, # 180 capsule, Refills 0, Tot. Refills 0, Maintenance,06/04/19 10:45:00 EST, Route to Pharmacy Electronically, [facility], 175, cm, 06/03/19 20:50:00 [...] 0 Refills,Maintenance, 05/18/20 23:27:00 EST, DIS Tablet, [facility] #[id number], Partial fill upon patient request if the prescription is for a schedule II... Start Date: 05/18/20 Stop Date: 05/21/20 Status: Ordered oxyCODONE 10 mg oral tablet 1 tablet = 10 mg, By Mouth, Every 4 hours, PRN as needed for pain, 0 Refills, Maintenance, :55:00 EDT, Tablet, Partial fill upon patient request Start Date: 02/19/20 Status: Ordered OxyCODONE IR Tablet 10 mg, Tablet, By Mouth, Once, STAT, 05/18/20 22:24:00 EST, Stop date 05/18/20 22:24:00 EST Start Date: 05/18/20 Stop Date: 05/18/20 Status: Completed Senna By Mouth, 0 Refills, Maintenance, 05/28/19 23:46:00 EST Start Date: 05/28/19 Status: Ordered Zofran 4 mg oral tablet 1 tablet = 4 mg, By Mouth, Every 8 hours, PRN Nausea & Vomiting, # 15 tablet, 0 Refills, Maintenance, 06/16/19 11:41:00 EST, Tablet, [facility], 176, cm, 06/16/19 6:59:00 EST, Height, 49, kg, 06/14/19 16:20:00 EST, Dry Weight Start Date: 06/16/19 Stop Date: 06/21/19 Status: Ordered Problem List Condition Effective Dates Status Health Status Inform ant Hemorrhagic shock(Confirmed) Active Bladder injury(Confirmed) Active Vital Signs Most recent to oldest [Reference Range]: 1 2 3 Oxygen Saturation [94-100 %] 98 % (05/18/20 11:49 PM) 98 % (05/18/20 10:24 PM) 98 % (05/18/20 8:01 PM) Pulse Rate [55-90 bpm] 92 bpm *H* (05/18/20 11:49 PM) 95 bpm *H* (05/18/20 10:24 PM) 98 bpm *H* (05/18/20 8:01 PM) Blood Pressure [90-138/55-84 mm Hg] 104/67mm Hg (05/18/20 11:49 PM) 129/83mm Hg (05/18/20 10:24 PM) 117/74mm Hg (05/18/20 8:01 PM) Respiratory Rate [16-30 br/min] 17 br/min (05/18/20 11:49 PM) 18 br/min (05/18/20 10:27 PM) 20 br/min (05/18/20 10:24 PM) Temperature [96.8-100.4 DegF] 97.4 DegF (05/18/20 11:49 PM) 97.7 DegF (05/18/20 10:24 PM) 97.4 DegF (05/18/20 8:01 PM) Mode of Delivery (Oxygen) Room air (05/18/20 11:49 PM) Room air (05/18/20 10:24 PM) Room air (05/18/20 8:01 PM) Temperature Route Oral (05/18/20 11:49 PM) Oral (05/18/20 10:24 PM) Oral (05/18/20 8:01 PM) Social History Social History Type Response Smoking Status Current some day smo ker entered on: 02/04/15 Sex
--- OUTSIDE RECORDS SUMMARY | 2024-01-15 09:02 | XMS_ITS | Continuity of Care Document ---
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 Drainable Standard [facility] #[id number] Secur-t 12?? Drainable Standard Wear [facility]parent #[id number], See Instructions, # 20 each, Refills 11, [...] Maintenance, 07/15/21 9:58:00 EST, Capsule, [facility], Partial fill upon patient request [...] oldest [Reference Range]: 1 Height 175 cm (10/29/21 2:02 PM) Weight 55 kg (10/29/21 2:02 PM) Pulse Rate [55-90 bpm] 97 bpm *H* (10/29/21 2:02 PM) Body Mass Index [18.5-24.99] 17.96 *L* (10/29/21 2:02 PM) Blood Pressure [90-138/55-84 mm Hg] 106/ 70mm Hg (10/29/21 2:02 PM) Temperature [96.8-100.4 DegF] 97.9 DegF (10/29/21 2:02 PM) Social History Social History Type Response Smoking Status Current some day smo ker entered on: 02/04/15 Sex
--- OUTSIDE RECORDS SUMMARY | 2024-01-15 09:02 | XMS_ITS | Continuity of Care Document ---
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 Name Role Phone Not on Staff, PCP Primary Care Physician Unavail able Encounter [facility] [place] Date(s): 12/27/20 - 12/27/[address] [address]- Encounter Diagnosis UTI (urinary tract infection)(Final) - 12/27/20 Discharge Disposition: A-D/C Home Attending Physician: Rg Bustamante MD Admitting Physician: Rg Bustamante MD Referring Physician: Not on Staff, Referring [...] 1 mg, Injection, IV Push Slowly, Every 15 minutes for 3 doses/times, PRN for Pain , Moderate, and SBP greater than 100, STAT, 12/27/20 13:30:00 EDT, Stop date Limited # of times Start Date: 12/27/20 Stop Date: 12/28/20 Status: Discontinued duloxetine 30 mg oral enteric coated capsule 1 capsule = 30 mg, By Mouth, Daily, do not crush or chew, 0 Refills, Maintenance, 02/19/20 9:56:00 EDT, CR Capsule Start Date: 02/19/20 Status: Ordered lactulose 10 gm/15 ml oral syrup 30 mL = 20 Gm, By Mouth, 3 times a day, PRN Constipation, # 30 mL, 0 Refills, Maintenance, 06/04/1910:46:00 EST, Syrup, [facility], 30 mL By Mouth 3 times a day,PRN:Constipation, 175, cm, 06/03/19 20:50:00 EST, Height, 49.3, kg, ... Start Date: 06/04/19 Status: Ordered Lexapro 10 mg oral tablet 1 tablet = 10 mg, By Mouth, Daily in AM, # 30 tablet, 0 Refills, Maintenance, 06/16/19 9:33:00 EST,Tablet, [id number], 176, cm, 06/16/19 6:59:00 EST, Height, 49, kg, 06/14/19 16:20:00 EST, Dry Weight Start Date: 06/16/19 Status: Ordered MiraLax oral powder for reconstitution = 17 Gm, By Mouth, Daily, dissolve in water before taking, # 255 Gm, 0 Refills, Maintenance, 06/04/19 11:10:00 EST, REC Powder, [facility], 17 Gm By Mouth Daily,Instr:dissolve in water before taking, 175, cm, 06/03/19 20:50:00 EST, Heigh... Start Date: 06/04/19 Status: Ordered Neurontin 300 mg oral capsule 300 mg, 1, capsule, By Mouth, 3 times a day, # 180 capsule, Refills 0, Tot. Refills 0, Maintenance,06/04/19 10:45:00 EST, Route to Pharmacy Electronically, [facility], 175, cm, 06/03/19 20:50:00 [...] Refills, Maintenance, 08/15/20 5:41:00 EST, DIS Tablet, [facility] #[id number], Partial fill upon patient request if the prescription is for a schedule II opioid d... Start Date: 08/15/20 Status: Ordered ondansetron 4 mg oral tablet, disintegrating 1 tablet = 4 mg, By Mouth, Every 8 hours, PRN as needed for nausea/vomiting, # 9 tablet, 0 Refills,Maintenance, 05/18/20 23:27:00 EST, DIS Tablet, [facility] #[id number], Partial fill upon patient request if the prescription is for a schedule II... Start Date: 05/18/20 Stop Date: 05/21/20 Status: Ordered ondansetron 4 mg oral tablet, disintegrating 1 tablet = 4 mg, By Mouth, Every 8 hours, PRN as needed for nausea/vomiting, # 10 tablet, 0 Refills, Maintenance, 06/14/20 0:24:00 EST, DIS Tablet, [facility] #[id number], Partial fill upon patient request if [...] 0 Refills, Maintenance, 06/16/19 11:41:00 EST, Tablet, [facility], 176, cm, 06/16/19 6:59:00 EST, Height, 49, kg, 06/14/19 16:20:00 EST, Dry Weight Start Date: 06/16/19 Stop Date: 06/21/19 Status: Ordered Zofran 4 mg oral tablet 1 tablet = 4 mg, By Mouth, Every 8 hours, PRN as needed for nausea/vomiting, # 9 tablet, 0 Refills,Maintenance, 07/10/20 20:03:00 EST, Tablet, [facility]acy #[id number], Partial fill upon patient request if the prescription is for a schedule II opioid drug.... Start Date: 07/10/20 Status: Ordered Problem List Condition Effective Dates Status Health Status Inform ant Hemorrhagic shock(Confirmed) Active Bladder injury(Confirmed) Active Vital Signs Most recent to oldest [Reference Range]: 1 2 3 Oxygen Saturation [94-100 %] 96 % (12/27/20 2:35 PM) 94 % (12/27/20 1:13 PM) 100 % (12/27/20 11:44 AM) Pulse Rate [55-90 bpm] 95 bpm *H* (12/27/20 2:35 PM) 102 bpm *H* (12/27/20 1:13 PM) 97 bpm *H* (12/27/20 11:44 AM) Blood Pressure [90-138/55-84 mm Hg] 119/48mm Hg (12/27/20 2:35 PM) 111/64mm Hg (12/27/20 1:13 PM) 101/86mm Hg (12/27/20 11:44 AM) Respiratory Rate [16-30 br/min] 18 br/min (12/27/20 2:45 PM) 19 br/min (12/27/20 2:35 PM) 12 br/min *L* (12/27/20 2:15 PM) Temperature [96.8-100.4 DegF] 98.6 DegF (12/27/20 2:35 PM) 98.5 DegF (12/27/20 11:44 AM) Mode of Delivery (Oxygen) Room air (12/27/20 2:35 PM) Room air (12/27/20 1:13 PM) Room air (12/27/20 11:44 AM) Blood pressure sites Arm, right (12/27/20 2:35 PM) Arm, right (12/27/20 1:13 PM) Arm, right (12/27/20 11:44 AM) Temperature Route Oral (12/27/20 2:35 PM) Oral (12/27/20 11:44 AM) Social History Social History Type Response Smoking Status Current some day smo ker entered on: 02/04/15 Sex
--- OUTSIDE RECORDS SUMMARY | 2024-01-15 09:02 | XMS_ITS | Continuity of Care Document ---
Author Organization [facility] ter Address [address] [place] [id number] Care Team Providers Care Director Digital Marketing Name Role Phone Sara TRUJILLO, Cm Kunz Primary Care Physician Encounter [facility] [place] Date(s): 06/01/22 - 06/02/[address] [id number] Discharge Disposition: A-D/C AMA Attending Physician: Arlet Argueta MD Admitting Physician: Arlet Argueta MD Referring Physician: Arlet Argueta MD Allergies, Adverse Reactions, Alerts Substance Reaction Severity Status morphine 1 Active linezolid Hives Active Compazine Active 1sweats Immunizations Given and Recorded Vaccine [...] patient refuses stating dont bother me. Medications acetaminophen 500 mg oral tablet 2 tablet = 1,000 mg, By Mouth, Every 8 hours, PRN for pain, for 15 days, # 90 tablet, 0 Refills, Acute 06/16/22 7:18:00 EST, 06/01/22 7:18:00 EST, Tablet, [facility], Partial fill upon patient request if the prescription is for a schedul... Start Date: 06/01/22 Stop Date: 06/16/22 Status: Ordered aspirin 325 mg oral delayed release tablet 325 mg, 1, tablet, By Mouth, Daily, # 30 tablet, Refills 0, Tot. Refills 0, Maintenance, 06/01/22 7:18:00 EST, Route to Pharmacy Electronically, [facility], Partial fill upon patient request if the prescription is for a schedule II opioi... Start Date: 06/01/22 Status: Ordered docusate sodium 100 mg oral tablet 1 tablet = 100 mg, By Mouth, 2 times a day, PRN for constipation, 0 Refills, Maintenance, 02/22/21 14:35:00 EDT, Tablet, Partial fill upon patient request if the prescription is for a schedule II opioid drug. Start Date: 02/22/21 Status: Ordered HYDROmorphone Inj 1 mg, Injection, IV Push Slowly, Every 3 hours, PRN for Pain , Severe, Routine, 06/01/22 11:48:00 EST Start Date: 06/01/22 Stop Date: 06/02/22 Status: Discontinued LORazepam 0.5 mg oral tablet 1 tablet [...] Refills, Maintenance, 11/05/21 10:19:00 EDT, CR Tablet, [id number], Partial fill upon patient request if the prescription is for a schedule II opioid drug., 175, cm, 10/29/21 14:02:00 EDT, Heig... Start Date: 11/05/21 Status: Ordered oxyCODONE 5 mg oral tablet See Instructions, PRN, 1-2 tablet By Mouth Every 4- 6 hours, # 42 tablet, Refills 0, Tot. Refills 0, Acute 06/07/22 7:18:00 EST, as needed for pain, 06/01/22 7:18:00 EST, Instructions Replace Required Details, Route to Pharmacy Electronically, [facility]... Start Date: 06/01/22 Stop Date: 06/07/22 Status: Ordered prochlorperazine 5 mg oral tablet [...] Ordered Secur-t 12?? Drainable Standard Wear Transparent #[id number] Secur-t 12?? Drainable Standard Wear Transparent #[id number], See Instructions, # 20 each, Refills 11, [...] 0 Refills, Maintenance, 07/15/21 9:58:00 EST, Capsule, [facility], Partial fill upon patient request if the prescription is for a schedule II opioid drug., 1 capsule By Mouth Daily,x30 days, 175,... Start Date: 07/15/21 Stop Date: 08/14/21 Status: Ordered Problem List Condition Confirmation Course Effective Dates Status [facility] Anoxic brain injury Confirmed Active Hemorrhagic shock Confirmed Active Bladder injury Confirmed Active Neurogenic bladder disorder Confirmed Active TMJ dysfunction Confirmed Active Results Radiology Reports * Exam Date Time Procedure Performing Provider Status 06/01/22 11:31 AM C-Arm > 1 Hour Sobeida Rodriguez; Aut h (Verified) Notes: (C-Arm > 1 Hour) Reason For Exam: Left leg external fixation; TT: 1hr 40 min FT: 1min 10sec RESULT: C-Arm > 1 Hour Ankle 2 Views Left, C-Arm > 1 Hour INDICATION: Reason: Left leg external fixation; TT: 1hr 40 min FT: 1min 10sec TECHNIQUE: Fluoroscopy support was provided. There was no radiologist in attendance. FLUOROSCOPY TIME: 1 minute 10 seconds EXPOSURE: 0.5643 Gycm2 TECHNOLOGIST TIME: 1 hour 40 minutes FINDINGS: Intraoperative fluoroscopy was performed in a total of 7 spot films of the left lower extremity were obtained during the procedure. An external fixation device is seen. Please refer to operative report for further detail. IMPRESSION: See above. WSN: [id number] Ordering Physician: Arlet Argueta Dictated By: Bk Rae MD Dictated Date/Time: 06/01/22 4:29 pm Reviewed By: Bk Rae MD Signed By: Bk Rae MD Signed Date/Time: 06/01/22 4:29 pm Transcribed By: SAVANNAH Transcribed Date/Time: 06/01/22 4:28 pm * Exam Date Time Procedure Performing Provider Status 06/01/22 11:31 AM Ankle 2 Views Left Michael , Sobeida; Auth (Verified) Notes: (Ankle 2 Views Left) Reason For Exam: Left leg external fixation; TT: 1hr 40 min FT: 1min 10sec RESULT: Ankle 2 Views Left Ankle 2 Views Left, C-Arm > 1 Hour INDICATION: Reason: Left leg external fixation; TT: 1hr 40 min FT: 1min 10sec TECHNIQUE: Fluoroscopy support was provided. There was no radiologist in attendance. FLUOROSCOPY TIME: 1 minute 10 seconds EXPOSURE: 0.5643 Gycm2 TECHNOLOGIST TIME: 1 hour 40 minutes FINDINGS: Intraoperative fluoroscopy was performed in a total of 7 spot films of the left lower extremity were obtained during the procedure. An external fixation device is seen. Please refer to operative report for further detail. IMPRESSION: See above. WSN: [id number] Ordering Physician: Arlet Argueta Dictated By: Bk Rae MD Dictated Date/Time: 06/01/22 4:29 pm Reviewed By: Bk Rae MD Signed By: Bk Rae MD Signed Date/Time: 06/01/22 4:29 pm Transcribed By: SAVANNAH Transcribed Date/Time: 06/01/22 4:28 pm * Exam Date Time Procedure Performing Provider Status 06/01/22 11:31 AM Ankle 2 Views Left Michael , Sobeida; Auth (Verified) Notes: (Ankle 2 Views Left) Reason For Exam: post op xrays; left external fixation RESULT: Ankle 2 Views Left Ankle 2 Views Left Reason: post op xrays; left external fixation COMPARISON: None. FINDINGS: An external fixation device overlies the left ankle, secured in the distal tibia and in the foot. IMPRESSION: External fixator in place. WSN: [id number] Ordering Physician: Arlet Argueta Dictated By: Bk Rae MD Dictated Date/Time: 06/01/22 4:28 pm Reviewed By: Bk Rae MD Signed By: Bk Rae MD Signed Date/Time: 06/01/22 4:28 pm Transcribed By: SAVANNAH Transcribed Date/Time: 06/01/22 4:24 pm Vital Signs Most recent to oldest [Reference Range]: 1 2 3 Height 171 cm (06/02/22 6:50 AM) 171 cm (06/01/22 5:25 PM) 171 cm (06/01/22 6:52 AM) Weight 56.81 kg (06/01/22 6:52 AM) 56.81 kg (05/27/22 1:10 PM) Oxygen Saturation [94-100 %] 100 % (06/02/22 6:50 AM) 98 % (06/02/22 3:00 AM) 100 % (06/01/22 7:00 PM) Pulse Rate [55-90 bpm] 62 bpm (06/02/22 6:50 AM) 81 bpm (06/02/22 3:00 AM) 70 bpm (06/01/22 7:00 PM) Body Mass Index [18.5-24.99 kg/m2] 19.43 kg/m2 (06/01/22 6:52 AM) 19.43 kg/m2 (05/27/22 1:10 PM) Blood Pressure [90-138/55-84 mm Hg] 118/65mm Hg (06/02/22 6:50 AM) 101/59mm Hg (06/02/22 3:00 AM) 105/59mm Hg (06/01/22 7:00 PM) Respiratory Rate [16-30 br/min] 18 br/min (06/02/22 8:34 AM) 18 br/min (06/02/22 6:50 AM) 22 br/min (06/02/22 6:38 AM) Temperature [96.8-100.4 DegF] 98.7 DegF (06/02/22 6:50 AM) 98.5 DegF (06/02/22 3:00 AM) 97.3 DegF (06/01/22 3:00 PM) Mode of Delivery (Oxygen) Room air (06/02/22 6:50 AM) Room air (06/02/22 3:00 AM) Room air (06/01/22 7:00 PM) Blood pressure sites Arm, right (06/02/22 6:50 AM) Arm, right (06/02/22 3:00 AM) Arm, right (06/01/22 7:00 PM) Temperature Route Oral (06/02/22 6:50 AM) Oral (06/02/22 3:00 AM) Temporal (06/01/22 3:00 PM) Dry Weight 56.81 kg (05/27/22 1:10 PM) Social History Social History Type Response Smoking Status Current some day smo ker entered on: 02/04/15 Sex History and physical note * Event Display: History and Physical Hospital Authored Date: Note * Event Display: Adult Preadmission Health Questionnaire Authored Date: * Event Display: Cardiac Rhythm Strips Authored Date: * BRY Mayorga S: TRANSCRIBE Bk Rae MD: VERIFY Event Display: Result: Authored Date: [id number] Ankle 2 Views Left, C-Arm > 1 Hour INDICATION: Reason: Left leg external fixation; TT: 1hr 40 min FT: 1min 10sec TECHNIQUE: Fluoroscopy support was provided. There was no radiologist in attendance. FLUOROSCOPY TIME: 1 minute 10 seconds EXPOSURE: 0.5643 Gycm2 TECHNOLOGIST TIME: 1 hour 40 minutes FINDINGS: Intraoperative fluoroscopy was performed in a total of 7 spot films of the left lower extremity were obtained during the procedure. An external fixation device is seen. Please refer to operative report for further detail. IMPRESSION: See above. WSN: [id number] Ordering Physician: Arlet Argueta Dictated By: Bk Rae MD Dictated Date/Time: 06/01/22 4:29 pm Reviewed By: Bk Rae MD Signed By: Bk Rae MD Signed Date/Time: 06/01/22 4:29 pm Transcribed By: SAVANNAH Transcribed Date/Time: 06/01/22 4:28 pm Hospital Progress note * Debbie Adkins RN: PERFORM, SIGN, VERIFY Event Display: Progress Note Hospital Authored Date: [id number] Patient: TOBIAS VASQUEZ Age: 32 years Sex: Male : 1990 Associated Diagnoses: None Author: Debbie Adkins RN Findings Problem Related to Alteration in Musculoskeletal : Alteration in Musculoskeletal Func/new 06/02/2022 12:00 EST Alteration in Musculoskeletal Related to Mobility, Orthopedic Procedure, Other: L achilles lengthening and release 06/01 Goals & Outcomes, Musculoskeletal Affected extremity will maintain color/motion/sensation, Pt will report acceptable level of comfort/pain relief Interventions, Musculoskeletal Monitor patients ambulation status, monitor Color/Motion/Sensation, Assist with repositioning, Encourage deep breathing & coughing exercises, Notify MD immediately if tissue perfusion deteriorates, Obtain assistive devices as needed, Teach & Encourage use of Incentive spirometer, Teach Pt/caregiver on ADL's & adaptive equipment, Teach Pt/caregiver on exercises, Teach pt/caregiver on use of pain scale, Teach Pt/caregiver complications of immobility, Teach Pt/caregiver techniques to increase mobility, Teach Pt/caregiver on safety precautions BH Goals/Interventions, Musculoskeletal Yes Musculoskeletal, Problem Start 06/01/2022 17:50 Reviewed Plan with, Musculoskeletal Patient Patient Progression, Musculoskeletal Pt progressing according to plan . Narrative/Incidental 0600 assumed care of patient, A&OX3, anxious and demanding, screaming out for staff and noncompliant with using call arteaga. Safety and needs reinforced, hourly rounding and call arteaga at bedside. Lt foot external fixator intact.DSD and Jalil CDI. Lt foot skin skin pink, warm and dry. <3 cap refill., + popliteal pulse with doppler. Rt AKA well perfused. Pain 10/10 and IV pain meds given this mor fortino with + effect. P vomiting watery emesis and IV zofran given with +effect. Voiding CYUO with urinal. Last bm 06/01, meds taken whole with water, no swallow issue, refusing to eat this mornining. Pt asking to leave and therapy cleared patient. MD requesting addiction consult order be complete prior to discharge. Pt refusing to wait, pulled his IV out and left in a wheelchair AMA, without signing paperwork. Patient refused to give reason for leaving abruptly. notified. Pt left with mother who wheeled patient off the unit. . Discharge Information Rehabilitation Discharge : Rehab Discharge Index 06/02/2022 9:07 EST Comments on treatment indicated 32 y/o M s/p Left posterior tibial tendon and flexor digitorum longus intramuscular lengthening, open Achilles tendon lengthening, application of dynamic multiplane external fixator. by Dr. Argueta on 06/01/2022. NWB LLE Full chart review completed Yes Hospital course see comment Other findings Pt is a low complexity evaluation * Oscar Holt DO: PERFORM, SIGN, VERIFY Event Display: Progress Note Hospital Authored Date: Patient: TOBIAS VASQUEZ Age: 32 years Sex: Male : 1990 Associated Diagnoses: None Author: Oscar Holt DO Block Information Procedure Date: 06/01/22 Laterality: Left Type: Femoral, Popliteal Injection Site: Bruising: None Redness: None Swelling: None Tenderness: None Block site: clean and dry Block Duration: Block length of time: Block resolved at time of examination Patient Satisfaction: Were you satisfied with your block/procedure? yes Would you have a block/procedure in the future? yes Patient Follow-up: None, Block Resolved. Patient unable to move toes at baseline. * Renu Leiva: PERFORM, SIGN, VERIFY, MODIFY, SIGN, MODIFY, SIGN Event Display: Progress Note Hospital Authored Date: Patient: TOBIAS VASQUEZ Age: 32 years Sex: Male : 1990 Associated Diagnoses: None Author: Renu Leiva Findings Problem Related to Alteration in Musculoskeletal : Alteration in Musculoskeletal Func/new 06/02/2022 3:00 EST Alteration in Musculoskeletal Related to Orthopedic Procedure, Other: L achilles lengthening and release 06/01 Goals & Outcomes, Musculoskeletal Affected extremity will maintain color/motion/sensation, Pt will report acceptable level of comfort/pain relief Interventions, Musculoskeletal Monitor patients ambulation status, monitor Color/Motion/Sensation, Assist with repositioning, Encourage deep breathing & coughing exercises, Notify MD immediately if tissue perfusion deteriorates, Obtain assistive devices as needed, Teach & Encourage use of Incentive spirometer, Teach Pt/caregiver on ADL's & adaptive equipment, Teach Pt/caregiver on exercises, Teach pt/caregiver on use of pain scale, Teach Pt/caregiver complications of immobility, Teach Pt/caregiver techniques to increase mobility, Teach Pt/caregiver on safety precautions BH Goals/Interventions, Musculoskeletal Yes Musculoskeletal, Problem Start 06/01/2022 17:50 Reviewed Plan with, Musculoskeletal Patient Patient Progression, Musculoskeletal Pt progressing according to plan . Nursing Data Vital Signs : VITAL SIGNS SECTION 06/02/2022 3:00 EST Temperature 98.5 DegF Temperature Route Oral Pulse Rate 81 bpm Systolic Blood Pressure 101 mm Hg Diastolic Blood Pressure 59 mm Hg Blood pressure sites Arm, right Oxygen Saturation 98 % Mode of Delivery (Oxygen) Room air 06/02/2022 2:59 EST Early Warning Score 2.00 06/02/2022 2:00 EST Early Warning Score 2.00 06/02/2022 2:00 EST Respiratory Rate 16 br/min 06/02/2022 0:31 EST Respiratory Rate 20 br/min 06/02/2022 0:05 EST Early Warning Score 2.00 06/02/2022 0:01 EST Respiratory Rate 20 br/min 06/01/2022 22:50 EST Early Warning Score 2.00 06/01/2022 21:35 EST Respiratory Rate 18 br/min 06/01/2022 21:05 EST Early Warning Score 2.00 06/01/2022 21:05 EST Respiratory Rate 16 br/min 06/01/2022 19:39 EST Early Warning Score 2.00 06/01/2022 19:02 EST Early Warning Score 2.00 06/01/2022 19:00 EST Pulse Rate 70 bpm Respiratory Rate 18 br/min Systolic Blood Pressure 105 mm Hg Diastolic Blood Pressure 59 mm Hg Blood pressure sites Arm, right Oxygen Saturation 100 % Mode of Delivery (Oxygen) Room air . Narrative/Incidental Pt s/p L achilles lengthening and release and plantar facial release on 06/01, POD#0. Pt is A+Ox3, agitated and uncooperative with some care. Pt denies CP or SOB. Pt refusing bladder scans, ice, or abdominal assessment. Pt with L abdominal colostomy, colostomy care performed by pt's mother. Pt withR AKA and LLE with jalil and external fixator, c/d/i. LLE elevated. Pt with specality low air loss bed. Pt uses wheelchair at baseline, pt T&R overnight. Plan for lovenox for DVT prophylaxis. Pt voiding in urinal. Pt educated on safety and fall precautions, pt verbalized understanding. Hourly rounding and call arteaga within reach. Pt +N/V throughout the night, OLESYA Tavares notified of nausea and vomiting. PO zofran order discontinued and orders for IV zofran initiated. Pt with continued nausea despite IV zofran administration, OLESYA Tavares notified and orders for scopalamine patch initated and placed behind R ear. Pt is now reporting improvement of nausea and has been without an episode of vomitting since 23:00. Pt also able to tolerate PO ativan which provided +relief. Pt educated on all director mobile media solutions, pt verbalized understanding Pt endorsing 9-10/10 pain, medicated with IV dilaudid 1mg q 3, OLESYA Tavares notified of continued pain, no new orders at this time. Pt was able to tolerate PO oxycodone 10mg when nausea had been relieved and which provided +relief.. XR Ankle - left 2 Views * Tierra , CIS S: TRANSCRIBk Jc MD: VERIFY Event Display: Result: Authored Date: [id number] Ankle 2 Views Left Reason: post op xrays; left external fixation COMPARISON: None. FINDINGS: An external fixation device overlies the left ankle, secured in the distal tibia and in the foot. IMPRESSION: External fixator in place. WSN: [id number] Ordering Physician: Arlet Argueta Dictated By: Bk Rae MD Dictated Date/Time: 06/01/22 4:28 pm Reviewed By: Bk Rae MD Signed By: Bk Rae MD Signed Date/Time: 06/01/22 4:28 pm Transcribed By: SAVANNAH Transcribed Date/Time: 06/01/22 4:24 pm * Tierra , CIS S: TRANSCRIBk Jc MD: VERIFY Event Display: Result: Authored Date: [id number] Ankle 2 Views Left, C-Arm > 1 Hour INDICATION: Reason: Left leg external fixation; TT: 1hr 40 min FT: 1min 10sec TECHNIQUE: Fluoroscopy support was provided. There was no radiologist in attendance. FLUOROSCOPY TIME: 1 minute 10 seconds EXPOSURE: 0.5643 Gycm2 TECHNOLOGIST TIME: 1 hour 40 minutes FINDINGS: Intraoperative fluoroscopy was performed in a total of 7 spot films of the left lower extremity were obtained during the procedure. An external fixation device is seen. Please refer to operative report for further detail. IMPRESSION: See above. WSN: [id number] Ordering Physician: Arelt Argueta Dictated By: Bk Rae MD Dictated Date/Time: 06/01/22 4:29 pm Reviewed By: Bk Rae MD Signed By: Bk Rae MD Signed Date/Time: 06/01/22 4:29 pm Transcribed By: SAVANNAH Transcribed Date/Time: 06/01/22 4:28 pm Patient Care team information Care Team Personnel Name: Ashley Lewis RN Position: [facility] RN Member Role: Primary Care Nurse Name: Karl Church RN Position: [facility] RN Member Role: Primary Care Nurse Name: Jay Bush RN Position: [facility] ED RN W/OE and Tasks Member Role: Primary Care Nurse Name: Reanna Davies RN Position: [facility] PCO RN Member Role: Primary Care Nurse Name: Kita Mahajan RN Position: [facility] RN Member Role: Primary Care Nurse Name: Michelle Miller RN Position: [facility] RN Member Role: Primary Care Nurse Name: Shoshana Vasquez RN Position: [facility] RN Member Role: Primary Care Nurse Name: Antelmo Johnson RN Position: [facility] RN Member Role: Primary Care Nurse Name: Poonam Sanchez RN Position: [facility] RN Member Role: Primary Care Nurse Name: Jonas Hampton RN Position: [facility] RN Member Role: Primary Care Nurse Name: TIFFANY PELAYO RN Position: [facility] RN Member Role: Primary Care Nurse Name: Arlet Ferraro RN Position: [facility] RN Member Role: Primary Care Nurse Name: Sobeida Lomeli RN Position: [facility] RN Member Role: Primary Care Nurse Name: Stella Macias RN Position: [facility] HBO Wound Member Role: Primary Care Nurse Name: Sobeida Dickson RN Position: [facility] RN Member Role: Primary Care Nurse Name: Juan J Hinojosa RN Position: [facility] RN Member Role: Primary Care Nurse Name: Cm Ruiz MD Position: Reference Physician Member Role: PCP Address: Address: [address] [place] [id number] Name: Esther Simmons Position: [facility] RN Member Role: Primary Care Nurse Name: Deepti Brown RN Position: [facility] RN Member Role: Primary Care Nurse Name: Carmelina Horta RN Position: [facility] RN Member Role: Primary Care Nurse Name: Sabrina Lobato RN Position: [facility] RN Member Role: Primary Care Nurse Name: Mari Lira RN Position: [facility] RN Supv Member Role: Primary Care Nurse Name: Kvng Millard RN Position: [facility] ED RN W/OE and Tasks Member Role: Primary Care Nurse Name: Sho Vasquez RN Position: [facility] AMB Nurse Member Role: Primary Care Nurse Name: Alex Marmolejo RN Position: [facility] RN Member Role: Primary Care Nurse Name: Chantal Quezada Position: [facility] Outreach Member Role: Lifetime Consulting Physician Name: Angie Barry RN Position: [facility] RN Member Role: Primary Care Nurse Name: Rik Titus MD Position: [facility] Renal MD Member Role: Lifetime Consulting Physician Address: Address: [address] [place] [address] [facility] [place] [address]- Name: Shoshana Al RN Position: [facility] RN Member Role: Primary Care Nurse Name: Tiffany Connor RN Position: [facility] RN Member Role: Primary Care Nurse Name: Paula Douglas RN Position: [facility] RN Member Role: Primary Care Nurse Name: Sobeida Juarez RN Position: [facility] RN Member Role: Primary Care Nurse Name: Agnes Sam RN Position: [facility] RN Member Role: Primary Care Nurse Name: Arlet Campos RN Position: [facility] RN Member Role: Primary Care Nurse Name: Nusrat Salguero RN Position: [facility] Onco RN Member Role: Primary Care Nurse Care Team Related Persons Name: MICKY ROSE Name: NEREYDA MADELEINE Address: home [address] [place] [address] Name: [employer] Address: home [address] [place] [address] Name: SANA VASQUEZ Address: home [address] [place] [address]
--- OUTSIDE RECORDS SUMMARY | 2024-01-15 09:02 | XMS_ITS | Continuity of Care Document ---
Author Organization [facility] ter Address [address] [place] [address]- Care Team Providers Care Blue Print Control Clerk Name Role Phone Not on Staff, PCP Primary Care Physician Unavail able Encounter [facility] [place] Date(s): 03/22/20 - 03/22/[address] [address]- [facility] Discharge Disposition: A-D/C Home Attending Physician: Ad Stephens MD Admitting Physician: Ad Stephens MD Referring Physician: Not on Staff, Referring [...] 04/02/20 7:00:00 EDT, 03/22/20 7:00:00 EDT, Tablet, [facility] #[id number], 165, cm, 03/21/20 6:06:00 EDT, Height, 55, [...] mL, 0 Refills, Maintenance, 06/04/1910:46:00 EST, Syrup, [facility], 30 mL By Mouth 3 times a day,PRN:Constipation, 175, cm, 06/03/19 20:50:00 EST, Height, 49.3, kg, ... Start Date: 06/04/19 Status: Ordered Lexapro 10 mg oral tablet 1 tablet = 10 mg, By Mouth, Daily in AM, # 30 tablet, 0 Refills, Maintenance, 06/16/19 9:33:00 EST,Tablet, [facility] #[id number], 176, cm, 06/16/19 6:59:00 EST, Height, 49, kg, 06/14/19 16:20:00 EST, Dry Weight Start Date: 06/16/19 Status: Ordered MiraLax oral powder for reconstitution = 17 Gm, By Mouth, Daily, dissolve in water before taking, # 255 Gm, 0 Refills, Maintenance, 06/04/19 11:10:00 EST, REC Powder, [facility], 17 Gm By Mouth Daily,Instr:dissolve in water before taking, 175, cm, 06/03/19 20:50:00 EST, Heigh... Start Date: 06/04/19 Status: Ordered Neurontin 300 mg oral capsule 300 mg, 1, capsule, By Mouth, 3 times a day, # 180 capsule, Refills 0, Tot. Refills 0, Maintenance,06/04/19 10:45:00 EST, Route to Pharmacy Electronically, [facility], 175, cm, 06/03/19 [...] 0 Refills, Maintenance, 06/16/19 11:41:00 EST, Tablet, [facility], 176, cm, 06/16/19 6:59:00 EST, Height, 49, kg, 06/14/19 16:20:00 EST, Dry Weight Start Date: 06/16/19 Stop Date: 06/21/19 Status: Ordered Problem List Condition Effective Dates Status Health Status Inform ant Hemorrhagic shock(Confirmed) Active Bladder injury(Confirmed) Active Vital Signs Most recent to oldest [Reference Range]: 1 Oxygen Saturation [94-100 %] 100 % (03/22/20 8:38 PM) Pulse Rate [55-90 bpm] 115 bpm *H* (03/22/20 8:38 PM) Blood Pressure [90-138/55-84 mm Hg] 126/ 78mm Hg (03/22/20 8:38 PM) Respiratory Rate [16-30 br/min] 20 br/mi n (03/22/20 8:38 PM) Temperature [96.8-100.4 DegF] 99.1 DegF (03/22/20 8:38 PM) Mode of Delivery (Oxygen) Room air (03/22/20 8:38 PM) Blood pressure sites Arm, left (03/22/20 8:38 PM) Temperature Route Oral (03/22/20 8:38 PM) Social History Social History Type Response Smoking Status Current some day smo ker entered on: 02/04/15 Sex
--- OUTSIDE RECORDS SUMMARY | 2024-01-15 09:03 | XMS_ITS | Continuity of Care Document ---
Author Organization [facility] Address Unknown Care Team Providers Care Senior Dentist Name Role Phone Sara TRUJILLO, Cm Kunz Primary Care Physician [place] [facility] [place] 10/29/21 - 11/28/21 [facility] Attending Physician: Alexander Jama Admitting Physician: Alexander Jama Referring Physician: [id number] Allergies, Adverse Reactions, Alerts Substance Reaction Severity [...] Refills, Maintenance, 11/05/21 10:19:00 EDT, CR Tablet, [facility] #[id number], Partial fill upon patient request if the prescription is for a schedule II opioid drug., 175, cm, 10/29/21 14:02:00 EDT, Heig... Start Date: 11/05/21 Status: Ordered prochlorperazine 5 mg oral tablet 1 tablet = 5 mg, By Mouth, 3 times a day, PRN Nausea Start Date: 02/22/21 Status: Ordered Secur-t 12?? Drainable Standard Wear Transparent #[id number] Secur-t 12?? Drainable Standard Wear Transparent #[id number], See Instructions, # 20 each, Refills 11, [...] 0 Refills, Maintenance, 07/15/21 9:58:00 EST, Capsule, [facility], Partial fill upon patient [...]
--- OUTSIDE RECORDS SUMMARY | 2024-01-15 09:03 | XMS_ITS | Continuity of Care Document ---
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 Drainable Standard Wear Transparent #[id number] Secur-t 12?? Drainable Standard Wear Transparent #[id number], See Instructions, # 20 each, Refills 11, Tot. 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 Start Date: 11/03/21 Status: Ordered Therapeutic Multiple Vitamins with Minerals oral capsule 1 capsule, By Mouth, Daily, # 30 capsule, 0 Refills, Maintenance, 07/15/21 9:58:00 EST, Capsule, [facility], Partial fill upon patient [...] Team Personnel Name: Ashley Lewis RN Position: [facility] RN Member Role: Primary Care Nurse Name: Karl Church RN Position: [facility] RN Member Role: Primary Care Nurse Name: Jay Bush RN Position: [facility] ED RN W/OE and Tasks Member Role: Primary Care Nurse Name: Reanna Davies RN Position: [facility] AMB Nurse Member Role: Primary Care Nurse Name: Kita Mahajan RN Position: [facility] RN Member Role: Primary Care Nurse Name: Sobeida Long RN Position: [facility] RN Member Role: Primary Care Nurse Name: Shoshana Vasquez RN Position: [facility] RN Member Role: Primary Care Nurse Name: Antelmo Johnson RN Position: [facility] RN Member Role: Primary Care Nurse Name: Abigail Chen RN Position: [facility] RN Member Role: Primary Care Nurse Name: Poonam Sanchez RN Position: [facility] RN Member Role: Primary Care Nurse Name: Jonas Hampton RN Position: [facility] RN Member Role: Primary Care Nurse Name: Tiffany Buckley RN Position: [facility] RN Member Role: Primary Care Nurse Name: Arlet Ferraro RN Position: [facility] RN Member Role: Primary Care Nurse Name: Jennifer Anderson RN Position: [facility] RN Member Role: Primary Care Nurse Name: Stella Macias RN Position: [facility] HBO Wound Member Role: Primary Care Nurse Name: Harshad Agee RN Position: [facility] RN Member Role: Primary Care Nurse Name: Juan J Hinojosa RN Position: [facility] RN Member Role: Primary Care Nurse Name: Cm Ruiz MD Position: Reference Physician Member Role: PCP Address: Address: [address] [place] [address] Name: Esther Simmons Position: [facility] RN Member Role: Primary Care Nurse Name: Deepti Brown RN Position: [facility] RN Member Role: Primary Care Nurse Name: Carmelina Horta RN Position: [facility] RN Member Role: Primary Care Nurse Name: Sabrina Lobato RN Position: [facility] RN Member Role: Primary Care Nurse Name: Heaven Penn RN Position: [facility] RN Member Role: Primary Care Nurse Name: Khloe Bonilla RN Position: [facility] RN Member Role: Primary Care Nurse Name: Mari Lira RN Position: [facility] RN Supv Member Role: Primary Care Nurse Name: Sho Vasquez RN Position: [facility] AMB Nurse Member Role: Primary Care Nurse Name: Alex Marmolejo RN Position: [facility] RN Member Role: Primary Care Nurse Name: Chantal Quezada Position: [facility] Outreach Member Role: Lifetime Consulting Physician Name: Angie Barry RN Position: [facility] RN Member Role: Primary Care Nurse Name: Rik Titus MD Position: [facility] Renal MD Member Role: Lifetime Consulting Physician Address: Address: [address] [place] [address] [facility] [address] Name: Shoshana Al RN Position: [facility] RN Member Role: Primary Care Nurse Name: Paula Douglas RN Position: [facility] RN Member Role: Primary Care Nurse Name: Sobeida Juarez RN Position: [facility] SN RN Member Role: Primary Care Nurse Name: Agnes Sam RN Position: [facility] RN Member Role: Primary Care Nurse Name: Arlet Campos RN Position: [facility] RN Member Role: Primary Care Nurse Name: Nusrat Salguero RN Position: [facility] Onco RN Member Role: Primary Care Nurse Care Team Related Persons Name: MICKY ROSE Name: MADELEINE DAWN Address: home [address] [place] [address] Name: [employer] Address: home [address] [place] [address] Name: SANA VASQUEZ Address: home [address] [place] [address]
--- OUTSIDE RECORDS SUMMARY | 2024-01-15 09:03 | XMS_ITS | Continuity of Care Document ---
Author Organization [facility] Address [address] [place] [address]- Care Team Providers Care Certifier Name Role Phone Dave Guerra MD Primary Care Physician [place] [facility] [id number] Date(s): 05/04/21 - 06/05/[address] [address] Attending Physician: Dave Guerra MD Admitting Physician: Dave Guerra MD Referring Physician: Dave Guerra MD Allergies, Adverse Reactions, Alerts Substance Reaction [...]
--- OUTSIDE RECORDS SUMMARY | 2024-01-15 09:03 | XMS_ITS | Continuity of Care Document ---
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 Start Date: 06/04/19 Status: Ordered Lexapro 10 mg oral tablet 1 tablet = 10 mg, By Mouth, Daily in AM, # 30 tablet, 0 Refills, Maintenance, 06/16/19 9:33:00 EST,Tablet, [facility] #[id number], 176, cm, 06/16/19 6:59:00 EST, Height, 49, kg, 06/14/19 16:20:00 EST, Dry Weight Start Date: 06/16/19 Status: Ordered MiraLax oral powder for reconstitution = 17 Gm, By Mouth, Daily, dissolve in water before taking, # 255 Gm, 0 Refills, Maintenance, 06/04/19 11:10:00 EST, REC Powder, [facility], 17 Gm By Mouth Daily,Instr:dissolve in water before taking, 175, cm, 06/03/19 20:50:00 EST, Heigh... Start Date: 06/04/19 Status: Ordered Neurontin 300 mg oral capsule 300 mg, 1, capsule, By Mouth, 3 times a day, # 180 capsule, Refills 0, Tot. Refills 0, Maintenance,06/04/19 10:45:00 EST, Route to Pharmacy Electronically, [facility], 175, cm, 06/03/19 [...] Refills, Maintenance, 08/15/20 5:41:00 EST, DIS Tablet, [facility]/pharmacy #[id number], Partial fill upon patient request if the prescription is for a schedule II opioid d... Start Date: 08/15/20 Status: Ordered ondansetron 4 mg oral tablet, disintegrating 1 tablet = 4 mg, By Mouth, Every 8 hours, PRN as needed for nausea/vomiting, # 9 tablet, 0 Refills,Maintenance, 05/18/20 23:27:00 EST, DIS Tablet, [facility] #[id number], Partial fill upon patient request if the prescription is for a schedule II... Start Date: 05/18/20 Stop Date: 05/21/20 Status: Ordered ondansetron 4 mg oral tablet, disintegrating 1 tablet = 4 mg, By Mouth, Every 8 hours, PRN as needed for nausea/vomiting, # 10 tablet, 0 Refills, Maintenance, 06/14/20 0:24:00 EST, DIS Tablet, [facility]/pharmacy #[id number], Partial fill upon [...] 0 Refills, Maintenance, 06/16/19 11:41:00 EST, Tablet, [facility], 176, cm, 06/16/19 6:59:00 EST, Height, 49, kg, 06/14/19 16:20:00 EST, Dry Weight Start Date: 06/16/19 Stop Date: 06/21/19 Status: Ordered Zofran 4 mg oral tablet 1 tablet = 4 mg, By Mouth, Every 8 hours, PRN as needed for nausea/vomiting, # 9 tablet, 0 Refills,Maintenance, 07/10/20 20:03:00 EST, Tablet, [facility]/pharmacy #[id number], Partial fill upon [...]
--- OUTSIDE RECORDS SUMMARY | 2024-01-15 09:03 | XMS_ITS | Continuity of Care Document ---
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 10/10/2022 0:41 EDT Temperature 97.8 DegF Temperature Route Oral Pulse Rate 92 bpm H Respiratory Rate 18 br/min Systolic Blood Pressure 128 mm Hg Diastolic Blood Pressure 83 mm Hg Blood pressure sites Arm, right Mean Arterial Pressure 98 mm Hg Pulse Pressure 45 mm Hg Oxygen Saturation 100 % Mode of Delivery (Oxygen) Room air 10/09/2022 22:36 EDT Respiratory Rate 18 br/min 10/09/2022 22:06 EDT Respiratory Rate 18 br/min 10/09/2022 20:06 EDT Temperature 97.8 DegF Temperature Route Oral Pulse Rate 92 bpm H Respiratory Rate 18 br/min Systolic Blood Pressure 128 mm Hg Diastolic Blood Pressure 83 mm Hg Mean Arterial Pressure 98 mm Hg Pulse Pressure 45 mm Hg Oxygen Saturation 100 % Mode of Delivery (Oxygen) Room air . Evaluation P: Alteration in Comfort Alteration in Musculoskeletal Function I: See Above Care Plans for Interventions E: Mr. Tobias Vasquez, 32 year old male, A&O x 4 arrived via ambulance at approximately 20:00 from [facility]. Pt has c/o of N/V, abdominal pain and UTI, CT scan performed at [place] showing multiple kidney stones in kidney, bladder and ureters. Pt. has RLE amputation, with prosthetic; remained bedfast duration of shift. Pt. endorsed 10/10 pain, received 0.5 mg dilaudid at 22:00 with moderate effect, PRN 0.5mg Ativan PO at 00:00 and PRN 3mg melatonin at 00:00 to help with sleep with postive effect and PRN 1mg dilaudid at 5:00 for 6/10 pain with +effect. Upon arrival pt. presented with lock jaw and was administered 50mg benadryl with +effect. Pt. mother arrived shortly after arrival and helped with past medical history, mother remained overnight with pt. and calmed him and made him less anxious. Pt. has a LLQ ostomy with pink, moist stoma and intact surrounding skin, ostomy is taken care of by pt. and pt.'s mother, as of end of shift pt. has not had any output r/t poor intake and make NPO after midnight (10/10). Pt. has +BS, abdomen flat, tender to touch. Pt. had N/V at beginning of shift, clear emesis produced with small chunks for food particles, approximatley 100mL total. Administered 4mg IV zofran with +effect. Pt.'s mother explained son has fistula with is bladder and when he urinates he urinates from both penis and rectum, pt. had a large quantity of urine output at 3:00, pt.'s mother assisted in placing towels and helping son. Pt. also has bilateral contracted hands and needs assistance with feeding and holding items. Pt. was placed on IV Fluids, 1000mL LR infusing into right FA at 75mL/hr. Pt. received 2 doses of IV ABT, Cefepime during shift. See CIS for further assessments, labs, vitals and I&Os. All safety measures in place: bed in lowest position, wheels locked, non-slips socks presented to pt., call arteaga within reach and frequent purposeful rounding performed.. Patient Care team information Care Team Personnel Name: Ashley Lewis RN Position: [facility] RN Member Role: Primary Care Nurse Name: Karl Church RN Position: [facility] RN Member Role: Primary Care Nurse Name: Jay Bush RN Position: [facility] ED RN W/OE and Tasks Member Role: Primary Care Nurse Name: Reanna Davies RN Position: [facility] AMB Nurse Member Role: Primary Care Nurse Name: Kita Mahajan RN Position: [facility] RN Member Role: Primary Care Nurse Name: Sobeida Long RN Position: [facility] RN Member Role: Primary Care Nurse Name: Shoshana Vasquez RN Position: [facility] RN Member Role: Primary Care Nurse Name: Antelmo Johnson RN Position: [facility] RN Member Role: Primary Care Nurse Name: Abigail Chen RN Position: [facility] RN Member Role: Primary Care Nurse Name: Poonam Sanchez RN Position: [facility] RN Member Role: Primary Care Nurse Name: Jonas Hampton RN Position: [facility] RN Member Role: Primary Care Nurse Name: Tiffany Buckley RN Position: [facility] RN Member Role: Primary Care Nurse Name: Arlet Ferraro RN Position: [facility] RN Member Role: Primary Care Nurse Name: Jennifer Anderson RN Position: [facility] RN Member Role: Primary Care Nurse Name: Stella Macias RN Position: [facility] HBO Wound Member Role: Primary Care Nurse Name: Harshad Agee RN Position: [facility] RN Member Role: Primary Care Nurse Name: Sobeida Dickson RN Position: [facility] RN Member Role: Primary Care Nurse Name: Juan J Hinojosa RN Position: [facility] RN Member Role: Primary Care Nurse Name: Cm Ruiz MD Position: Reference Physician Member Role: PCP Address: Address: [address] [place] [id number] Name: Esther Simmons Position: [facility] RN Member Role: Primary Care Nurse Name: Deepti Brown RN Position: [facility] RN Member Role: Primary Care Nurse Name: Carmelina Horta RN Position: [facility] RN Member Role: Primary Care Nurse Name: Sabrina Lobato RN Position: [facility] RN Member Role: Primary Care Nurse Name: Heaven Penn RN Position: [facility] RN Member Role: Primary Care Nurse Name: Mari Lira RN Position: [facility] RN Supv Member Role: Primary Care Nurse Name: Sho Vasquez RN Position: [facility] AMB Nurse Member Role: Primary Care Nurse Name: Alex Marmolejo RN Position: [facility] RN Member Role: Primary Care Nurse Name: Chantal Quezada Position: [facility] Outreach Member Role: Lifetime Consulting Physician Name: Angie Barry RN Position: [facility] RN Member Role: Primary Care Nurse Name: Rik Titus MD Position: [facility] Renal MD Member Role: Lifetime Consulting Physician Address: Address: [address] [place] [address] [facility] [place] [address]- Name: Shoshana Al RN Position: [facility] RN Member Role: Primary Care Nurse Name: Paula Douglas RN Position: [facility] RN Member Role: Primary Care Nurse Name: Sobeida Juarez RN Position: [facility] SN RN Member Role: Primary Care Nurse Name: Agnes Sam RN Position: [facility] RN Member Role: Primary Care Nurse Name: Arlet Campos RN Position: [facility] RN Member Role: Primary Care Nurse Name: Nusrat Salguero RN Position: [facility] Onco RN Member Role: Primary Care Nurse Care Team Related Persons Name: MICKY ROSE Name: MADELEINE DAWN Address: [address] [place] [address] Name: [facility] Address: home [address] [place] [address] Name: SANA VASQUEZ Address: home [address] [place] [address]
[2024-01-15] MEDS: Lactated Ringers 1,000 ML 100 ML IVCONT (09:46)
[2024-01-15] MEDS: levoFLOXacin 500 MG TABLET PO (09:47)
--- NOTE | 2024-01-15 10:19 | PC.NURSE ---
patient agitated and anxious. moaning and groaning. wanting to leave. easily redirected. mom by side for support. mom rubbing patients lower back and i applied a warm blanket for comfort. awaiting to be seen by anesthesia. asking for pain medication.
--- NOTE | 2024-01-15 10:38 | PC.NURSE ---
mom remains by bedside rubbing patients back. new warm blanket applied. patient aware of plan and awaiting for anesthesia to see patient.
[2024-01-15] MEDS: ondansetron HCL 4 MG/2 ML VIAL IVPUSH (11:06)
--- NOTE | 2024-01-15 11:11 | PC.NURSE ---
patient refused fentanyl. agitated and anxious. complaining of pain.
--- NOTE | 2024-01-15 11:14 | MHC.SHP ---
Pre-Procedural Eval Section A - 24 Hr Update-Section A only Date of Service: 01/15/24 The patient is an INPATIENT: No Changes since office visit: No Cold of Flu in the past 2 weeks, No New Medical Problems, No Changes in Medication and No Patient answered all questions The patient has been examined within 24 hours of the surgical procedure. The History & Physical has been completed within 30 days and I have reviewed it.: Yes Section B - Complete if H&P > 30 days Chief Complaint: Calculus of kidney Details of Present Illness: Indwelling stent left side Relevant Family History (Specify if Yes): No Relevant Social History: None Present Medications: see Short Stay Collaborative assessment Medical History: Significant History History of Previous Operations: Relevant previous surgery/procedure and date(s) Allergies: Allergies Allergy/AdvReac Type Severity Reaction Status Date / Time morphine Allergy Intermediate Hives Verified 11/21/23 14:23 Sulfa (Sulfonamide Allergy Intermediate nausea Verified 11/21/23 14:23 Antibiotics) Review of Systems Sugical H&P ROS: Negative: Constitution, Cardiovascular, Respiratory, Neurological, Psychiatric, Hem-Onc, Allergic/Immunologic, Gastrointestinal, Genitourinary, Musculoskeletal, Integumentary, Endocrine and Eyes/Ears/Nose/Throat Exam Surgical H&P Exam: Normal: HEENT, Normal: Heart, Normal: Lungs, Normal: Extremities, Normal: Abdomen, Normal: Skin and Normal: Neurological Plan Diagnosis/Plan: Unchanged (Cystoscopy, stent removal) I have reviewed the history and physical and performed a pertinent physical examination on my patient. No changes have occurred unless specified. Time Spent With Patient Time: Total time managing care of this patient today ____ minutes.
--- NOTE | 2024-01-15 12:16 | W.PM.OPN ---
Operative Note Operative Note Date of Service: 01/15/24 Narrative: PreOperative Diagnosis: Left indwelling stent Post Operative Diagnosis: Left indwelling stent Procedure: Cystoscopy with left stent removal Surgeon: Dr Wesley Early Anesthesia: Sedation Indications for procedure: Indwelling left stent not tolerate removal in office Procedure: After informed consent was verified the patient was brought to the operating room and placed in a supine position. Anesthesia was administered per protocol. The patient was placed in modified dorsal lithotomy position and prepped and draped in a sterile fashion. A safety pause time-out was performed. Laterality of procedure and antibiotics were confirmed, appropriate imaging was available A 22 Yoruba cystoscope was introduced per urethra. No abnormality was noted of urethra or bladder. Both ureteric orifices were seen in a normal position. Stent emerging from left ureter was grasped and removed Pathology: Drains:
[2024-01-15] MEDS: oxyCODONE HCl Immed Release 5 MG TABLET PO (12:24)
== END 2024-01-15 13:08 | disposition home or self-care (01) ==
PROVIDERS: Visit Provider Urology
PROC: (CPT 52310; principal; 2024-01-15 11:20)
DX: N20.0 Calculus of kidney (principal); N31.9 Neuromuscular dysfunction of bladder, unspecified
CPT/HCPCS: 52310; J2405; J2704; J3010

== ENCOUNTER → 2024-01-15 08:58 | Outpatient (BNV) | payer OTHER, SELFPAY | PROVIDERS: Visit Provider Urology | DX: N20.0 Calculus of kidney (principal); Z96.0 Presence of urogenital implants | CPT/HCPCS: 52310 ==

== ENCOUNTER 2024-02-01 13:48 | Outpatient (AMB) | payer OTHER, SELFPAY ==
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
== END 2024-02-01 14:32 | disposition home or self-care (01) ==
LOC: HO.HUSH 13:48
PROVIDERS: PCP Family Medicine; Visit Provider Urology
DX: N39.0 Urinary tract infection, site not specified (principal); N20.0 Calculus of kidney
CPT/HCPCS: 99213

== ENCOUNTER → 2024-02-01 13:48 | Outpatient (BNVA) | payer OTHER, SELFPAY | PROVIDERS: PCP Family Medicine; Visit Provider Urology ==

== ENCOUNTER 2024-02-23 10:13 | Outpatient (AMB) | payer OTHER, SELFPAY ==
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
[2024-02-23 10:24] VITALS: BP 117/59; PULSE 62; O2SAT 98; BMI 17.7
== END 2024-02-23 11:08 | disposition home or self-care (01) ==
PROVIDERS: PCP Family Medicine; Visit Provider Nurse Practitioner Family
DX: G89.4 Chronic pain syndrome (principal); M54.50 Low back pain, unspecified; I69.30 Unspecified sequelae of cerebral infarction
CPT/HCPCS: 99214; G2211

== ENCOUNTER → 2024-02-23 10:13 | Outpatient (BNVA) | payer OTHER, SELFPAY | PROVIDERS: PCP Family Medicine; Visit Provider Anesthesiology | DX: G89.21 Chronic pain due to trauma (principal); M54.50 Low back pain, unspecified; I69.30 Unspecified sequelae of cerebral infarction | CPT/HCPCS: 99212 ==

== ENCOUNTER 2024-03-11 14:46 | Outpatient (AMB) | payer OTHER, SELFPAY ==
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
[2024-03-11 15:00] VITALS: BP 114/70; PULSE 92; O2SAT 98; BMI 17.7
== END 2024-03-11 15:18 | disposition home or self-care (01) ==
PROVIDERS: PCP Family Medicine; Visit Provider Nurse Practitioner Family
DX: G89.4 Chronic pain syndrome (principal); M54.50 Low back pain, unspecified; I69.30 Unspecified sequelae of cerebral infarction
CPT/HCPCS: 99214; G2211

== ENCOUNTER → 2024-03-11 14:46 | Outpatient (BNVA) | payer OTHER, SELFPAY | PROVIDERS: PCP Family Medicine; Visit Provider Nurse Practitioner Family | DX: I69.30 Unspecified sequelae of cerebral infarction (principal); M54.50 Low back pain, unspecified; G89.21 Chronic pain due to trauma | CPT/HCPCS: 99212 ==

== ENCOUNTER 2024-03-25 14:25 | Outpatient (AMB) | payer OTHER, SELFPAY ==
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
[2024-03-25 14:35] VITALS: BP 115/61; PULSE 103; O2SAT 98; BMI 17.7
== END 2024-03-25 14:43 | disposition home or self-care (01) ==
PROVIDERS: PCP Family Medicine; Visit Provider Nurse Practitioner Family
DX: G89.21 Chronic pain due to trauma (principal); G89.4 Chronic pain syndrome; M54.50 Low back pain, unspecified; I69.30 Unspecified sequelae of cerebral infarction
CPT/HCPCS: 99214; G2211

== ENCOUNTER → 2024-03-25 14:25 | Outpatient (BNVA) | payer OTHER, SELFPAY | PROVIDERS: PCP Family Medicine; Visit Provider Nurse Practitioner Family | DX: G89.21 Chronic pain due to trauma (principal); G89.4 Chronic pain syndrome; M54.50 Low back pain, unspecified; Z51.81 Encounter for therapeutic drug level monitoring; Z79.891 Long term (current) use of opiate analgesic; Z86.73 Personal history of transient ischemic attack (TIA), and cerebral infarction without residual deficits | CPT/HCPCS: 99212 ==

== ENCOUNTER 2024-04-22 14:37 | Outpatient (AMB) | payer OTHER, SELFPAY ==
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
[2024-04-22 14:42] VITALS: BP 126/68; PULSE 114; RESP 16; O2SAT 98
== END 2024-04-22 14:56 | disposition home or self-care (01) ==
PROVIDERS: PCP Family Medicine; Visit Provider Nurse Practitioner Family
DX: G89.4 Chronic pain syndrome (principal); M54.50 Low back pain, unspecified; I69.30 Unspecified sequelae of cerebral infarction
CPT/HCPCS: 99214; G2211

== ENCOUNTER → 2024-04-22 14:37 | Outpatient (BNVA) | payer OTHER, SELFPAY | PROVIDERS: PCP Family Medicine; Visit Provider Nurse Practitioner Family | DX: G89.4 Chronic pain syndrome (principal); M54.50 Low back pain, unspecified; I69.30 Unspecified sequelae of cerebral infarction; Z51.81 Encounter for therapeutic drug level monitoring; Z79.891 Long term (current) use of opiate analgesic | CPT/HCPCS: 99212 ==

== ENCOUNTER 2024-05-20 14:07 | Outpatient (AMB) | payer OTHER, SELFPAY ==
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
[2024-05-20 14:19] VITALS: BP 95/52; PULSE 110; O2SAT 97; BMI 17.7
== END 2024-05-20 14:55 | disposition home or self-care (01) ==
PROVIDERS: PCP Family Medicine; Visit Provider Nurse Practitioner Family
DX: G89.21 Chronic pain due to trauma (principal); M54.50 Low back pain, unspecified; I69.30 Unspecified sequelae of cerebral infarction
CPT/HCPCS: 99214; G2211

== ENCOUNTER → 2024-05-20 14:07 | Outpatient (BNVA) | payer OTHER, SELFPAY | PROVIDERS: PCP Family Medicine; Visit Provider Nurse Practitioner Family | DX: G89.21 Chronic pain due to trauma (principal); G89.4 Chronic pain syndrome; M54.50 Low back pain, unspecified; I69.30 Unspecified sequelae of cerebral infarction; Z51.81 Encounter for therapeutic drug level monitoring; Z79.891 Long term (current) use of opiate analgesic | CPT/HCPCS: 99212 ==

== ENCOUNTER 2024-06-11 13:39 | Outpatient (AMB) | payer OTHER, SELFPAY ==
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
== END 2024-06-11 14:43 | disposition home or self-care (01) ==
PROVIDERS: PCP Family Medicine; Visit Provider Urology
DX: N32.1 Vesicointestinal fistula (principal); N39.0 Urinary tract infection, site not specified
CPT/HCPCS: 99214

== ENCOUNTER → 2024-06-11 13:39 | Outpatient (BNVA) | payer OTHER, SELFPAY | PROVIDERS: PCP Family Medicine; Visit Provider Urology | DX: N39.0 Urinary tract infection, site not specified (principal); N31.9 Neuromuscular dysfunction of bladder, unspecified; N32.1 Vesicointestinal fistula | CPT/HCPCS: 51798; 99212 ==

== ENCOUNTER 2024-06-17 16:06 | Outpatient (AMB) | payer OTHER, SELFPAY ==
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
[2024-06-17 16:12] VITALS: BP 134/65; PULSE 84; O2SAT 97; BMI 17.7
--- OUTSIDE RECORDS SUMMARY | 2024-06-17 19:45 | XMS_ITS | Clinical Summary ---
Author Organization Unknown Care Team Providers Care Line Analyst Name Role Phone NABEEL DUNHAM Unavailable Unavailable RANDEE MARTINEZ, DEWAYNE Unavailable Ajay renteria Payers Payer Name Policy Type Policy Number Effective Date Expira tion Date DO NOT USE - [employer] [id number] Problems Condition Name Condition Details Condition Category Status Onset Date Resolution Date Last Treatment Date Treating Clinician Comments PRESSURE ULCER OF LEFT HEEL, UNSTAGEABLE Active 317 00:00: 00 ENCOUNTER FOR CHANGE OR REMOVAL OF SURGICAL WOUND DRESSING Active 09-02 00:00: 00 URINARY TRACT INFECTION, SITE NOT SPECIFIED Active 09-02 00:00: 00 ENCOUNTER FOR FITTING AND ADJUSTMENT OF URINARY DEVICE Active 09-02 00:00: 00 MODERATE PROTEIN-CHRISTI BEAU MALNUTRITION Active 09-02 00:00: 00 POLYNEUROPAT HY, UNSPECIFIED Active 09-02 00:00: 00 OTHER CONSTIPATION Active 09-02 00:00: 00 NICOTINE DEPENDENCE, UNSPECIFIED, UNCOMPLICATE D Active 2-18 00:00: 00 ACQUIRED ABSENCE OF RIGHT LEG ABOVE KNEE Active 09-02 00:00: 00 DEPENDENCE ON WHEELCHAIR Active 09-02 00:00: 00 COLOSTOMY STATUS Active 09-02 00:00: 00 HISTORY OF FALLING Active 09-02 00:00: 00 Allergies, Adverse Reactions, Alerts Allergy Name Allergy Type Status Severity Reaction(s) Onset Date Inactive Date Treating Clinician Comments NKA Propensity to adverse reactions Active 2019-08 19:47:1 3 Immunizations Ordered Immunization Name Filled Immunization Name Date Status Comments Refusal Reason INFLUENZA, LAIV (LIVE VIRUS) 2019-02-04 00:00:00 Vital Signs Vital Name Observation Time Observation Value Commen ts Temperature 2019-09-03 10:37:18.000 98.1 [degF] Pulse 2019-09-03 10:37:29.000 103 /min O2 Saturation (%) 2019-09-03 10:37:55.000 97 % Respirations 2019-09-03 10:37:36.000 18 /min Systolic Blood Pressure 2019-09-03 10:37:48.000 120 mm [Hg] Diastolic Blood Pressure 2019-09-03 10:37:48.000 60 mm [Hg] Plan of Treatment Planned Activity Planned Date Details Comments Future Scheduled Test SKILLED NU RSE TO EVALUATE PATIENT AND DEVELOP PLAN OF CARE TO BE COUNTER SIGNED BY PHYSICIAN. [code = SKILLED NURSE TO EVALUATE PATIENT AND DEVELOP PLAN OF CARE TO BE COUNTER SIGNED BY PHYSICIAN.] Future Scheduled Test SKILLED NU RSE MAY INSTRUCT/REINFORCE NEW AND CHANGED MEDICATIONS AND MEDICATION REGIMEN. [code = SKILLED NURSE MAY INSTRUCT/REINFORCE NEW AND CHANGED MEDICATIONS AND MEDICATION REGIMEN.] Future Scheduled Test SKILLED NU RSE TO REVIEW HOME SAFETY EACH VISIT; INSTRUCT PATIENT/CAREGIVER IN MEASURES TO IMPROVE HOME SAFETY AND PREVENT FALLS. [code = SKILLED NURSE TO REVIEW HOME SAFETY EACH VISIT; INSTRUCT PATIENT/CAREGIVER IN MEASURES TO IMPROVE HOME SAFETY AND PREVENT FALLS.] Future Scheduled Test SKILLED NU RSE TO OBTAIN 02 SATS VIA PULSE OXIMETER PRN. [code = SKILLED NURSE TO OBTAIN 02 SATS VIA PULSE OXIMETER PRN.] Future Scheduled Test SKILLED NU RSE FOR INSTRUCTIONS / REINFORCEMENT OF CARE OF INDWELLING CATHETER. [code = SKILLED NURSE FOR INSTRUCTIONS / REINFORCEMENT OF CARE OF INDWELLING CATHETER.] Future Scheduled Test SKILLED NU RSE TO PROVIDE AND INSTRUCT REGARDING FALL PREVENTION INTERVENTIONS. [code = SKILLED NURSE TO PROVIDE AND INSTRUCT REGARDING FALL PREVENTION INTERVENTIONS.] Future Scheduled Test SKILLED NU RSE TO MONITOR PLAN FOR CURRENT TREATMENT OF DEPRESSION SUCH EFFECTS OF MEDICATION AND/OR NEED FOR REFERRAL FOR OTHER TREATMENT. [code = SKILLED NURSE TO MONITOR PLAN FOR CURRENT TREATMENT OF DEPRESSION SUCH EFFECTS OF MEDICATION AND/OR NEED FOR REFERRAL FOR OTHER TREATMENT.] Future Scheduled Test SKILLED NU RSE TO PROVIDE/INSTRUCT REGARDING INTERVENTION(S) TO MONITOR AND MITIGATE PAIN. [code = SKILLED NURSE TO PROVIDE/INSTRUCT REGARDING INTERVENTION(S) TO MONITOR AND MITIGATE PAIN.] Future Scheduled Test SKILLED NU RSE TO PROVIDE INSTRUCT REGARDING INTERVENTION(S) TO PREVENT PRESSURE ULCERS. [code = SKILLED NURSE TO PROVIDE INSTRUCT REGARDING INTERVENTION(S) TO PREVENT PRESSURE ULCERS.] Future Scheduled Test SKILLED NU RSE TO EVALUATE CLIENT'S NUTRITIONAL STATUS REALTED TO NAUSEA AND VOMITING. [code = SKILLED NURSE TO EVALUATE CLIENT'S NUTRITIONAL STATUS REALTED TO NAUSEA AND VOMITING.] Future Scheduled Test SKILLED NU RSE TO PERFORM / INSTRUCT / REINFORCE CLIENT / CAREGIVER PROCEDURE OF WOUND CARE TO L HEEL. CLEANSE WITH NS, APPLY MEDIHONEY AND COVER WITH PROTECTIVE DRESSING 2X/WEEK. CG INDEPENDENT WITH WOUND CARE [code = SKILLED NURSE TO PERFORM / INSTRUCT / REINFORCE CLIENT / CAREGIVER PROCEDURE OF WOUND CARE TO L HEEL. CLEANSE WITH NS, APPLY MEDIHONEY AND COVER WITH PROTECTIVE DRESSING 2X/WEEK. CG INDEPENDENT WITH WOUND CARE] Goal 2019-11-01 Patient Goal - P T ABLE TO SIT DOWN AND ENJOY DINNER WITH FAMILY Goal Provider Goal - A PLAN OF CARE WILL BE ESTABLISHED THAT MEETS ALL PATIENT'S PRISON NEEDS AND COUNTER SIGNED BY PHYSICIAN BY 11.01.19 Goal Provider Goal - PATIENT / CAREGIVER WILL ADMINISTER MEDICATIONS PRESCRIBED EVIDENCED MEDICATION RECONCILIATION AND NO ADVERSE EFFECTS FROM MEDICATION ERRORS NOTED BY 09/23/19 Goal Provider Goal - PATIENT/CAREGIVER WILL VERBALIZE/DEMONSTRATE UNDERSTANDING OF FALL PREVENTION/SAFETY INCLUDING IDENTIFED RISKS AND MEASURES TO MITIGATE RISK BY 09/23/19 Goal Provider Goal - PATIENT WILL DEMONSTRATE OXYGEN SATURATION > 88% OR TO PATIENT'S OPTIMAL LEVEL BY 09/23/19 Goal Provider Goal - PATIENT / CAREGIVER WILL VERBALIZE ADEQUATE KNOWLEDGE OF CATHETER CARE TO MANAGE INDWELLING URINARY CATHETER AND PREVENT COMPLICATIONS BY 09/23/19 Goal Provider Goal - CHANGES IN PATIENT CO-MORBID STATUS WILL BE PROMPTLY IDENTIFIED AND REPORTED TO THE PHYSICIAN. PATIENT/CAREGIVER VERBALIZE/DEMONSTRATE MEASURES TO PREVENT FALLS MEASURED BY 0 FALLS BY ..20 Goal Provider Goal - CHANGES IN PATIENT CO-MORBID STATUS WILL BE PROMPTLY IDENTIFIED AND REPORTED TO THE PHYSICIAN. PATIENT/CAREGIVER VERBALIZE/DEMONSTRATE ABILITY VERBALIZE = 2 SIGNS /SYMPTOMS OF DEPRESSION AND MANAGEMENT OF THEM BY ..20 Goal Provider Goal - CHANGES IN PATIENT CO-MORBID STATUS WILL BE PROMPTLY IDENTIFIED AND REPORTED TO THE PHYSICIAN. PATIENT/CAREGIVER VERBALIZE/DEMONSTRATE ABILITY TO PROPERLY MANAGE PAIN BY ..20 Goal Provider Goal - CHANGES IN PATIENT CO-MORBID STATUS WILL BE PROMPTLY IDENTIFIED AND REPORTED TO THE PHYSICIAN. PATIENT/CAREGIVER VERBALIZE/DEMONSTRATE 3 TECHNIQUES TO PREVENT SKIN BREAKDOWN AND PRESSURE ULCERS BY 10.31.20 Goal Provider Goal - PATIENT WILL VERBALIZE AT LEAST 3 MEASURES TO CONTROL SYMPTOMS BY 09/18/19 Goal Provider Goal - PATIENT WILL DEMONSTRATE INCISIONAL CARE AND IMPROVED WOUND STATUS EVIDENCED BY DECREASE IN SIZE / DRAINAGE OF WOUND TO L HEEL, NO S/S OF INFECTION, AND DECREASED PAIN A RESULT OF SKILLED INTERVENTION BY 5.29.20 Reason for Visit PATIENT HOSPITALIZED Encounters Start Date/Time End Date/Time Encounter Type Admission Type Attending Clinicians Care Facility Care Department Encounter ID Discharge Date Discharge Status Discharge Condition Discharge Reason Percent Goals Met 2019-09-03 00:00:00 2019-11-01 00:00:00 Outpatient NEW ADMISSION DEWAYNE RIVERA [facility] [id number] 00:00:00 DISCHARGED /TRANSFERR ED TO A HOME UNDER CARE OF ORGANIZED HOME HEALTH SERVICE ORGANIZATI ON IN ANTICIPATI ON OF COVERED SKILLED CARE PATIENT HOSPITALIZ ED PATIENT IN HOSPITAL ON DAY 60 TIF COMPLETED 91.67
--- OUTSIDE RECORDS SUMMARY | 2024-06-17 19:45 | XMS_ITS | Clinical Summary ---
Author Organization Unknown Care Team Providers Care Employment Evaluator/Case Manager Name Role Phone NABEEL DUNHAM Unavailable Unavailable RANDEE MARTINEZ, DEWAYNE Unavailable Ajay renteria Payers Payer Name Policy Type Policy Number Effective Date Expira tion Date DO NOT USE - [employer] [id number] Problems Condition Name Condition Details Condition Category [...] WILL BE ESTABLISHED THAT MEETS ALL PATIENT'S [facility] NEEDS AND COUNTER SIGNED BY PHYSICIAN BY [...] 2019-11-01 00:00:00 Outpatient NEW ADMISSION DEWAYNE RIVERA [facility] [id number] 00:00:00 DISCHARGED /TRANSFERR ED TO A HOME UNDER CARE OF ORGANIZED HOME HEALTH SERVICE ORGANIZATI ON IN ANTICIPATI ON OF COVERED SKILLED CARE PATIENT HOSPITALIZ ED PATIENT IN HOSPITAL ON DAY 60 TIF COMPLETED 91.67
== END 2024-06-17 16:19 | disposition home or self-care (01) ==
LOC: HO.PMC 16:06
PROVIDERS: PCP Family Medicine; Visit Provider Nurse Practitioner Family
DX: G89.4 Chronic pain syndrome (principal); M54.50 Low back pain, unspecified; I69.30 Unspecified sequelae of cerebral infarction
CPT/HCPCS: 99214; G2211

== ENCOUNTER → 2024-06-17 16:06 | Outpatient (BNVA) | payer OTHER, SELFPAY | PROVIDERS: PCP Family Medicine; Visit Provider Nurse Practitioner Family | DX: Z51.81 Encounter for therapeutic drug level monitoring (principal); F11.20 Opioid dependence, uncomplicated; M54.50 Low back pain, unspecified; G89.21 Chronic pain due to trauma; G89.4 Chronic pain syndrome; I69.30 Unspecified sequelae of cerebral infarction | CPT/HCPCS: 99212 ==

== ENCOUNTER 2024-12-10 14:33 | Outpatient (AMB) | payer OTHER, SELFPAY ==
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
== END 2024-12-10 15:15 | disposition home or self-care (01) ==
LOC: HO.HUSH 14:34
PROVIDERS: PCP Family Medicine; Visit Provider Urology
DX: N39.0 Urinary tract infection, site not specified (principal); N32.1 Vesicointestinal fistula
CPT/HCPCS: 99213; G2211

== ENCOUNTER → 2024-12-10 14:33 | Outpatient (BNVA) | payer OTHER, SELFPAY | PROVIDERS: PCP Family Medicine; Visit Provider Urology | DX: N32.1 Vesicointestinal fistula (principal) | CPT/HCPCS: 51798; 99212 ==